=== PATIENT | male | born 1965 | race Caucasian/White ===

== ENCOUNTER 2024-12-11 10:33 | Inpatient (IN) ==
[2024-12-11 11:16] LABS: Basophils # (auto) 0.03 K/uL (0.00-0.20); Basophils % (auto) 0.2 %; Eosinophils # (auto) 0.05 K/uL (0.00-0.50); Eosinophils % (auto) 0.4 %; Hematocrit (blood only) 43.2 % (42.0-52.0); Hemoglobin 15.4 g/dl (14.0-18.0); Immature Granulocytes # (auto) 0.08 K/uL (0.01-0.20); Immature Granulocytes % (auto) 0.6 %; Lymphocytes # (auto) 0.98 K/uL (1.20-3.40); Lymphocytes % (auto) 7.3 %; Mean Corpuscular Hemoglobin 30.2 pg (25.0-34.0); Mean Corpuscular Hgb Conc 35.6 g/dL (32.0-36.0); Mean Corpuscular Volume 84.7 fL (80.0-100.0); Mean Platelet Volume 9.8 fL (9.4-12.4); Monocytes # (auto) 1.21 K/uL (0.11-0.59); Monocytes % (auto) 9.1 %; Neutrophils # (auto) 11.02 K/uL (1.40-6.50); Neutrophils % (auto) 82.4 %; Platelet Count 190 K/uL (130-400); RDW Coefficient of Variation 12.9 % (11.5-14.5); RDW Standard Deviation 39.4 fL (36.4-46.3); White Blood Count 13.37 K/ul (4.8-10.8)
[2024-12-11] MEDS: ONDANSETRON INJ 2 MG/ML 2 ML VIAL IV STA (11:26)
[2024-12-11] MEDS: FAMOTIDINE 20MG IV PUSH 20 MG/5 ML SYR IV STA (11:26)
[2024-12-11] MEDS: SODIUM CHLORIDE 0.9% 1,000 ML IV ONE (11:26)
[2024-12-11] MEDS: HYDROmorphone INJ 0.5 MG/0.5 ML SYR IV PRN (11:31)
[2024-12-11 11:34] LABS: Albumin Globulin Ratio 1.6 (0.9-2); BUN Creatinine Ratio 32.7 (10-20); Bilirubin,Total 0.6 mg/dl (0.2-1.0); Calcium 9.4 mg/dl (8.6-10.3); Creatinine Clr Calc Pharmacy 90.9 ml/min; Globulin 2.5 gm/dl (2.5-4.0); Potassium 3.8 mmol/L (3.5-5.1); Total Protein 6.5 gm/dl (6.0-8.3)
[2024-12-11] MEDS: OPTIRAY 320 100ml IV ONE (11:48)
--- NOTE | 2024-12-11 12:03 | Emergency Department Note ---
Impression & Plan Abdominal pain, acute, epigastric, S/P laparoscopic cholecystectomy ED Provider Note NAME: XENIA HUBER Jr AGE: 59 SEX: Male INFORMANT: Patient and ED PROVIDER(S): Joseluis Canales MD CHIEF COMPLAINT: Abdominal pain PLAN: Disposition: Admitted Outpatient prescription management: none Referral: None MEDICAL DECISION MAKING: Patient present because of acute abdominal pain and nausea. He had surgery 5 days ago. He received multiple doses of pain medicine prehospital and was treated with multiple doses of IV Dilaudid here. Patient did require multiple different medications to help control his nausea including Zofran, Reglan and Benadryl, and Phenergan. Despite the medications his symptoms would come back. CT scan did reveal no acute findings from a prior surgical standpoint or otherwise. He had a mild leukocytosis but no other laboratory abnormalities. Cardiac troponin and ECG were normal. I did consult with general surgery and patient was evaluated by his surgeon in the ER. No surgical findings or recommendations noted. Given the patient's symptomatology he cannot go home at this time. I believe further management in the hospital is appropriate. Consultation was made with the [facility] Hospitalist service. Patient was evaluated in the ER and admitted under Dr. Sanderson. I refer you to the EMR for further details. Care/management discussed with: pit manager, general surgery, internal medicine Level of care consideration(s): After review of the information above and other included data, I feel the patient requires escalation of care to admission Triage Nursing notes: reviewed and agree them. Vital Signs: reviewed and remarkable for no significant abnormalities Additional History obtained from: Patient's regarding his postop course. Chronic Medical/Social Conditions affecting care: none Prior/ Outside/ External records reviewed: I did obtain his operative note from 11/26/2024. No complications noted. Patient had a normal laparoscopic cholecystectomy without cholangiogram. Differential Diagnosis: Complications of cholecystectomy, Appendicitis, testicular torsion, infections, diverticulitis, UTI, obstruction, mesenteric ischemia, aortic pathology, inflammatory bowel disease, renal colic, PUD, pancreatitis, biliary pathology, hernia, volvulus, constipation, as well as other pathologies. Diagnostics, independently interpreted by me: ECG: Twelve-lead ECG reveals a normal sinus rhythm with sinus arrhythmia at 75 bpm. Incomplete right bundle branch block and nonspecific ST present. No ST elevation. Cardiac Monitoring: Cardiac monitoring ordered by me: The patient was placed on continuous cardiac monitoring and observed. It revealed a normal sinus rhythm at 80 beats per minute without ectopy or evidence of dysrhythmia. Medical decision rules: none Imaging studies: CT scan of the abdomen pelvis reveals postsurgical findings but no acute abnormalities. I refer you to the EMR for further details. HPI: 59 year old Male arrives for evaluation of acute abdominal pain. This started about 12 hours ago and is over the upper abdomen. The patient also notes the following associated symptoms, nausea. The patient has been given Zofran and fentanyl prehospital for relieving factors. Current pain is rated as 10/10. Patient notes having a cholecystectomy 5 days ago at [facility] by Dr. Dillon. States he was recovering uneventfully. Pt denies LOC, headache, fevers, chills, diaphoresis, visual changes, neck pain, chest pain, breathing difficulties, back pain, melena, hematochezia, urinary symptoms, numbness, weakness, lymphadenopathy, rash, or other complaints.. PAST MEDICAL HISTORY: See Below, arthritis PAST SURGICAL HISTORY: See Below, cholecystectomy SOCIAL HISTORY: See Below, HOME MEDICATIONS: See Below ALLERGIES: See Below VITALS: See Below PHYSICAL EXAMINATION: GENERAL: Awake, alert, uncomfortable-appearing, in no distress HENT: Normocephalic, atraumatic. Oropharynx unremarkable. EYES: Normal conjunctiva. Sclera non-icteric. NECK: Inspection normal. Non-tender. Supple. No nuchal rigidity. FROM. No masses. RESPIRATORY: Clear to auscultation. No wheezes. No rales. Mildly tachypneic. CARDIAC: Normal rate. Normal rhythm. No murmurs. No rubs. Extremities warm and well perfused. Pulses equal. No JVD. GI: Soft, non-distended. Upper tenderness to palpation. No rebound but mild guarding. No masses. Trocar sites appear clean dry and intact. RECTAL: Deferred. MUSCULOSKELETAL: Atraumatic. Chest examination reveals no tenderness. The back is symmetrical on inspection without obvious abnormality. There is no CVA tenderness to palpation. No joint edema. LOWER EXTREMITIES: Calves are equal size bilaterally and non-tender. No edema. No discoloration. NEURO: Normal sensorium. No sensory or motor deficits noted. SKIN: No rash or jaundice noted. PROCEDURES: none CRITICAL CARE: none OBSERVATION NOTE: none Past Med/Surg History Problem List (Updated 12/11/24 @ 12:09 by Joseluis Canales MD) S/P laparoscopic cholecystectomy (Acute) Abdominal pain, acute, epigastric (Acute) Greater trochanteric bursitis of right hip Tendinitis of both rotator cuffs Myofascial pain Lumbar facet joint syndrome Encounter for pre-operative examination CMC arthritis History of radicular syndrome of lower extremity (Chronic) Chronic lumbar pain (Chronic) Sacroiliitis (Chronic) Medical History History of migraine History of COVID-19 Barretts syndrome Dyslipidemia HTN (hypertension) GERD (gastroesophageal reflux disease) Surgical History H/O thumb surgery History of esophagogastroduodenoscopy (EGD) History of colonoscopy History of arthroscopic knee surgery History of elbow surgery Family History Father Family history of diabetes mellitus Other No family history of adverse response to anesthesia Social History Smoking Status: Never smoker Second Hand Exposure: No; Do You Dip or Chew Tobacco: No; Hx Alcohol Use: Yes Alcohol type: beer Hx Substance Use: No Preferred Language: Moroccan Communication Ability: Effective Resource Director Required: No Beliefs That Will Affect Care: None Current Living Situation: Spouse and Family Feels Safe at Home: Yes Assistive Devices: None Allergies Allergies Allergy/AdvReac Type Severity Reaction Status Date / Time No Known Allergies Allergy Verified 12/11/24 13:44 Home Meds Home Medications Medication Instructions Recorded Confirmed lisinopril 10 mg tablet 10 mg PO QAM 07/30/18 12/11/24 galcanezumab-gnlm 120 mg/mL 120 mg subcut MONTHLY 07/29/24 12/11/24 subcutaneous pen injector (Emgality Pen) celecoxib 200 mg capsule 200 mg PO BID 12/11/24 12/11/24 dihydroergotamine 0.5 mg/pump act. 1 spray intranasal UD PRN 12/11/24 12/11/24 (4 mg/mL) nasal spray Prolonged headache attack duloxetine 30 mg capsule,delayed 30 mg PO QAM 12/11/24 12/11/24 release iron,carbonyl 65 mg-vitamin C 125 1 tab PO Q OTHER DAY 12/11/24 12/11/24 mg tablet,delayed release (Vitron-C) promethazine 25 mg tablet 25 mg PO Q6H PRN Nausea 12/11/24 12/11/24 rabeprazole 20 mg tablet,delayed 20 mg PO DAILYBB 12/11/24 12/11/24 release rosuvastatin 5 mg tablet 5 mg PO HS 12/11/24 12/11/24 tadalafil 20 mg tablet 20 mg PO 2XWK 12/11/24 12/11/24 topiramate 100 mg tablet 100 mg PO QAM 12/11/24 12/11/24 Results & Data (ED) Vital Signs Vital Signs - 24 hr 12/11/24 10:45 12/11/24 10:56 12/11/24 11:00 Temperature 36.7 C Temperature Source Oral Pulse Rate 72 73 66 Pulse Rate [Apical] Pulse Rhythm Regular Pulse Rhythm [Apical] Pulse Strength [Apical] Respiratory Rate 16 12 20 Respiratory Effort / Characteristics Respiratory Depth Normal Respiratory Pattern Blood Pressure 151/91 H 149/93 H Blood Pressure [Right Arm] Blood Pressure Mean 111 125 Blood Pressure Mean [Right Arm] Blood Pressure Position [Right Arm] Pulse Oximetry 95 96 96 Oxygen Delivery Method Room Air Room Air Sepsis Recent Fever Within 48 Hours No Sepsis New/Unexplained Change in Mental Status N/A Sepsis Action Taken by Nursing No Action Required 12/11/24 11:30 12/11/24 12:00 12/11/24 12:18 Temperature Temperature Source Pulse Rate 71 73 67 Pulse Rate [Apical] Pulse Rhythm Pulse Rhythm [Apical] Pulse Strength [Apical] Respiratory Rate 24 22 Respiratory Effort / Characteristics Respiratory Depth Respiratory Pattern Blood Pressure 149/92 H 131/81 Blood Pressure [Right Arm] Blood Pressure Mean 117 93 Blood Pressure Mean [Right Arm] Blood Pressure Position [Right Arm] Pulse Oximetry 98 96 Oxygen Delivery Method Sepsis Recent Fever Within 48 Hours Sepsis New/Unexplained Change in Mental Status Sepsis Action Taken by Nursing 12/11/24 12:30 12/11/24 13:00 12/11/24 14:15 Temperature Temperature Source Pulse Rate 73 66 80 Pulse Rate [Apical] Pulse Rhythm Pulse Rhythm [Apical] Pulse Strength [Apical] Respiratory Rate 21 18 21 Respiratory Effort / Characteristics Respiratory Depth Respiratory Pattern Blood Pressure 141/88 H 156/94 H Blood Pressure [Right Arm] Blood Pressure Mean 101 109 Blood Pressure Mean [Right Arm] Blood Pressure Position [Right Arm] Pulse Oximetry 97 97 97 Oxygen Delivery Method Sepsis Recent Fever Within 48 Hours Sepsis New/Unexplained Change in Mental Status Sepsis Action Taken by Nursing 12/11/24 15:30 Temperature Temperature Source Pulse Rate Pulse Rate [Apical] 80 Pulse Rhythm Pulse Rhythm [Apical] Regular Pulse Strength [Apical] Normal Respiratory Rate 16 Respiratory Effort / Characteristics Non-Labored Spontaneous Respiratory Depth Normal Respiratory Pattern Regular Blood Pressure Blood Pressure [Right Arm] 152/100 H Blood Pressure Mean Blood Pressure Mean [Right Arm] 117 Blood Pressure Position [Right Arm] Lying Pulse Oximetry 97 Oxygen Delivery Method Room Air Sepsis Recent Fever Within 48 Hours Sepsis New/Unexplained Change in Mental Status Sepsis Action Taken by Nursing Laboratory Data 12/11/24 16:16 12/11/24 10:42 Lab Results 12/11/24 12/11/24 Range/Units 10:42 14:17 WBC 13.37 H (4.8-10.8) K/ul RBC 5.10 (4.70-6.10) M/uL Hgb 15.4 (14.0-18.0) g/dl Hct 43.2 (42.0-52.0) % MCV 84.7 (80.0-100.0) fL MCH 30.2 (25.0-34.0) pg MCHC 35.6 (32.0-36.0) g/dL RDW Std Deviation 39.4 (36.4-46.3) fL RDW Coeff of Mary Anne 12.9 (11.5-14.5) % Plt Count 190 (130-400) K/uL MPV 9.8 (9.4-12.4) fL Immature Gran % (Auto) 0.6 % Neut % (Auto) 82.4 % Lymph % (Auto) 7.3 % [place] % (Auto) 9.1 % Eos % (Auto) 0.4 % Baso % (Auto) 0.2 % Neut # (Auto) 11.02 H (1.40-6.50) K/uL Lymph # (Auto) 0.98 L (1.20-3.40) K/uL [place] # (Auto) 1.21 H (0.11-0.59) K/uL Eos # (Auto) 0.05 (0.00-0.50) K/uL Baso # (Auto) 0.03 (0.00-0.20) K/uL Immature Gran # (Auto) 0.08 (0.01-0.20) K/uL Sodium 139 (136-145) mmol/L Potassium 3.8 (3.5-5.1) mmol/L Chloride 108 H (98-107) mmol/L Carbon Dioxide 23 (21-32) mmol/L Anion Gap 8 (3-11) BUN 32 H (6-23) mg/dl Creatinine 0.98 (0.6-1.4) mg/dl Est Cr Clr Drug Dosing 90.9 ml/min eGFR 88.83 BUN/Creatinine Ratio 32.7 H (10-20) Glucose 138 H (70-99(Fasting)) mg/dl Calcium 9.4 (8.6-10.3) mg/dl Total Bilirubin 0.6 (0.2-1.0) mg/dl AST 23 (13-39) U/L ALT 24 (7-52) U/L Alkaline Phosphatase 56 (34-104) U/L Troponin I High Sens 7.6 (0-20) pg/ml Total Protein 6.5 (6.0-8.3) gm/dl Albumin 4.0 (3.4-5.0) gm/dl Globulin 2.5 (2.5-4.0) gm/dl Albumin/Globulin Ratio 1.6 (0.9-2) Lipase 33 (11-82) U/L Administered Medications Hydromorphone HCl (Hydromorphone Inj 0.5 Mg/0.5 Ml Syr) 0.5 mg IV Q15M PRN PRN Reason: Pain Stop: 12/25/24 11:11 Last Admin: 12/11/24 14:30 Dose: 0.5 mg Documented By: Admin: 12/11/24 12:28 Dose: 0.5 mg Documented By: Admin: 12/11/24 12:08 Dose: 0.5 mg Documented By: Admin: 12/11/24 11:31 Dose: 0.5 mg Documented By: MART Sodium Chloride (Nss) 1,000 mls @ 125 mls/hr IV .Q8H OMKAR Stop: 12/12/24 07:14 Last Admin: 12/11/24 15:25 Dose: 125 mls/hr Documented By: KENNETH Pantoprazole Sodium 40 mg/ (Dextrose) 100 mls @ 20 mls/hr IV Q5H OMKAR Stop: 01/10/25 16:44 Last Admin: 12/11/24 17:29 Dose: 8 mg/hr, 20 mls/hr Documented By: KENNETH Acetaminophen (Ofirmev) 1,000 mg in 100 mls @ 400 mls/hr IV Q8H OMKAR Stop: 12/12/24 15:59 Last Infusion: 12/11/24 17:46 Dose: Infused Documented By: Admin: 12/11/24 17:26 Dose: 400 mls/hr Documented By: KENNETH Discontinued Medications Diphenhydramine HCl (Diphenhydramine 50 Mg/Ml Vial) 12.5 mg IV NOW STA Stop: 12/11/24 12:54 Last Admin: 12/11/24 13:01 Dose: 12.5 mg Documented By: MART Sodium Chloride (Nss) 1,000 mls @ 999 mls/hr IV .Q1H1M ONE Stop: 12/11/24 12:12 Last Infusion: 12/11/24 12:37 Dose: Infused Documented By: Admin: 12/11/24 11:26 Dose: 999 mls/hr Documented By: MART Famotidine (Pepcid 20mg Iv Push) 20 mg in 5 mls @ 2.5 mls/min IV NOW STA Stop: 12/11/24 11:13 Last Admin: 12/11/24 11:26 Dose: 2.5 mls/min Documented By: MART Promethazine HCl (Phenergan) 12.5 mg in 50.5 mls @ 202 mls/hr IV NOW STA Stop: 12/11/24 15:20 Last Infusion: 12/11/24 15:38 Dose: Infused Documented By: Admin: 12/11/24 15:17 Dose: 202 mls/hr Documented By: KENNETH Pantoprazole Sodium 80 mg/ (Dextrose) 120 mls @ 480 mls/hr IV NOW ONE Stop: 12/11/24 16:44 Last Infusion: 12/11/24 17:15 Dose: Infused Documented By: Admin: 12/11/24 16:55 Dose: 480 mls/hr Documented By: KENNETH Fosaprepitant 150 mg/ Sodium (Chloride) 145 mls @ 300 mls/hr IV ONE ONE Stop: 12/11/24 16:13 Last Admin: 12/11/24 16:38 Dose: Not Given Documented By: KENNETH Metronidazole (Flagyl) 500 mg in 100 mls @ 100 mls/hr IV NOW STA Stop: 12/11/24 16:40 Last Infusion: 12/11/24 16:56 Dose: Infused Documented By: Admin: 12/11/24 15:50 Dose: 100 mls/hr Documented By: KENNETH Ciprofloxacin (Cipro / D5w) 400 mg in 200 mls @ 100 mls/hr IV NOW STA Stop: 12/11/24 17:41 Last Admin: 12/11/24 17:59 Dose: 100 mls/hr Documented By: KENNETH Fosaprepitant 150 mg/ Sodium (Chloride) 150 mls @ 300 mls/hr IV ONE ONE Stop: 12/11/24 16:29 Last Infusion: 12/11/24 17:15 Dose: Infused Documented By: Admin: 12/11/24 16:34 Dose: 300 mls/hr Documented By: KENNETH Ioversol (Optiray 320 100ml) 94 ml IV ONCE ONE Stop: 12/11/24 11:49 Last Admin: 12/11/24 11:48 Dose: 94 ml Documented By: ROBI Metoclopramide HCl (Metoclopramide Hcl Inj 5 Mg/Ml 2 Ml Vial) 5 mg IV ONE ONE Stop: 12/11/24 12:54 Last Admin: 12/11/24 13:02 Dose: 5 mg Documented By: MART Morphine Sulfate (Morphine Sulfate 10 Mg/Ml Carp/Vial) 6 mg IV NOW STA Stop: 12/11/24 15:14 Last Admin: 12/11/24 15:22 Dose: 6 mg Documented By: KENNETH Ondansetron HCl (Ondansetron Inj 2 Mg/Ml 2 Ml Vial) 4 mg IV NOW STA Stop: 12/11/24 11:13 Last Admin: 12/11/24 11:26 Dose: 4 mg Documented By: MART Imaging Data Radiologist's Impression: Abdomen/Pelvis CT 12/11/24 10:54 CT abd pelvis IV con only CLINICAL HISTORY: diffuse abd pain, gallbladder surgery 5 days ago TECHNIQUE: Helical axial images of the abdomen and pelvis were obtained and displayed. Automated dose lowering techniques and/or adjustment according to patient size were utilized for this exam. This exam was performed with intravenous contrast. CT DOSE: 1931.67 mGy.cm COMPARISON: Comparison is made to CT abdomen pelvis 11/28/2008 FINDINGS: Lower chest: Bibasilar atelectasis versus scarring is seen. Liver: Unremarkable. No focal lesions are seen. Gallbladder and biliary tree: Patient is status post cholecystectomy. No intra- or extrahepatic biliary ductal dilation. Pancreas: Unremarkable, no focal lesions. Spleen: Unremarkable. Adrenals: Unremarkable. Kidneys and ureters: Subcentimeter hypodensities are too small to characterize. Bladder: Unremarkable. Reproductive organs: Unremarkable. Bowel: The appendix is normal. A moderate hiatal hernia is seen. Lymph nodes Retroperitoneal: Unremarkable. Pelvic: Unremarkable. Mesenteric: Unremarkable. Peritoneum: Fat stranding and a small amount of free fluid is seen in the gallbladder fossa. No well-defined fluid collection is seen. Vessels: Minimal atherosclerotic disease is noted. Abdominal wall: Fat stranding seen near the umbilicus compatible with port insertion. Bones: Degenerative changes in the visualized spine. IMPRESSION: No evidence of abscess or biliary leak in this patient status post recent cholecystectomy. There is fat stranding in the right upper quadrant compatible with recent instrumentation, as well as abdominal wall fluid. ACT 112: Negative or not required by law. Electronically signed by: Jacobo Mcdonough M.D. 12/11/2024 12:06 PM Discharge Plan Visit Data Chief Complaint: GI Assessment Stated Complaint: NAUSEA, AB PAIN ED Provider: Joseluis Canales Discharge Problem: Abdominal pain, acute, epigastric, S/P laparoscopic cholecystectomy Patient Disposition: Admitted As Inpatient Discharge Instructions Interventions: ED Discharge Assessment Last Done: 12/11/24 16:36
--- NOTE | 2024-12-11 12:07 | CT Scan Report ---
CT abd pelvis IV con only CLINICAL HISTORY: diffuse abd pain, gallbladder surgery 5 days ago TECHNIQUE: Helical axial images of the abdomen and pelvis were obtained and displayed. Automated dose lowering techniques and/or adjustment according to patient size were utilized for this exam. This e xam was performed with intravenous contrast. CT DOSE: 1931.67 mGy.cm COMPARISON: Comparison is made to CT abdomen pelvis 11/28/2008 FINDINGS: Lower chest: Bibasilar atelectasis versus scarring is seen. Liver: Unremarkable. No focal lesions are seen. Gallbladder and biliary tree: Patient is status post cholecystectomy. No intra- or extrahepatic bilia ry ductal dilation. Pancreas: Unremarkable, no focal lesions. Spleen: Unremarkable. Adrenals: Unremarkable. Kidneys and ureters: Subcentimeter hypodensities are too small to characterize. Bladder: Unremarkable. Reproductive organs: Unremarkable. Bowel: The appendix is normal. A moderate hiatal hernia is seen. Lymph nodes Retroperitoneal: Unremarkable. Pelvic: Unremarkable. Mesenteric: Unremarkable. Peritoneum: Fat stranding and a small amount of free fluid is seen in the gallbladder fossa. No well- defined fluid collection is seen. Vessels: Minimal atherosclerotic disease is noted. Abdominal wall: Fat stranding seen near the umbilicus compatible with port insertion. Bones: Degenerative changes in the visualized spine. IMPRESSION: No evidence of abscess or biliary leak in this patient status post recent cholecystectomy. There is f at stranding in the right upper quadrant compatible with recent instrumentation, as well as abdominal wall fluid. ACT 112: Negative or not required by law. Electronically signed by: Jacobo Mcdonough M.D. 12/11/2024 12:06 PM
[2024-12-11] MEDS: diphenhydrAMINE 50 MG/ML VIAL IV STA (13:01)
[2024-12-11] MEDS: METOCLOPRAMIDE HCL INJ 5 MG/ML 2 ML VIAL IV ONE (13:02)
--- OUTSIDE RECORDS SUMMARY | 2024-12-11 14:46 | External Medical Summary ---
Author Name Unknown Address Unknown Organization K09:[facility] [place] [address] Laboratory Report Ordering Provider Test Date Status TERRANCE NAVARRO 11/28/2024 07:19:47 Final Observation Date Value Abnormality Reference (Units ) Status BUN 11/28/2024 07:19:47 20 6-20 (mg/dL) Final Creatinine 11/28/2024 07:19:47 1.1 0.6-1.2 (mg/dL) Final Glomerular filtration rate/1.73 sq M.predicted [Volume Rate/Area] in Serum, Plasma or Blood by Creatinine-based formula (CKD-EPI) 11/28/2024 07:19:47 76 >=60 (mL/min) Final eGFR is calculated based on the CKD-EPI 2020 equation. Sodium 11/28/2024 07:19:47 141 135-146 (m mol/L) Final Potassium 11/28/2024 07:19:47 4.3 3.5-5.1 (m mol/L) Final Cl 11/28/2024 07:19:47 107 98-107 (mm ol/L) Final CO2 11/28/2024 07:19:47 23 22-32 (mmo l/L) Final Anion gap 11/28/2024 07:19:47 11 7-15 (mmol /L) Final Glucose 11/28/2024 07:19:47 110 70-120 (mg /dL) Final Calcium 11/28/2024 07:19:47 10.1 8.4-10.2 ( mg/dL) Final Performing Location [facility] [place] [id number]
--- OUTSIDE RECORDS SUMMARY | 2024-12-11 14:46 | External Medical Summary | Summary of Care ---
Author Name Unknown Organization [facility] Address [address] [place] [address] Phone [phone] Care Team Providers Care Project Scientist Name Role Phone Buck Chawla MD Primary Care Provider + Reason for Visit * Reason Comments Outpatient Testing Encounter Details Date Type Department Care Team (Late st Contact Info) Description 11/28/2024 7:20 AM EST Laboratory Laboratory [facility] [address] [place] [id number] [facility] [address] [place] [address] Other hyperlipidemia; HTN, goal below 140/90 Allergies No known active allergiesdocumented as of this encounter (statuses as of 11/28/2024) Medications Famotidine 20 MG Oral Tablet (Pepcid) Take 1 Tablet by mouth in the morning and 1 Tablet before bedtime. Active Aspirin 81 MG Oral Tablet Delayed Release Start: 08/24/22 10:47:00 EDT 08/24/20 22 Active Magnesium Oxide 250 MG Oral Tablet Take 750 mg by mouth daily. Active Vitamin D3 125 MCG (5000 UT) Oral Capsule Take 1 Capsule by mouth in the morning. Active RABEprazole Sodium 20 MG Oral Tablet Delayed Release TAKE 1 TABLET BY MOUTH TWICE DAILY 30 MINUTES BEFORE MORNING AND EVENING MEALS 03/18/20 24 Active Tadalafil 20 MG Oral Tablet (Cialis) Take 1 Tablet by mouth once a day on Monday and Monday only. Take no more than 3 doses per week as needed for sexual activity 20 Tablet 6 05/28/20 24 Active Dihydroergotamine Mesylate 4 MG/ML Nasal Solution (Migranal) Instil 1 spray into each nostril, wait 15 min then repeat 1 spray into each nostril. Repeat these instructions once a day for 3 days for prolonged headache attack. 8 mL 5 06/27/20 24 Active Galcanezumab-gnlm 120 MG/ML Subcutaneous Solution Auto-injector (Emgality) Starting 30 days after injecting loading dose: Inject 1 ml into thigh, arm or stomach once monthly. Discard injector appropriately. 3 mL 6 06/27/20 24 Active Lisinopril 10 MG Oral Tablet (Prinivil)Indicati ons:HTN, goal below 140/90 Take 1 Tablet by mouth in the morning. 90 Tablet 3 08/08/20 24 Active DULoxetine HCl 30 MG Oral Capsule Delayed Release Particles (Cymbalta)Indicati ons:Chronic bilateral low back pain without sciatica Take 1 Capsule by mouth in the morning. 90 Capsule 1 09/10/20 24 Active Celecoxib 200 MG Oral Capsule (CeleBREX)Indicati ons:Chronic bilateral low back pain without sciatica,Generaliz ed osteoarthritis TAKE 1 CAPSULE BY MOUTH ONCE DAILY IN THE MORNING AND 1 CAPSULE ONCE DAILY BEFORE BEDTIME 180 Capsule 1 09/30/20 24 Active Ondansetron 4 MG Oral Tablet Disintegrating (Zofran) Place 2 Tablets on tongue every 8 hours as needed for Nausea. dissolve on tongue. 15 Tablet 5 10/09/20 24 Active Topiramate 100 MG Oral Tablet (topAMAX) Take 1 Tablet by mouth in the morning. 90 Tablet 2 10/09/20 24 Active Vitron-C 65-125 MG Oral Tablet (Iron-Vitamin C 65-125 mg per tab) Take 1 tablet by mouth every other day for RLS/PLMD. Repeat labs in 3-6 months. Hold iron for 48 hours prior to morning lab draw. 60 Tablet 1 10/22/20 24 Active Rosuvastatin Calcium 5 MG Oral Tablet (Crestor)Indicatio ns:Other hyperlipidemia Take 1 Tablet by mouth at bedtime. 90 Tablet 10/25/20 24 Active Calcium Carbonate 1250 (500 Ca) MG Oral Tablet Chewable Take 2 Tablets by mouth in the morning and 2 Tablets before bedtime. 07/29/20 Active oxyCODONE HCl 5 MG Oral Tablet (Oxy IR) Take 3 Tablets by mouth every 6 hours as needed. 06/18/20 Active Riboflavin 100 MG Oral Tablet ([facility] Vitamin B-2) Take 4 Tablets by mouth in the morning. Active Vitamin C 500 MG Oral Packet Take 2 Tablets by mouth in the morning. Active Promethazine HCl 25 MG Oral Tablet (Phenergan) One tab by mouth every 6 hours, max 2 tabs/day if needed for nausea. 60 Tablet 1 11/14/20 Active documented as of this encounter (statuses as of 11/28/2024) Active Problems Problem Noted Date Diagnosed Date Biliary dyskinesia 11/18/2024 Positional sleep apnea 10/11/2024 Periodic limb movement disorder (PLMD) Well adult exam 12/20/2023 Overview (11/22/2024): 05/13 sleep study no HALI 02/2024 colon WNL kiya 10y 01/13 Stress echo WNL. Prostate CA diagnosed in February 2019 (RLM and RLA 3 and 9% of cores, Gl 3+3 grade group 1) then had a benign confirmatory biopsy in March 2020 at . His psa has been fine. We got an MRI 2021 (with ativan) and he has a anterior left PIRADS 3 lesionleft apec nataly and right mid was gl 3+3 . It was biopsied 07/2022 and was visible on ultrasound. Isoechoic. He has ED H/O dysplastic nevus 03/07/2023 Overview (03/07/2023): low grade dysplastic nevus (R lower back 11/2005), dysplastic nevus (R chest) Other insomnia 03/16/2022 Benign essential tremor 03/16/2022 Gastroesophageal reflux disease without esophagi tis 03/16/2022 Helicobacter positive gastritis 03/16/2022 History of Madison's esophagus 03/16/2022 Hyperlipidemia 03/16/2022 Hx of nonmelanoma skin cancer 03/07/2022 Overview (03/13/2023): basal cell carcinoma (R central mid back 03/12, R distal calf 03/12, R distal pretibial region 03/11, R upper back 11/2005, R angle of mandible 11/2005) Other male erectile dysfunction 11/20/2019 Adenocarcinoma of prostate 03/27/2019 Hypogonadism in male 03/27/2019 HTN, goal below 140/90 documented as of this encounter (statuses as of 11/28/2024) Resolved Problems Problem Noted Date Diagnosed Date Resolved Date Ankylosing spondylitis of sacral region 12/20/2023 04/13/2024 Ankylosing spondylitis 04/22/202204/13 Dysplastic nevi 03/16/2022 03/13/2023 Inflammatory polyarthritis 03/27/2019 0 04/13/2024 documented as of this encounter (statuses as of 11/28/2024) Immunizations Name Administration Dates Next Due COVID-19 mRNA, LNP-s, No Pre serve, 2-Dose Series (Moderna) 09/10/2021,01/22/2021,12/26/2020 COVID-19 mRNA, LNP-s, No Pre serve, 2-Dose Series (Pfizer) 01/18/2022 COVID-19, mRNA, LNP-s, PF, B ooster, 100mcg/0.5mg (Moderna) 03/05/2022 Covid-19, Mrna, Lnp-s, Pf, B ivalent, 30 Mcg, IM, 12 yrs and above (Pfizer) 08/29/2022 PPD 10/02/2012 Pneumococcal Conjugate Vacc, 13 Valent (Prevnar) 03/16/2022 Pneumococcal Conjugate Vacci ne, 20-valent ([id number]) 11/22/2024 Seasonal Influenza Vac., MDV , IM, 0.5 mL (Fluzone) 07/30/2020,08/14/2019,08/20/2018,2016,09/21/2015,08/03/2014,11/18/2013,0 07/19/2012,08/27/2010 Seasonal Influenza Virus Vac cine, Unspecified Formulation 10/21/2021,11/16/2016 Seasonal Influenza, PF, 6 M & above, IM , (FluLaval or Fluzone) 10/26/2023 Seasonal Influenza, Quadriva lent, No Preserve, IM 11/16/2016 Seasonal Influenza, Trivalen t, (IIV3), PF, (Fluzone) 10/08/2024 TDAP, Age 7 and older, IM (Adacel) 10/04/2017, Zoster Vaccine Recombinant (Shingrix) 12/07/2020 ,09/18/2020 documented as of this encounter Social History Tobacco Use Types Packs/Day Years Used Date Smoking Tobacco: Never Smokeless Tobacco: Never Alcohol Use Standard Drinks/Week Comments Yes 53.3 (1 standard drink = 0.6 oz pure alcohol) rarely PHQ-2 Answer Date Recorded PHQ Adult Total Score 0 11/22/2024 Hunger Vital Sign Answer Date Recorded Within the past 12 months, y ou worried that your food would run out before you got the money to buy more. Never true 11/08/20 24 Within the past 12 months, t he food you bought just didn't last and you didn't have money to get more. Never true 11/08/2024 Childcare Answer Date Recorded Do you feel overwhelmed with taking care of a child, family member or friend? No 11/08/2024 Does your family need help f inding childcare? (Household - for ages 0-17 years) Not on file 11/08/2024 Clothing Answer Date Recorded Have you been unable to get clothing when it was really needed? No 11/08/2024 Is your family able to get c lothes or diapers when needed? (Household - for ages 0-17 years) Not on file 11/08/2024 Personal Safety Answer Date Recorded Do you feel unsafe or have concerns for your saf ety? No 11/08/2024 Do you have concerns for you r family's safety? (Household - for ages 0-17 years) Not on file 11/08/2024 Utilities Answer Date Recorded Do you have trouble paying y our heating, water, or electric bill? No 11/08/2024 Is your family able to pay t he heat, water, or electric bill? (Household - for ages 0-17 years) Not on file 11/08/2024 Does your family have access to good internet? (Household - for ages 0-17 years) Not on file 11/08/2024 Employment Status Answer Date Recorded Are you unemployed or without regular income? No 11/08/2024 Does the household have a re gular source of income? (Household - for ages 0-17 years) Not on file 11/08/2024 Social Connections Answer Date Recorded How often do you feel lonely or isolated from th ose around you? Never 11/08/2024 Financial Resource Strain Answer Date R ecorded Do you have any trouble payi ng for your medications, or do you think you might in the future? No 11/08/2024 Does your family have troubl e paying for medicine? (Household - for ages 0-17 years) Not on file 11/08/2024 Transportation Needs Answer Date Record ed Do you have trouble getting a ride to medical visits or work? (Adult - for ages 18 years and over) Not on file 11/08/2024 Does your family have a hard time getting a ride to doctors visits? (Household - for ages 0-17 years) Not on file 11/08/2024 Has lack of transportation k ept you from medical appointments, meetings, work, or from getting things needed for daily living? Check all that apply. No 11/08/2024 Do you (or your family) have trouble finding or paying for a ride (transportation)? (Household - for ages 0-17 years) Not on file 11/08/2024 Housing Stability Answer Date Recorded Do you currently live in a s helter or have no steady place to sleep at night? No 11/08/2024 Do you think you are at risk of becoming homeless? (Adult - for ages 18 years and over) Not on file 11/08/2024 Does your family worry about paying for your home or becoming homeless? (Household - for ages 0-17 years) Not on file 1 01/09/2024 Are you homeless or worried that you might be in the future? No 11/08/2024 Are you (or your family) joy eless or worried that you might be in the future? (Household - for ages 0-17 years) Not on file Food Insecurity Answer Date Recorded Do you need food for this week? No 11/08/2024 Are you able to get enough f ood for your family? (Household - for ages 0-17 years) Not on file 11/08/2024 Does your family need food t his week? (Household - for ages 0-17 years) Not on file 11/08/2024 Do you always have enough fo od for your family? 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 Not on file Not on file Not on file documented as of this encounter Plan of Treatment Upcoming Encounters Date Type Department Care Team (Latest Contact Info) Description 12/06/2024 1:15 PM EST Hospital Encounter [facility], Operating [facility] [address] [place] [phone] Tony Dillon MD [address] [place] [address] 12/06/2024 1:15 PM EST - 12/06/2024 2:39 PM EST Surgery OR [facility], Operating Room [facility] [address] [place] [phone] Tony Dillon MD [address] [place] [address] LAPAROSCOPIC CHOLECYSTECTOMY 12/18/2024 8:40 AM EST Office Visit Dermatology [address] [place] [address] Cari Marie PA-C [address] [place] [address] [place] [address] 12/23/2024 2:15 PM EST Office Visit General Surgery, [facility] [address] [place] [address] Tony Dillon MD [address] [place] [address] 02/04/2025 3:00 PM EDT Office Visit Gastroenterology, [facility] [address] [facility] [place] [address] Che Munoz CRNP [address] [place] [address] 02/12/2025 9:50 AM EDT Office Visit Rheumatology, [place] [address] [place] [address] Denise Mcdowell MD [address] [place] [address] 05/06/2025 2:30 PM EDT Office Visit Sleep Disorders Ctr [facility] [address] [place] [place] [phone] Flakita Eaton CRNP [address] [place] [address] 06/03/2025 3:30 PM EDT Telemedicine Urology [facility] [address] [place] [address] Jes Goddard MD [address] [place] [phone] Pending Results Name Type Priority Associated Diagnoses Date /Time LIPID PANEL WITH DIRECT LDL IF TG IS HIGH Lab Routine Other hyperlipidemia 11/28/2024 7:19 AM EST BASIC METABOLIC PANEL Lab Routine HTN, goal below 140/90 11/28/2024 7:19 AM EST Scheduled Procedures Name Priority Associated Diagnoses Date/Ti me LAPAROSCOPIC CHOLECYSTECTOMY Biliary dyskinesia 12/06/2024 1:15 PM EST COLONOSCOPY FLEXIBLE PROXIMA L DIAGNOSTIC Recall Screening for colon cancer Health Maintenance Due Date Last Done Comments Hepatitis B Vaccine (1 of 3 - 19+ 3-dose series) 1984 Cologuard 2010 Fecal Occult Blood Test 2010 Sigmoidoscopy 2010 COVID-19 Vaccine ( season) 2024 08/29/2022, 03/05/2022, 01/18/2022, Additional history exists GFR 06/26/2025 06/26/2024, 120 05/2023, 10/18/2023, Additional history exists Depression Screening 11/22/2025 11/22/2024 Albumin/Creatinine Ratio 10/26/2026 10/26/2023, 04/2 06/2023 Diabetes Screening 06/26/2027 06/26/2024, 1 12/18/2022, 05/25/2022, Additional history exists DTap/Tdap Vaccines (3 - Td or Tdap) 10/04/2027 10/04/2017, 01/16/2008 Lipid Panel 10/26/2028 10/26/2023, 04/2022, 03/17/2021, Additional history exists Colonoscopy 02/19/2034 02/20/2024, 0 12/2023, 11/09/2012 Colorectal Cancer Screening 02/19/2034 Zoster Vaccines Completed 12/07/2020, 09/18/2020 Influenza Vaccine (FLU shot) Completed , 10/26/2023, 10/21/2021, Additional history exists Pneumococcal Vaccine: 50+ Years Completed 11/22/2024, 03/16/2022 HPV (Gardasil) Vaccine Aged Out No lo nger eligible based on patient's age to complete this topic MENINGOCOCCAL (MENACTRA/MENVEO) Aged Out No longer eligible based on patient's age to complete this topic documented as of this encounter Medical Devices Not on filedocumented as of this encounter Visit Diagnoses Diagnosis Biliary dyskinesia- Primary Other specified disorder of gallbladder Other hyperlipidemia HTN, goal below 140/90 Unspecified essential hypertension Biliary dyskinesia Other specified disorder of gallbladder documented in this encounter Care Teams Project Scientist Relationship Specialty Start Date End Date Buck Chawla MD [address] [place] [id number] PCP - General Family Medicine 11/18/24 documented as of this encounter
--- OUTSIDE RECORDS SUMMARY | 2024-12-11 14:46 | External Medical Summary | Summary of Care ---
Author Name Unknown Organization [facility] Address [address] [place] [address] Phone [phone] Care Team Providers Care Lab Support Tech Name Role Phone Buck Chawla MD Primary Care Provider + Reason for Visit * Auth/Cert Specialty Diagnoses / Procedures Referred By Contac t Referred To Contact Diagnoses Biliary dyskinesia Biliary dyskinesia [K82.8] Procedures LAPAROSCOPY; CHOLECYSTECTOMY LAPAROSCOPIC CHOLECYSTECTOMY Tony Dillon MD [address] [place] [address] Phone: tel: fax: OR OSS, Operating Room [facility] [address] [place] [address] Phone: tel: Referral ID Status Reason Start Date Expiration Date Visits Re quested Visits Authorized [id number] Encounter Details Date Type Department Care Team (Latest Contact Info) Description 12/06/2024 6:39 AM EST - 12/06/2024 10:14 AM EST Hospital Encounter OR [facility], Operating Room [facility] [address] [place] [id number] Tony Dillon MD [address] [place] [address] Discharge Disposition: Home - Self Care Allergies No known active allergiesdocumented as of this encounter (statuses as of 12/06/2024) Medications Famotidine 20 MG Oral Tablet (Pepcid) [...] morning and 2 Tablets before bedtime. 07/29/20 24 Active oxyCODONE HCl 5 MG Oral Tablet (Oxy IR) Take 3 Tablets by mouth every 6 hours as needed. 06/18/20 24 Active Riboflavin 100 MG Oral Tablet ([facility] Vitamin B-2) Take 4 Tablets by mouth in the morning. Active Vitamin C 500 MG Oral Packet Take 2 Tablets by mouth in the morning. Active Promethazine HCl 25 MG Oral Tablet (Phenergan) One tab by mouth every 6 hours, max 2 tabs/day if needed for nausea. 60 Tablet 1 11/14/20 24 Active oxyCODONE-Acetamin ophen 5-325 MG Oral Tablet (Percocet) Take 1 Tablet by mouth every 6 hours as needed for Pain, Moderate. 10 Tablet 5 9:56 AM EST 12/06/19 25 Active documented as of this encounter (statuses as of 12/06/2024) Active Problems Problem Noted Date Diagnosed Date Biliary dyskinesia 11/18/2024 Positional sleep apnea 10/11/2024 Periodic limb movement disorder (PLMD) 4 Well adult exam 12/20/2023 Overview (11/22/2024): 05/13 sleep study no HALI 02/2024 colon WNL kiya 10y 01/13 Stress echo WNL. Prostate CA diagnosed in February 2019 (RLM and RLA 3 and 9% of cores, Gl 3+3 grade group 1) then had a benign confirmatory biopsy in March 2020 at . His psa has been fine. We got an MRI 2022 (with ativan) and he has a anterior [...] 03/16/2022 Helicobacter positive gastritis 03/16/2022 History of Ely's esophagus 03/16/2022 Hyperlipidemia 03/16/2022 Hx of nonmelanoma skin cancer 03/07/2022 Overview (03/13/2023): basal cell carcinoma (R central mid back 03/12, R distal calf 03/12, R distal pretibial region 03/11, R upper back 11/2005, R angle of mandible 11/2005) Other male erectile dysfunction 11/20/2019 Adenocarcinoma of prostate 03/27/2019 Hypogonadism in male 03/27/2019 HTN, goal below 140/90 documented as of this encounter (statuses as of 12/06/2024) Resolved Problems Problem Noted Date Diagnosed Date Resolved Date Ankylosing spondylitis of sacral region 12/20/2023 04/13/2024 Ankylosing spondylitis 04/22/202204/13 Dysplastic nevi 03/16/2022 03/13/2023 Inflammatory polyarthritis 03/27/2019 0 04/13/2024 documented as of this encounter (statuses as of 12/06/2024) Immunizations Name Administration Dates Next Due COVID-19 mRNA, LNP-s, No Pre serve, 2-Dose Series (Moderna) 09/10/2021,01/22/2021,12/26/2020 COVID-19 mRNA, LNP-s, No Pre serve, 2-Dose Series (Page Mage) 01/18/2022 COVID-19, mRNA, LNP-s, PF, B ooster, 100mcg/0.5mg (Moderna) 03/05/2022 Covid-19, Mrna, Lnp-s, Pf, B ivalent, 30 Mcg, IM, 12 yrs and above (Pfizer) 08/29/2022 PPD 10/02/2012 Pneumococcal Conjugate Vacc, 13 Valent (Prevnar) 03/16/2022 Pneumococcal Conjugate Vacci ne, 20-valent ([id number]) 11/22/2024 Seasonal Influenza Vac., MDV , IM, [...] 11/08/2024 Does the household have a re lar source of income? 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 on file Not on file Not on file documented as of this encounter Last Filed Vital Signs Vital Sign Reading Time Taken Comments Blood Pressure 142/90 12/06/2024 10:00 AM EST Pulse 78 12/06/2024 10:00 AM EST Temperature 36.3 C (97.4 F) 12/06/2024 9:30 AM ES T Respiratory Rate 18 12/06/2024 10:00 AM EST Oxygen Saturation 99% 12/06/2024 10:00 AM EST Inhaled Oxygen Concentration - - Weight 93.9 kg (207 lb) 12/06/2024 6:59 AM EST Height 190.5 cm (6' 3") 12/06/2024 6:59 AM EST Body Mass Index 25.87 12/06/2024 6:59 AM EST documented in this encounter Discharge Instructions * Discharge Instr - AVS* Tony Dillon MD - 12/06/2024 7:39 AM EST Discharge Date: 12/06/2024 The information below provides you with the instructions and the list of medications you need to betaking following discharge from the hospital. If you have any questions, please ask before leaving.Please carry this letter with you when you see your doctor in the clinic. If you have questions, you can reach us at the numbers above. Post Anesthesia Instructions: 1. Do not drive today. 2. Resume driving when surgeon permits, in 3 day(s) as long as not taking narcotics. 3. Do not make important decisions or sign legal documents today. 4. Call surgeon for: Temperature evaluation greater than 101.5 degrees Uncontrollable pain Excessive Bleeding Persistent Nausea and vomiting Medication intolerance (nausea, vomiting, or rash) 5. For nausea and vomiting use only clear liquids such as: tea, soda, bouillon until nausea subsides, then gradually increase diet as tolerated. Don't take narcotics on empty stomach, this can cause worsening of your nausea. 6. If you have any concerns or questions, call your surgeon's office, . If the physician is unavailable and it is an emergency, call [phone] or go to the nearest emergency room. Instructions for: Inguinal Hernia, Laparoscopic Hernia or Cholecystectomy, Umbilical or Ventral Hernia INCISION CARE: If present, remove any outer dressing(s) in 36 hours. The incision(s) may be sealed with sutures/khang, a skin adhesive (Dermabond), or covered with white adhesive tapes known as steri-strips. Either way there is no need to cover up the incisions again with gauze unless desired or there is drainage. TO PREVENT SWELLING: Swelling and bruising around incisions is common. If groin surgery was performed, the swelling and bruising can involve the scrotum and penis/labial area. Do not be alarmed. It will resolve on its own with time. Apply an ice pack to the incision (20 min on, 20 min off) for the first 24-48 hours to help with pain and swelling. SHOWER: You may shower 36 hours after surgery and get the incision(s) or steri-strips wet with soapy water and gently pat them dry. If the steri-strips come off in the shower, do not become concerned. If they are still in place 10 days after surgery, you may remove them. PAIN MEDICATION: You will usually be given a prescription for a narcotic pain medication (usually Vicodin or Percocet). Options for non-constipating pain medications include products that include ibuprofen or Tylenol. Avoid taking narcotic pain medication on an empty stomach as this makes more prone to nausea and vomiting, which is a side effect of these medications. BOWEL MEDICATION: To combat constipation, you may take over the counter laxatives, fiber therapy, or prune juice. Drink plenty of fluids. COMMON COMPLAINTS: Shoulder pain and gas pains from the carbon dioxide used during the procedure is common with laparoscopic preocedures. Your body absorbs this gas naturally over a 48-72 hour period. Tylenol (Acetaminophen) or Ibuprofen (Motrin) is usually sufficient to relieve this discomfort. If you have had a laparoscopic ventral hernia repair there will be a roll of gauze which should remain over your hernia site anchored with the abdominal binder. Try to keep this in place as much as possible before your first post-op clinic visit; you may take it off temporarily for baths or showers. URINATION: If you cannot urinate, sit in a warm bath then try again. Activity : Rest today. Do not do any heavy lifting (more than 20lbs pounds) or any vigorous exercise for 4 week(s). Return to School or Work: May return to work/school as tolerated on light duty; 4 week(s) to returnwithout restrictions. Diet: Resume previous diet Follow-up Visit with: When: in 2 weeks Discharged To: Home documented in this encounter Progress Notes * Tony Dillon MD - 12/06/2024 9:29 AM EST [facility] [address] [id number] OUTPATIENT SURGERY DISCHARGE SUMMARY NOTE Name: Jesenia Olmedo Location: OR [facility]/OR Date: 12/06/2024 Time: 9:29 AM Surgery Date: 12/06/2024 Procedure: LAPAROSCOPIC CHOLECYSTECTOMY N/A Surgeon: Tony Dillon MD Discharge Diagnosis: biliary dyskinesia After examination of this patient, I have determined he is ready for discharge to home when the patient meets criteria. Discharge instructions were given to the patient. documented in this encounter H&P Notes * Tony Dillon MD - 12/06/2024 7:35 AM EST No changes B CTA RRR Abd: benign Source Note - Tony Dillon MD - 11/18/2024 8:18 AM EST [address] [address] [facility] Chief Complaint Patient presents with NEW PATIENT Nausea and gallbladder issues History of Present Illness: Jesenia Olmedo Jr. is a 59 year old male who has been having right upperquadrant pain. The pain has been present for months. The pain does not radiate to the patient's back. The patient does have nausea associated with it. The patient does not have any jaundice associated with it. The pain is made worse by fatty or fried foods. Characteristics of the pain are as follows: Location: RUQ without radiation Quality: pressure Chronicity: Onset month(s) ago, stable since Aggravating factors: eating and fatty foods Alleviating factors: none Associated symptoms: anorexia and nausea Past Medical History Past Medical History: Diagnosis Date Gastroesophageal reflux disease without esophagitis HTN, goal to be determined Other hyperlipidemia Prostate cancer (HCC) 2020 some atypical cells, just monitoring Past Surgical History Past Surgical History: Procedure Laterality Date COLONOSCOPY, DIAGNOSTIC (RECTUM) 02/20/2024 hemorrhoids/recall 10 years/COLONOSCOPY FLEXIBLE PROXIMAL DIAGNOSTIC performed by Rashawn Nuno DO at ENDOSCOPY [facility] EGD, FLEXIBLE, DIAGNOSTIC 02/02/2016 acid reflux, HH/ESOPHAGOGASTRODUODENOSCOPY (EGD), FLEXIBLE, TRANSORAL, DIAGNOSTIC performed by Wendy Mathew DO at ENDOSCOPY [facility] EGD, FLEXIBLE, DIAGNOSTIC 04/27/2021 hiatal hernia, normal bx / ESOPHAGOGASTRODUODENOSCOPY (EGD), FLEXIBLE, TRANSORAL, DIAGNOSTIC performed by Eliot Patterson MD at ENDOSCOPY [facility] EGD, FLEXIBLE, W/BIOPSY 09/2010 nl tissue bx, no ely's HAND/FINGER SURGERY NEC Left trapeziectomy INFORMATION 2001 right knee repair OTHER VASECTOMY PROSTATE BIOPSY 03/11/2019 done in office, Dr Goddard Medications: Current Outpatient Medications Medication Sig Dispense Refill Famotidine 20 MG Oral Tablet (Pepcid) Take 1 Tablet by mouth in the morning and 1 Tablet before bedtime. Aspirin 81 MG Oral Tablet Delayed Release Start: 08/24/22 10:47:00 EDT Magnesium Oxide 250 MG Oral Tablet Take 750 mg by mouth daily. Vitamin D3 125 MCG (5000 UT) Oral Capsule Take 1 Capsule by mouth in the morning. RABEprazole Sodium 20 MG Oral Tablet Delayed Release TAKE 1 TABLET BY MOUTH TWICE DAILY 30 MINUTES BEFORE MORNING AND EVENING MEALS Tadalafil 20 MG Oral Tablet (Cialis) Take 1 Tablet by mouth once a day on Monday and Monday only. Take no more than 3 doses per week as needed for sexual activity 20 Tablet 6 Dihydroergotamine Mesylate 4 MG/ML Nasal Solution (Migranal) Instil 1 spray into each nostril, wait15 min then repeat 1 spray into each nostril. Repeat these instructions once a day for 3 days for prolonged headache attack. 8 mL 5 Galcanezumab-gnlm 120 MG/ML Subcutaneous Solution Auto-injector (Emgality) Starting 30 days after injecting loading dose: Inject 1 ml into thigh, arm or stomach once monthly. Discard injector appropriately. 3 mL 6 Lisinopril 10 MG Oral Tablet (Prinivil) Take 1 Tablet by mouth in the morning. 90 Tablet 3 DULoxetine HCl 30 MG Oral Capsule Delayed Release Particles (Cymbalta) Take 1 Capsule by mouth in the morning. 90 Capsule 1 Celecoxib 200 MG Oral Capsule (CeleBREX) TAKE 1 CAPSULE BY MOUTH ONCE DAILY IN THE MORNING AND 1 CAPSULE ONCE DAILY BEFORE BEDTIME 180 Capsule 1 Ondansetron 4 MG Oral Tablet Disintegrating (Zofran) Place 2 Tablets on tongue every 8 hours as needed for Nausea. dissolve on tongue. 15 Tablet 5 Topiramate 100 MG Oral Tablet (topAMAX) Take 1 Tablet by mouth in the morning. 90 Tablet 2 Vitron-C 65-125 MG Oral Tablet (Iron-Vitamin C 65-125 mg per tab) Take 1 tablet by mouth every other day for RLS/PLMD. Repeat labs in 3-6 months. Hold iron for 48 hours prior to morning lab draw. 60 Tablet 1 Rosuvastatin Calcium 5 MG Oral Tablet (Crestor) Take 1 Tablet by mouth at bedtime. 90 Tablet 0 Calcium Carbonate 1250 (500 Ca) MG Oral Tablet Chewable Take 2 Tablets by mouth in the morning and 2 Tablets before bedtime. oxyCODONE HCl 5 MG Oral Tablet (Oxy IR) Take 3 Tablets by mouth every 6 hours as needed. Riboflavin 100 MG Oral Tablet ([facility]S Vitamin B-2) Take 4 Tablets by mouth in the morning. Vitamin C 500 MG Oral Packet Take 2 Tablets by mouth in the morning. Promethazine HCl 25 MG Oral Tablet (Phenergan) One tab by mouth every 6 hours, max 2 tabs/day if needed for nausea. 60 Tablet 1 No current facility-administered medications for this visit. Allergies: Allergies as of 11/18/2024 (No Known Allergies) Family History Family History Problem Relation Name Age of Onset Heart Disorder Mother Arthritis Mother Heart failure Mother Other (congestive Heart failure) Mother Cancer Father prostate Hypertension Father Heart failure Father Arthritis Sister Arthritis Sister No Known Problems Brother No Known Problems Brother Social History Social History Socioeconomic History Marital status: Spouse name: Not on file Number of children: Not on file Years of education: Not on file Highest education level: Not on file Occupational History Not on file Tobacco Use Smoking status: Never Smokeless tobacco: Never Vaping Use Vaping status: Never Used Substance and Sexual Activity Alcohol use: Yes Alcohol/week: 53.3 standard drinks of alcohol Comment: rarely Drug use: Never Sexual activity: Yes Partners: Female Other Topics Concern Not on file Social History Narrative Not on file Social Needs Financial Resource Strain: Low Risk (11/08/2024) Financial Resource Strain Do you have any trouble paying for your medications, or do you think you might in the future? (Adult - for ages 18 years and over): No Does your family have trouble paying for medicine? (Household - for ages 0-17 years): Not on file Food Insecurity: No Food Insecurity (11/08/2024) Food Insecurity Do you need food for this week? (Adult - for ages 18 years and over): No Are you able to get enough food for your family? (Household - for ages 0-17 years): Not on file Does your family need food this week? (Household - for ages 0-17 years): Not on file Do you always have enough food for your family? (Household - for ages 0-17 years): Not on file Transportation Needs: No Transportation Needs (11/08/2024) Transportation Needs Do you have trouble getting a ride to medical visits or work? (Adult - for ages 18 years and over):Not on file Does your family have a hard time getting a ride to doctors visits? (Household - for ages 0-17 years): Not on file Has lack of transportation kept you from medical appointments, meetings, work, or from getting things needed for daily living? Check all that apply. (Adult - for ages 18 years and over): No Do you (or your family) have trouble finding or paying for a ride (transportation)? (Household - for ages 0-17 years): Not on file Social Connections: Socially Integrated (11/08/2024) Social Connections How often do you feel lonely or isolated from those around you? (Adult - for ages 18 years and over): Never Housing Stability: Low Risk (11/08/2024) Housing Stability Do you currently live in a mcfp or have no steady place to sleep at night? (Adult - for ages 18 years and over): No Do you think you are at risk of becoming homeless? (Adult - for ages 18 years and over): Not on file Does your family worry about paying for your home or becoming homeless? (Household - for ages 0-17 years): Not on file Are you homeless or worried that you might be in the future? (Adult - for ages 18 years and over): No Are you (or your family) homeless or worried that you might be in the future? (Household - for ages0-17 years): Not on file ROS: GEN: no weight loss, fever, fatigue HEENT: no changes in vision or hearing, no sinus problems, no sore throat, no hoarseness RESPIRATORY: no cough, wheezing, SOB or change in breathing CARDIOVASCULAR: no exertional chest pain, dyspnea, palpitations GI: see HPI , otherwise negative : no dysuria, hematuria, frequency MUSCULOSKELETAL: no change in joint pains, no new arthritis PSYCHIATRIC: no significant anxiety or depression, unchanged sleep pattern HEME: no bleeding tendency, no clotting tendency NEURO: no significant headache, no seizures , no tremors SKIN: no new rashes, no itching Physical Exam: Blood pressure 143/83, pulse 66, temperature 36.1 C (96.9 F), weight 93.9 kg (207 lb). Constitutional: alert,healthy,well nourished Head: normocephalic,atraumatic Eyes: conjunctiva non-injected,sclera white,EOMI Ears: pinna normal shape and color Neck: supple,no JVD,trachea midline Lungs: clear to auscultation,breath sounds are equal and symmetric,no crepitus Heart: regular rate & rhythm,no murmur, gallops or rubs Abdomen: soft, normal bowel sounds, no hernias, positive mild right upper quadrant tenderness Back: normal curvature,normal ROM,no CVA tenderness Extremities: no joint deformities, effusion, or inflammation,no edema,no skin discoloration Neuro: alert,gait normal,motor normal Skin: no obvious rashes or significant lesions,warm and dry with good turgor Imaging: EXAM NM HEPATOBILIARY SYSTEM WITH PHARMACOLOGIC INTERVENTION - 11/12/2024 12:58 pm HISTORY episodes of severe nausea; US w borderline gallbladder wall thickening COMPARISON Abdominal ultrasound dated 11/06/2024 TECHNIQUE Following the intravenous administration of 5.8 mCi of Tc-99m mebrofenin (Choletec), dynamic anterior imaging of the right upper quadrant was performed for 60 minutes. Subsequently, 1.9 mcg of intravenous CCK was administered and imaging was continued. FINDINGS Prompt uptake of radiotracer seen throughout the hepatic parenchyma. The central biliary ducts and the common bile duct are visualized. The gallbladder begins to fill at 7 minutes, and small bowel activity is seen at 9 minutes. The patient reported right upper quadrant discomfort with CCK administration. Excretion of tracer from the gallbladder into the small bowel is noted. Quantitative analysis reveals a gallbladder ejection fraction of 93%. IMPRESSION IMPRESSION 1. Patent cystic and common bile ducts. 2. Gallbladder ejection fraction is elevated at 93%. In combination with right upper quadrant discomfort with CCK administration, this may suggest a hyperkinetic gallbladder. EXAM: US ABDOMEN LIMITED HISTORY: intermittent episodes of severe nausea; r/o gallbladder and bile duct abnormalities TECHNIQUE: Real-time scanning performed right upper quadrant COMPARISON: None available FINDINGS: Gallbladder: Gallbladder it is nondistended. It is actually relatively contracted. Patient states appropriately NPO. There is no cholelithiasis or demonstrable intraluminal sludge. Gallbladder wall thickness is prominent at 3.5 mm. There is no other evidence of acute cholecystitis such as pericholecystic fluid and technologist reports a negative ultrasound Story sign. There is no intrahepatic biliary dilatation. There is no extrahepatic biliary dilatation with the common duct measuring approximally 3 mm there is no gross choledocholithiasis. Liver: Size length: Right lobe approximate 16.2 cm; mildly prominent Visualized parenchyma appears homogeneous and within normal limits as to echotexture. In the right lobe of the liver there is a small ovoid well-defined sonolucent (allowing for technical artifact) structure which is ultrasonographically compatible with a cyst. This measures approximally 0.8 cm x 0.6 cm x 0.9 cm. There is no addition focal lesion. Visualized surface contour appears smooth withoutnodularity. Ascites: None demonstrated right upper quadrant Pancreas: Unfortunately, pancreatic bed obscured by overlying bowel. Limited visualized portions ofparenchyma demonstrate no discrete focal lesion or pancreatic ductal dilatation. Right Kidney: Size length: 11.2 cm In the mid/lower aspect of the kidney there is a small ovoid well-defined sonolucent (allowing for technical artifact) structure ultrasonographically compatible with a cyst measuring 0.8 cm x 0.6 cm x 0.8 cm no other focal lesion is identified. Cortex maintained as to thickness. It may be mildly diffusely increased in echotexture which is a nonspecific finding but perhaps reflects an element of chronic medical renal disease in correct clinical setting. No hydronephrosis. No demonstrable intrarenal calculus or perinephric abnormality. Right pleural effusion: None demonstrated IMPRESSION IMPRESSION: Relatively contracted gallbladder as discussed. Hepatic and renal cyst. Question of possible mild element chronic medical renal disease. I have reviewed the radiologic study and my intrepretation is no stones or sludge. Impression: Jesenia Olmedo is a 59 year old male with biliary dyskinesia. I feel that the patient is a good candidate for laparascopic cholecystectomy. Treatment Plan: Laparascopic cholecystectomy. Risks discussed with the patient, including but not limited to: bleeding, infection, conversion to open, injury to the common bile duct, bile leak, retained common bile duct stone requiring ERCP, postoperative diarrhea and intolerance to foods postoperatively. Expected same day nature of surgery and recovery period reviewed. All of the patient's questions have been answered. Will check CBC, CMP, EKG preoperatively. [facility] schedule at [facility] on . Attending: Tony Dillon MD 11/18/2024 8:05 AM documented in this encounter Nursing Notes * Milena Weathers RN - 12/06/2024 10:11 AM EST Patient is alert, pain #1/10 abdominal pressure , incisions clean and dry and tolerating po fluids prior to discharge. Patient has received and demonstrates understanding of discharge instructions. Patient is transported ambulatory to private auto accompanied by and staff. * Milena Weathers RN - 12/06/2024 9:30 AM EST Pt received PACU II awake, denies pain, abdominal incisions x 4 clean and dry, ice in place. Takingpo fluids and retaining. * Aliya Levin RN - 12/06/2024 9:25 AM EST Pt awake and alert, reports "tolerable" pain to abd, denies nausea. Pt with dermabond in place to abd incision sites x 4. * Aliya Levin RN - 12/06/2024 9:12 AM EST Pt rests with eyes closed and arouses easily, no c/o pain or nausea, pt returns to sleep. * Aliya Levin RN - 12/06/2024 9:01 AM EST Pt received from OR, report received from [employer]PERVISOR and VS reviewed. Pt arousable to name, no c/o pain or nausea. Pt with dermabond to lap sites x 4 to abd. * Tonya Guevara RN - 12/06/2024 6:46 AM EST Surgical consent verified with patient. Patient agrees with listed procedure and verified signature. documented in this encounter OR Notes * OR Surgeon - Tony Dillon MD - 12/06/2024 7:37 AM EST Operative note Date of procedure: 12/06/2024 Pre-op diagnosis: biliary dyskinesia Post-op diagnosis: same Procedure: Laparoscopic cholecystectomy without cholangiogram Surgeon: Tony Dillon MD Manager Primary: none Anesthesia: GETA w/marcaine EBL: 5 cc Drains: none Complications: none Specimens: gallbladder to pathology Indication for procedure: This patient presents with gallbladder disease. We have discussed optionsand I have recommended operative intervention. They understand the risks of open procedure, bile duct injury, retained CBD stone, bleeding, and bile leak. Findings: few gallbladder adhesions The patient received 2 gm of ancef preoperatively. After induction of excellent general endotracheal anesthesia, their abdomen was prepped an draped in normal sterile fashion. A transverse supraumbilical incision was made and dissection was taken down to identify the anterior fascia. Two vicryl sutures were placed on either side of the midline and an incision was made in the midline. The peritoneal cavity was entered bluntly and a Melvin port was placed into the peritoneal cavity, good pneumoperitoneum was achieved to 15 mmHg pressure. A 11mm subxiphoid and two 5mm lateral blunt trocars were placed under direct visualization. A good diagnostic laparoscopic view was performed and the above was noted. The patient was placed into a head up and rolled to the left position. The fundus of the gallbladder was retracted superiorly and the neck was pushed laterally exposing the cystic duct and cystic artery. The structures were then skeletonized creating a medial and lateral window between the structures and the liver bed. Once this critical view was noted, three clips were placed on the cystic duct distally and one proximally. The cystic duct was then transected. The cystic artery was then clipped twice proximally and once distally and then transected. The gallbladder was then removed from the liver bed using a hook cautery. It was then placed into an endobag and removed via the supraumbilical incision. There was around 5 cc of blood loss in removing the gallbladder. The gallbladderwas sent for pathologic evaluation and the pneumoperitoneum re-established. Hemostasis was noted and the clips were well placed on the cystic artery and duct stumps. The abdomen was then irrigated and suctioned to clear. The ports were then removed and the pneumoperitoneum was decompressed. Vicryl sutures were then used to close the fascia, SQ, and skin. Dermabond was placed to reinforce the closures. Sterile dressings were applied. The patient was awakened from anesthesia and taken to recoveryin stable condition. Tony Dillon MD 12/06/2024 8:55 AM documented in this encounter Plan of Treatment Upcoming Encounters Date Type Department Care Team (Late st Contact Info) Description 12/18/2024 8:40 AM EST Office Visit Dermatology [address] [place] [address] Cari Marie PA-C [address] [place] [address] [place] [address] 12/23/2024 2:15 PM EST Office Visit General Surgery, [facility] [address] [facility] [place] [address] Tony Dillon MD 132 [facility] [place] [address] 02/04/2025 3:00 PM EDT Office Visit Gastroenterology, [facility] [address] [place] [address] Che Munoz CRNP 132 [place] [address] 02/12/2025 9:50 AM EDT Office Visit Rheumatology, [place] [address] [place] [address] Denise Mcdowell MD [address] [place] [address] 05/06/2025 2:30 PM EDT Office Visit Sleep Disorders Ctr [facility] 132 [place] [phone] Flakita Eaton CRNP [address] [place] [address] 06/03/2025 3:30 PM EDT Telemedicine Urology [address] [address] Jes Goddard MD [address] [place] [phone] Pending Results Name Type Priority Associated Diagnoses Date /Time SURGICAL PATHOLOGY Pathology Routine Biliary dyskinesia 12/06/2024 8:20 AM EST Scheduled Orders Name Type Priority Associated Diagnoses Orde r Schedule SURGICAL PATHOLOGY Pathology Routine Biliary dyskinesia Release Upon Ordering for 1 Occurrences starting 12/06/2024, 1 completed Scheduled Procedures Name Priority Associated Diagnoses Date/Ti me LAPAROSCOPIC CHOLECYSTECTOMY Biliary dyskinesia 12/06/2024 7:26 AM EST COLONOSCOPY FLEXIBLE PROXIMA L DIAGNOSTIC Recall Screening for colon cancer Health Maintenance Due Date Last Done Comments Hepatitis B Vaccine (1 of 3 - 19+ 3-dose series) 1984 Cologuard 2010 Fecal Occult Blood Test 2010 Sigmoidoscopy 2010 COVID-19 Vaccine ( season) 2024 08/29/2022, 03/05/2022, 01/18/2022, Additional history exists Depression Screening 11/22/2025 11/22/2024 GFR 11/28/2025 11/28/2024, 080 05/2024, 10/26/2023, Additional history exists Albumin/Creatinine Ratio 10/26/2026 10/26/2023, 02/19 DTap/Tdap Vaccines (3 - Td or Tdap) 10/04/2027 10/04/2017, 01/16/2008 Diabetes Screening 11/28/2027 11/28/2024, 0 06/26/2024, 10/18/2023, Additional history exists Lipid Panel 11/28/2029 11/28/2024, 1205/2023, 05/25/2022, Additional history exists Colonoscopy 02/19/2034 02/20/2024, 12/2023, 11/09/2012 Colorectal Cancer Screening 02/19/2034 Zoster [...] dyskinesia- Primary Other specified disorder of gallbladder documented in this encounter Administered Medications Inactive Administered Medications - up to 3 most recent administrations Medication Order MAR Action Action Date Dose Rate Site Acetaminophen (Tylenol) tab 650 mg 650 mg, Oral, PRN Pain, Mild, Starting on Mon12/06/24 at 0939, Until Mon12/06/24 at 1414, For 1 dose, Maximum of 4 grams (4000 mg) per day., Post-op Acetaminophen (Tylenol) tab 975 mg 975 mg, Oral, ONCE, On Mon12/06/24 at 0745, For 1 dose, Maximum of 4 grams (4000 mg) per day. Given 12/06/2024 7:23 AM EST 975 mg ceFAZolin in dextrose (Ancef) ivpb 2 g 2 g, IV Piggyback, PREOP, 1 dose, First dose on Mon12/06/24 at 0815, Administer 60 minutes prior to skin incision, Pre-Op Given 12/06/2024 8:14 AM EST 2 g New Bag 12/06/2024 7:46 AM EST 2 g 100 mL/hr chlorhexidine gluconate cloth 2 % pad 1 Pad 1 Pad, External, PREOP, First dose on Mon12/06/24 at 0815, Last dose on Mon12/06/24 at 0815, For 1 dose, Cleanse surgical site area immediately before transferring intra-op, Pre-Op Given 12/06/2024 7:41 AM EST 1 Pad dexAMETHasone Sodium Phosphate (Decadron) 4 MG/ML inj 4 mg 4 mg, IV Push, PRN Nausea, Starting on Mon12/06/24 at 0903, Until Mon12/06/24 at 1414, For 1 dose, PROTECT FROM LIGHT, PACU fentaNYL (PF) inj 25 mcg 25 mcg, IV Push, PRN Pain, Severe, Starting on Mon12/06/24 at 0903, Until Mon12/06/24 at 1414, For 6 doses, When given IV Push its recommended that the dose be given over 3 to 5 minutes., PACU Isolyte-S pH 7.4 infusion Intravenous, at 25 mL/hr, Plasma-LYTE 148, isolyte-S, and isolyte-S pH 7.4 are considered equivalent - including for MAR barcode scanning., CONTINUOUS, Starting on Mon12/06/24 at 0745, Until Mon12/06/24 at 1414, Pre-Op Continue from Pre-Op 12/06/2024 7:48 AM EST 25 mL/hr New Bag 12/06/2024 7:23 AM EST 25 mL/hr ondansetron (Zofran) inj 4 mg 4 mg, IV Push, PRN Nausea, Starting on Mon12/06/24 at 0903, Until Mon12/06/24 at 1414, For 1 dose, PACU oxygen GAS Inhalation, OXYGEN, First dose on Mon12/06/24 at 0945, Until Discontinued, Device/Managed by: Low Flow Device, Goal SPO2 (%): 91-95, Starting Device: Simple Mask, Initial Flow Rate (LPM): 6, Lowest Support: Nasal Cannula: Flow 0-6 LPM. Titrate up/down by 1 LPM., Titration Interval: Q2 minutes and as needed., Notify Provider: For sudden DECREASE in resting SPO2 to less than 85% and when escalating delivery device., PACU I - Oxygen for saturation below 95% as indicated per anesthesia. PACU I - Discontinue oxygen when patient is responsive and oxygen saturation is maintained above 94% on room air or same as preanesthetic level. Povidone-Iodine nasal swab 4 Swab 4 Swab, Nasal, PREOP, First dose on Mon12/06/24 at 0815, Last dose on Mon12/06/24 at 0815, For 1 dose, Tilt the bottle slightly, dip one swab into solution and stir vigorously for 10 seconds. Withdraw the swab slowly to avoid wiping solution off during removal. Insert swab comfortably into one nostril and rotate for 15 seconds, covering all surfaces. Then focus on the inside tip of nostril and rotate for an additional 15 seconds. Using a new swab, Repeat above steps in the other nostril (Swab 2). Repeat the application in both nostrils using a fresh swab each times (Swab 3 and 4)., Pre-Op Given 12/06/2024 7:30 AM EST 4 Swabs documented in this encounter Active and Recently Administered Medications Times are shown in EST. Scheduled Medication Order 12/04/2024 12/05/2024 12/06/2024 Acetaminophen (Tylenol) tab 975 mg (COMPLETED) 975 mg, Oral, ONCE, On Mon12/06/24 at 0745, For 1 dose, Maximum of 4 grams (4000 mg) per day. 0723 (Given - Provid er: Tonya Guevara RN) Acetaminophen (Tylenol) tab 975 mg 975 mg, Oral, PREOP, First dose on Mon12/06/24 at 0815, Last dose on Mon12/06/24 at 0815, For 1 dose, Maximum 4 g acetaminophen/day. Avoid in patients with severe hepatic impairment or severe active liver disease. Administer 60 minutes prior to OR., Pre-Op 0815 (Due) ceFAZolin in dextrose (Ancef) ivpb 2 g (COMPLETED) 2 g, IV Piggyback, PREOP, 1 dose, First dose on Mon12/06/24 at 0815, Administer 60 minutes prior to skin incision, Pre-Op 0746 (New Bag - Prov ider: Tonya Guevara RN)0814 (Given - Provider: SHAGUFTA Calderon) chlorhexidine gluconate cloth 2 % pad 1 Pad (COMPLETED) 1 Pad, External, PREOP, First dose on Mon12/06/24 at 0815, Last dose on Mon12/06/24 at 0815, For 1 dose, Cleanse surgical site area immediately before transferring intra-op, Pre-Op 0741 (Given - Provid er: Tonya Guevara RN) oxygen GAS Inhalation, OXYGEN, First dose on Mon12/06/24 at 0945, Until Discontinued, Device/Managed by: Low Flow Device, Goal SPO2 (%): 91-95, Starting Device: Simple Mask, Initial Flow Rate (LPM): 6, Lowest Support: Nasal Cannula: Flow 0-6 LPM. Titrate up/down by 1 LPM., Titration Interval: Q2 minutes and as needed., Notify Provider: For sudden DECREASE in resting SPO2 to less than 85% and when escalating delivery device., PACU I - Oxygen for saturation below 95% as indicated per anesthesia. PACU I - Discontinue oxygen when patient is responsive and oxygen saturation is maintained above 94% on room air or same as preanesthetic level. 0945 (Due) Povidone-Iodine nasal swab 4 Swab (COMPLETED) 4 Swab, Nasal, PREOP, First dose on Mon12/06/24 at 0815, Last dose on Mon12/06/24 at 0815, For 1 dose, Tilt the bottle slightly, dip one swab into solution and stir vigorously for 10 seconds. Withdraw the swab slowly to avoid wiping solution off during removal. Insert swab comfortably into one nostril and rotate for 15 seconds, covering all surfaces. Then focus on the inside tip of nostril and rotate for an additional 15 seconds. Using a new swab, Repeat above steps in the other nostril (Swab 2). Repeat the application in both nostrils using a fresh swab each times (Swab 3 and 4)., Pre-Op 0730 (Given - Provid er: Tonya Guevara RN) Continuous Medication Order 12/04/2024 12/05/2024 12/06/2024 Isolyte-S pH 7.4 infusion Intravenous, at 25 mL/hr, Plasma-LYTE 148, isolyte-S, and isolyte-S pH 7.4 are considered equivalent - including for MAR barcode scanning., CONTINUOUS, Starting on Mon12/06/24 at 0745, Until Mon12/06/24 at 1414, Pre-Op 0723 (New Bag - Prov ider: Tonya Guevara RN)0748 (Continue from Pre-Op - Provider: SHAGUFTA Calderon) PRN Medication Order 12/04/2024 12/05/2024 12/06/2024 Acetaminophen (Tylenol) tab 650 mg 650 mg, Oral, PRN Pain, Mild, Starting on Mon12/06/24 at 0939, Until Mon12/06/24 at 1414, For 1 dose, Maximum of 4 grams (4000 mg) per day., Post-op BUPivacaine-EPINEPHrine (Sensorcaine W/ Epi) 0.5%-1:858259 inj (CANCELED) ONCE PRN INTRA PROCEDURE, Starting on Mon12/06/24 at 0821, Until Mon12/06/24 at 0849, Intra-Op 0821 (Given - Provid er: Tony Dillon MD - Comment: x4 abdominal port sites) dexAMETHasone Sodium Phosphate (Decadron) 4 MG/ML inj 4 mg 4 mg, IV Push, PRN Nausea, Starting on Mon12/06/24 at 0903, Until Mon12/06/24 at 1414, For 1 dose, PROTECT FROM LIGHT, PACU fentaNYL (PF) inj 25 mcg 25 mcg, IV Push, PRN Pain, Severe, Starting on Mon12/06/24 at 0903, Until Mon12/06/24 at 1414, For 6 doses, When given IV Push its recommended that the dose be given over 3 to 5 minutes., PACU ondansetron (Zofran) inj 4 mg 4 mg, IV Push, PRN Nausea, Starting on Mon12/06/24 at 0903, Until Mon12/06/24 at 1414, For 1 dose, PACU sodium chloride IR 0.9 % irrigation (CANCELED) ONCE PRN INTRA PROCEDURE, Starting on Mon12/06/24 at 0838, Until Mon12/06/24 at 0849, Intra-Op 0838 (Given - Provid er: Tony Dillon MD) documented in this encounter Advance Directives * Full Code (Latest Code Status on File) Date Activated Date Inactivated Comments 12/06/2024 9:29 AM 12/06/2024 2:14 PM This order r eflects the patients wishes and were consensually agreed upon. Question Answer Comments Discussion of Advance Directives occurred with: Patient * Full Code Date Activated Date Inactivated Comments 12/06/2024 7:36 AM 12/06/2024 9:29 AM This order r eflects the patients wishes and were consensually agreed upon. Question Answer Comments Discussion of Advance Directives occurred with: Patient Care Teams Lab Support Tech Relationship Specialty Start Date End Date Buck Chawla MD [address] [place] [address] PCP - General Family Medicine 11/18/24 documented as of this encounter
--- OUTSIDE RECORDS SUMMARY | 2024-12-11 14:46 | External Medical Summary | Summary of Care ---
Author Name Unknown Organization [facility] Address [address] [place] [address] Phone [phone] Care Team Providers Care Engagement Specialist Name Role Phone Buck Chawla MD Primary Care Provider + Encounter Details Date Type Department Care Team ([facility] st Contact Info) Description 08/30/2024 Telephone Neurology, [facility] [address] [place] [address] Loly Wright MD [address] [place] [address] Allergies No known active allergiesdocumented as of this encounter (statuses as of 11/29/2024) Medications Famotidine 20 MG Oral Tablet (Pepcid) Take 1 Tablet by mouth in the morning and 1 Tablet before bedtime. Active Aspirin 81 MG Oral Tablet Delayed Release Start: 08/24/22 10:47:00 EDT 022 Active Magnesium Oxide 250 MG Oral Tablet Take 750 mg by mouth daily. Active Vitamin D3 125 MCG (5000 UT) Oral Capsule Take 1 Capsule by mouth in the morning. Active RABEprazole Sodium 20 MG Oral Tablet Delayed Release TAKE 1 TABLET BY MOUTH TWICE DAILY 30 MINUTES BEFORE MORNING AND EVENING MEALS 024 Active Tadalafil 20 MG Oral Tablet (Cialis) Take 1 Tablet by mouth once a day on Monday and Monday only. Take no more than 3 doses per week as needed for sexual activity 20 Tablet 6 024 Active Dihydroergotamine Mesylate 4 MG/ML Nasal Solution (Migranal) Instil 1 spray into each nostril, wait 15 min then repeat 1 spray into each nostril. Repeat these instructions once a day for 3 days for prolonged headache attack. 8 mL 5 024 Active Galcanezumab-gnlm 120 MG/ML Subcutaneous Solution Auto-injector (Emgality) Starting 30 days after injecting loading dose: Inject 1 ml into thigh, arm or stomach once monthly. Discard injector appropriately. 3 mL 6 024 Active Lisinopril 10 MG Oral Tablet (Prinivil)Indicat ions:HTN, goal below 140/90 Take 1 Tablet by mouth in the morning. 90 Tablet 3 024 Active Betamethasone Dipropionate 0.05 % External OintmentIndicatio ns:Prurigo Apply 2x daily (or more if itchy instead of scratching) to scalp lesion until resolved 15 g 021 2023 Discontinued(M edication List Clean Up) Vitamin C 500 MG Oral Tablet (Ascorbic Acid) Take 1 Tablet by mouth in the morning. 2023 Discontinued DULoxetine HCl 30 MG Oral Capsule Delayed Release Particles (Cymbalta)Indicat ions:Chronic bilateral low back pain without sciatica Take 1 Capsule by mouth in the morning. 90 Capsule 3 023 2023 Discontinued(R efill) Rosuvastatin Calcium 5 MG Oral Tablet (Crestor)Indicati ons:Other hyperlipidemia Take 1 Tablet by mouth at bedtime. 90 Tablet 3 023 2023 Discontinued(R efill) Amitriptyline HCl 25 MG Oral Tablet (Elavil)Indicatio ns:Chronic intractable headache, unspecified headache type Take 1 Tablet by mouth at bedtime. 90 Tablet 3 024 2023 Discontinued(M edication List Clean Up) Ondansetron 4 MG Oral Tablet Disintegrating (Zofran) Place 2 Tablets on tongue every 8 hours as needed for Nausea. dissolve on tongue. 15 Tablet 5 024 2023 Discontinued(R efill) Trudhesa 0.725 MG/ACT Nasal Aerosol Solution (Dihydroergotamin e Mesylate HFA) [place] once into each nostril. Can repeat once in 1 hour if needed. Max 2 doses a day, max 3 days a week. 8 mL 6 024 2023 Discontinued Celecoxib 200 MG Oral Capsule (CeleBREX)Indicat ions:Chronic bilateral low back pain without sciatica,Generali zed osteoarthritis TAKE 1 CAPSULE BY MOUTH ONCE DAILY IN THE MORNING AND 1 CAPSULE ONCE DAILY BEFORE BEDTIME 180 Capsule 1 024 2023 Discontinued(R efill) B-2-400 400 MG Oral Capsule (Riboflavin) Take 1 Capsule by mouth in the morning. 2023 Discontinued Mupirocin 2 % External Ointment (Bactroban) APPLY A SMALL AMOUNT TO THE AFFECTED AREA OF GREAT TOENAIL BY TOPICAL ROUTE 3 TIMES PER DAY FOR 2 WEEKS 024 2023 Discontinued Rizatriptan Benzoate 10 MG Oral Tablet Disintegrating DISSOLVE 1 TABLET IN MOUTH NEEDED FOR MIGRAINE AT ONSET OF HEADACHE, MAY REPEAT EVERY 2 HOURS, NO MORE THEN 2 TABLETS IN 24 HOURS. MAX 2 DAYS A WEEK 2023 Discontinued Topiramate 100 MG Oral Tablet (topAMAX) Take 1 Tablet by mouth in the morning. 90 Tablet 2 024 2023 Discontinued(R efill) documented as of this encounter (statuses as of 11/29/2024) Active Problems Problem Noted Date Diagnosed Date [...] as of this encounter (statuses as of 11/29/2024) Resolved Problems Problem Noted Date Diagnosed Date Resolved Date Ankylosing spondylitis of sacral region 12/20/2023 04/13/2024 Ankylosing spondylitis 04/22/202204/13 Dysplastic nevi 03/16/2022 03/13/2023 Inflammatory polyarthritis 03/27/2019 0 04/13/2024 documented as of this encounter (statuses as of 11/29/2024) Immunizations Name Administration Dates Next Due COVID-19 mRNA, LNP-s, No Pre serve, 2-Dose Series (Moderna) 09/10/2021,01/22/2021,12/26/2020 COVID-19 mRNA, LNP-s, No Pre serve, 2-Dose Series ([facility]) 01/18/2022 COVID-19, mRNA, LNP-s, PF, B ooster, 100mcg/0.5mg (Moderna) 03/05/2022 Covid-19, Mrna, Lnp-s, Pf, B ivalent, 30 Mcg, IM, 12 yrs and above ([facility]) 08/29/2022 PPD 10/02/2012 Pneumococcal Conjugate Vacc, 13 Valent (Prevnar) 03/16/2022 Seasonal Influenza Vac., MDV , IM, 0.5 mL (Fluzone) 07/30/2020,08/14/2019,08/20/2018,2016,09/21/2015,08/03/2014,11/18/2013,0 07/19/2012,08/27/2010 Seasonal Influenza Virus Vac cine, Unspecified Formulation 10/21/2021,11/16/2016 Seasonal Influenza, PF, 6 M & above, IM , (FluLaval or Fluzone) 10/26/2023 Seasonal Influenza, Quadriva lent, No Preserve, IM 11/16/2016 TDAP, Age 7 and older, IM (Adacel) [...] Orientation Straight 03/16/2022 8: 15 AM EDT documented as of this encounter Miscellaneous Notes * Telephone Encounter - Mireya Brady OSA - 09/03/2024 6:48 AM EDT Pt currently scheduled as video visit * Telephone Encounter - Imani Calderón OSA - 08/30/2024 2:15 PM EDT Neuroscience Phone Call Form- Requested Information from caller: Who is calling patient Provider patient is established with: Dr Wright What is the concern or issue they are having: wants to know if can flip appt for 10/09/24 to a video visit. Please advise How long has the issue been going on: . Any additional details to add: no Phone number for nurse to call back: [phone] Are forms needed? no Medication Refill? no Verify Pharmacy information is correct. Form to be used for established patients only (not new patients) Clinic has 24-48 hours to respond to caller. If caller is calling back before timeframe with any changes in condition/issues reported, update TEand re-route to appropriate pool If caller is calling back before timeframe- update TE- no need to re-route [facility] Neurology Pool- [facility] [place]- [phone] (All messages get sent to the [facility]) Neurology Pool Numbers- [facility] and [place] patients - follow normal process Ops req [facility] ([place])- [id number] Ops req [place] Neurology ([place]- [place] and [facility] clinics Only)- [id number] Neurosurgery Pool Numbers- [facility] patients- follow normal process Ops req Neurosurgery [facility] ([place])- [id number] Ops req Neurosurgery [facility] ([place] Only) [id number] documented in this encounter Plan of Treatment Upcoming Encounters Date Type Department Care Team (Latest Contact Info) Description 12/06/2024 1:15 PM EST Hospital Encounter OR [facility], Operating Room [facility] [address] [place] [phone] Tony Dillon MD [address] [place] [address] 12/06/2024 1:15 PM EST - 12/06/2024 2:39 PM EST Surgery OR [facility], Operating Room [facility] [address] [place] [phone] Tony Dillon MD [address] [place] [address] LAPAROSCOPIC CHOLECYSTECTOMY 12/18/2024 8:40 AM EST Office Visit Dermatology [address] [place] [address] Cari Marie PA-C [address] [place] [address] [place] [address] 12/23/2024 2:15 PM EST Office Visit General Surgery, [facility] [address] [facility] [place] [address] Tony Dillon MD 132 [place] [address] 02/04/2025 3:00 PM EDT Office Visit Gastroenterology, [facility] [address] [facility] [place] [address] Che Munoz CRNP [address] [place] [address] 02/12/2025 9:50 AM EDT Office Visit Rheumatology, [place] [address] [place] [address] Denise Mcdowell MD [address] [place] [address] 05/06/2025 2:30 PM EDT Office Visit Sleep Disorders [facility] [address] [place] [phone] Flakita Eaton CRNP [address] [place] [address] 06/03/2025 3:30 PM EDT Telemedicine Urology [address] [address] Jes Goddard MD [address] [place] [address] Scheduled Procedures Name Priority Associated Diagnoses Date/Ti [...] Depression Screening 11/22/2025 11/22/2024 GFR 11/28/2025 11/28/2024, 08/0 05/2024, 10/26/2023, Additional history exists Albumin/Creatinine Ratio 10/26/2026 10/26/2023, 04/2 06/2023 DTap/Tdap Vaccines (3 - Td or Tdap) 10/04/2027 10/04/2017, 01/16/2008 Diabetes Screening 11/28/2027 11/28/2024, 0 06/26/2024, 10/18/2023, Additional history exists Lipid Panel 11/28/2029 11/28/2024, 120 05/2023, 05/25/2022, Additional history exists Colonoscopy 02/19/2034 02/20/2024, 040 12/2023, 11/09/2012 Colorectal Cancer Screening 02/19/2034 Zoster [...] Not on filedocumented as of this encounter Care Teams Engagement Specialist Relationship Specialty Start Date End Date Buck Chawla MD 132 [facility] [place] [address] PCP - General Family Medicine 11/18/24 documented as of this encounter
--- OUTSIDE RECORDS SUMMARY | 2024-12-11 14:47 | External Medical Summary ---
Author Name Unknown Address Unknown Organization [id number]:[facility] - [address] [facility] [address] Laboratory Report Ordering Provider Test Date Status IBAN RODRIGUEZ 11/28/2024 07:19:47 Final Observation Date Value Abnormality Reference (Units ) Status Triglyceride 11/28/2024 07:19:47 79 <=174 ( mg/dL) Final Triglyceride Reference Range s (mg/dL):
<150 Acceptable
150-174 Borderline high
175-499 High
>=500 Very high Cholesterol 11/28/2024 07:19:47 229 Above high normal <200 (mg/dL) Final Total Cholesterol Reference Ranges (mg/dL):
<200 Desirable
200-239 Borderline high
>=240 High HDL 11/28/2024 07:19:47 65 >39 (mg/dL ) Final HDL Cholesterol Reference Ra nges (mg/dL):
>=60 High (Desirable)
<50 Low (Undesirable) For Females
<40 Low (Undesirable) For Males NON-HDL CHOLESTEROL 11/28/2024 07:19:47 164 Above high normal <=159 (mg/dL) Final Non-HDL Cholesterol Referenc e Range (mg/dL):
<100 Target level for high risk ASCVD patient
<130 Optimal for general population
130-159 Near optimal for general population
160-189 Borderline High
190-219 High
>=220 Very High LDL, (calculated) 11/28/2024 07:19:47 148 Above high n ormal <=129 (mg/dL) Final LDL Cholesterol Reference Ra nges (mg/dL):
<70 Target level for high risk ASCVD patient
<100 Optimal for general population
100-129 Near optimal for general population
130-159 Borderline high
160-189 High
>=190 Very high Performing Location [facility] - [address] [facility] [address]
--- NOTE | 2024-12-11 15:03 | Communication Note ---
Date of Service: December 11, 2024 I was called by the ER regarding Jesenia Olmedo on 12/11/24. He is s/p laparoscopic cholecystectomy as an outpatient [address] Dillon. He presents to the ER today with ~12hours upper abdominal pain and nausea. CT scan shows no evidence of bile leak with associated post op changes. No acute complications noted. WBC 13. LFTs within normal limits. I spoke with Dr. Dillon who was in the hospital operating today. He went to see and evaluate & examine the patient as well as his CT scan results and agreed no acute post op issues are noted. The patient is feeling better and tolerating clears without issues since his arrival. Dr. Dillon has okay'd the patient for discharge to home if okay from medical perspective. Please call if any further questions/concerns.
[2024-12-11] MEDS: PROMETHAZINE 12.5 MG/50.5 ML BAG IV STA (15:17)
--- NOTE | 2024-12-11 15:20 | History & Physical Report ---
Date of Service December 11, 2024 Assessment & Plan (1) Abdominal pain, acute, epigastric: (2) S/P laparoscopic cholecystectomy: Plan Mr. Jesenia Olmedo is a 59 yr old male with history of polyarthralgia, HTN, hyperlipidemia, migraines GERD, and chronic nausea who will be admitted to med/tele iso refractory nausea and abdominal as well as assessment of hematemesis. Hematemesis noted and given current presentation, chronic nsaid use, and not clearly related to post op, will keep NPO, start protonix and consult GI Last endoscopy reports as follows: Last endoscopy reviewed 2020: The esophagus was normal. A small hiatal hernia was present. The entire examined stomach was otherwise normal. Biopsies were taken with a cold forceps for Helicobacter pylori testing. Verification of patient identification for the specimen was done by the physician and nurse using the patient's name and medical record number. Estimated blood loss was minimal. The examined duodenum was normal. The cardia and gastric fundus were normal on retroflexion. 2016: Impression: - Z-line irregular, 38 cm from the incisors. Biopsied. - Small hiatus hernia. - Normal examined duodenum. Recommendation: - Await pathology results. - Follow an antireflux regimen. - Use Protonix (pantoprazole) 40 mg PO BID. - Return to primary care physician as previously scheduled. - Discharge patient to home. #Acute on chronic nausea #Hematemesis #s/p lap lay 12/[address] Dillon surgery evaluated in ED, low suspicion for any post-op complications per Comm note by Surgery episode of coffee ground emesis reported per patient this am after vomiting start PPI drip hold NSAIDS NPO Consult GI IVF Repeat HH this afternoon zofran prn trial of emend #Leukocytosis likely reactive, however given recent procedure and current condition will cover with cipro/flagyl and follow clinical course #Polyarthralgia #chronic low back pain: follows rheumatology Low suspicion for an inflammatory arthritis per rheumatology Hold celebrex and NSAIDs for now #Migraines Resume Topamax currently 100 mg daily when able Resume Cymbalta 60 mg, riboflavin 400 mg, magnesium oxide 100 mg On Emgality monthly monoclonal injection q month #HTN hold lisnopril for now given limited po intake DVT SCDs Full code admit med tele Admission and Anticipated Discharge Date Admission Date: Time spent evaluating patient, direct bedside care, chart review, placing orders, interpretation of diagnostic studies, discussion with consultants, patient, and family members, as well as other required patient management activities is 75minutes. History of Present Illness Chief Complaint: Nausea Primary Care Provider: Buck Chawla MD Mr. Jesenia Olmedo is a 59 yr old male with history of polyarthralgia, HTN, hyperlipidemia, migraines GERD, and chronic nausea presented to [facility] ED due to acute refractory nausea and abdominal pain. Patient with history of nausea for last 2 months under evaluation of GI and Surgery. It was suspected that patient was experiencing biliary dyskinesia and i s now s/p lap lay on 12/06. History mostly gathered by 2/2 pain and discomfort. Patient was reportedly doing well until late last evening when he noted a "bubble" like sensation then tight pain in his epigastrium. He started to vomit bile, but then noted this am he vomited "dark black fluid and blood." Patient states pain is ongoing and with waves of cramps/tightening and persistent nausea. Nothing given in ED has aided symptoms to date. Patient states he has been passing gas and stool appropriately. Gen surg evaluated and base upon imaging dose not suspect symptoms related to recent operation. In the ED, vitals were notable for BP of 150s, HR of 80-90s, and O2 sat of high 90s Imaging revealed changes c/w post operative instrumentation labs with WBC 13.37, stable hgb for now at 15.4, bun 32 EKG qtc 437, IRBBB ED interventions: analgseia, antiemetics (zofran x 1, compazine x 1, reglan x 1, famotidine/bendryl) Consultants: Gen Surg, GI Patient to be admitted to med/tele for further evaluation and management of refractory nausea Allergies Allergy/AdvReac Type Severity Reaction Status Date / Time No Known Allergies Allergy Verified 12/11/24 13:44 Home Medications Medication Instructions Recorded Confirmed Type lisinopril 10 mg tablet 10 mg PO QAM 07/30/18 12/11/24 History galcanezumab-gnlm 120 mg/mL 120 mg subcut MONTHLY 07/29/24 12/11/24 History subcutaneous pen injector (Emgality Pen) celecoxib 200 mg capsule 200 mg PO BID 12/11/24 12/11/24 History dihydroergotamine 0.5 mg/pump act. 1 spray intranasal UD PRN 12/11/24 12/11/24 History (4 mg/mL) nasal spray Prolonged headache attack duloxetine 30 mg capsule,delayed 30 mg PO QAM 12/11/24 12/11/24 History release iron,carbonyl 65 mg-vitamin C 125 1 tab PO Q OTHER DAY 12/11/24 12/11/24 History mg tablet,delayed release (Vitron-C) promethazine 25 mg tablet 25 mg PO Q6H PRN Nausea 12/11/24 12/11/24 History rabeprazole 20 mg tablet,delayed 20 mg PO DAILYBB 12/11/24 12/11/24 History release rosuvastatin 5 mg tablet 5 mg PO HS 12/11/24 12/11/24 History tadalafil 20 mg tablet 20 mg PO 2XWK 12/11/24 12/11/24 History topiramate 100 mg tablet 100 mg PO QAM 12/11/24 12/11/24 History Past Med/Surg History Problem List (Updated 12/11/24 @ 12:09 by Joseluis Canales MD) S/P laparoscopic cholecystectomy (Acute) Abdominal pain, acute, epigastric (Acute) Greater trochanteric bursitis of right hip Tendinitis of both rotator cuffs Myofascial pain Lumbar facet joint syndrome Encounter for pre-operative examination CMC arthritis History of radicular syndrome of lower extremity (Chronic) Chronic lumbar pain (Chronic) Sacroiliitis (Chronic) Medical History History of migraine History of COVID-19 Barretts syndrome Dyslipidemia HTN (hypertension) GERD (gastroesophageal reflux disease) Surgical History H/O thumb surgery History of esophagogastroduodenoscopy (EGD) History of colonoscopy History of arthroscopic knee surgery History of elbow surgery Family History Father Family history of diabetes mellitus Other No family history of adverse response to anesthesia Social History Smoking Status: Never smoker Second Hand Exposure: No; Do You Dip or Chew Tobacco: No; Hx Alcohol Use: Yes Alcohol type: beer Hx Substance Use: No Preferred Language: Citizen Of [place] Communication Ability: Effective 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 Head: (-) headache, (-) dizziness. Eye: (-) blurring of vision, (-) double vision, (-) redness. Ear: (-) hearing loss, (-) discharge, (-) vertigo Nose: (-) discharge, (-) bleeding, (-) congestion, (-) post nasal drip. Throat: (-) sore throat, (-) hoarseness of voice, (-) odynophagia. Cardiovascular: (-) chest pain, (-) palpitations, (-) syncope, (-) orthopnea, (- ) PND, (-) leg swelling. Respiratory: (-) shortness of breath, (-) cough, (-) wheezing, (-) hemoptysis. Neuro: (-) weakness in extremities, (-) numbness, (-) tingling, (-) tremor. Gastrointestinal: (++) belly pain, (-) belly distension, (++) nausea, (++) vomiting, (-) diarrhea, (-) constipation,(++) hematemesis, (-) hematochezia, (-) bowel incontinence Genitourinary: (-) hematuria, (-) dysuria, (-) polyuria, (-) hesitancy, (-) frequency, (-) urinary incontinence. Musculoskeletal: (-) myalgia, (-) arthralgia. Skin: (-) rashes. Endocrine: (-) heat/cold intolerance. Psychiatry: (-) depression, (-) hallucination. Physical Exam Physical Exam: GENERAL APPEARANCE: AxOx4,extremely uncomfortable gentleman, pain improved with legs bent HEENT: NC, AT. MMM. EOMI, clear conjunctiva, oropharynx clear. NECK: Supple without lymphadenopathy. No stiffness or restricted ROM. HEART: Normal rate and regular rhythm, normal S1/S1, no m/r/g LUNGS: CTAB, moving air well. No crackles or wheezes are heard. ABDOMEN: laparoscopic surgical incisions well approximately with out signs of superimposed infection, tenerness along epigastrium, bruising c/w recent procedure, BS++, no guarding on exam BACK: No CVAT, no obvious deformity. EXTREMITIES: Without cyanosis, clubbing or edema. NEUROLOGICAL: Grossly nonfocal. Alert and oriented, moving all 4 extremities. CN not formally tested but appear grossly intact. Results & Data Results & Data Vital Signs (Past 12 Hours) Vital Signs Temp Pulse Resp BP Pulse Ox O2 Del Method 12/11/24 14:15 80 21 97 12/11/24 13:00 66 18 156/94 H 97 12/11/24 12:30 73 21 141/88 H 97 12/11/24 12:18 67 12/11/24 12:00 73 22 131/81 96 12/11/24 11:30 71 24 149/92 H 98 12/11/24 11:00 66 20 149/93 H 96 12/11/24 10:56 73 12 96 Room Air 12/11/24 10:45 36.7 C 72 16 151/91 H 95 Room Air Laboratory Results Short CBC 12/11/24 Range/Units 10:42 WBC 13.37 H (4.8-10.8) K/ul Hgb 15.4 (14.0-18.0) g/dl Hct 43.2 (42.0-52.0) % Plt Count 190 (130-400) K/uL BMP 12/11/24 10:42 Sodium 139 Potassium 3.8 Chloride 108 H Carbon Dioxide 23 BUN 32 H Creatinine 0.98 Glucose 138 H Calcium 9.4 Liver Function 12/11/24 Range/Units 10:42 Total Bilirubin 0.6 (0.2-1.0) mg/dl AST 23 (13-39) U/L ALT 24 (7-52) U/L Alkaline Phosphatase 56 (34-104) U/L Albumin 4.0 (3.4-5.0) gm/dl Diagnostic Findings Abdomen/Pelvis CT 12/11/24 10:54 CT abd pelvis IV con only CLINICAL HISTORY: diffuse abd pain, gallbladder surgery 5 days ago TECHNIQUE: Helical axial images of the abdomen and pelvis were obtained and displayed. Automated dose lowering techniques and/or adjustment according to patient size were utilized for this exam. This exam was performed with intravenous contrast. CT DOSE: 1931.67 mGy.cm COMPARISON: Comparison is made to CT abdomen pelvis 11/28/2008 FINDINGS: Lower chest: Bibasilar atelectasis versus scarring is seen. Liver: Unremarkable. No focal lesions are seen. Gallbladder and biliary tree: Patient is status post cholecystectomy. No intra- or extrahepatic biliary ductal dilation. Pancreas: Unremarkable, no focal lesions. Spleen: Unremarkable. Adrenals: Unremarkable. Kidneys and ureters: Subcentimeter hypodensities are too small to characterize. Bladder: Unremarkable. Reproductive organs: Unremarkable. Bowel: The appendix is normal. A moderate hiatal hernia is seen. Lymph nodes Retroperitoneal: Unremarkable. Pelvic: Unremarkable. Mesenteric: Unremarkable. Peritoneum: Fat stranding and a small amount of free fluid is seen in the gallbladder fossa. No well-defined fluid collection is seen. Vessels: Minimal atherosclerotic disease is noted. Abdominal wall: Fat stranding seen near the umbilicus compatible with port insertion. Bones: Degenerative changes in the visualized spine. IMPRESSION: No evidence of abscess or biliary leak in this patient status post recent cholecystectomy. There is fat stranding in the right upper quadrant compatible with recent instrumentation, as well as abdominal wall fluid. ACT 112: Negative or not required by law. Electronically signed by: Jacobo Mcdonough M.D. 12/11/2024 12:06 PM Medications Administered Home Medications Medication Instructions Recorded Confirmed Last Taken lisinopril 10 mg tablet 10 mg PO QAM 07/30/18 12/11/24 12/10/24 galcanezumab-gnlm 120 mg/mL 120 mg subcut MONTHLY 07/29/24 12/11/24 12/07/24 subcutaneous pen injector (Emgality Pen) celecoxib 200 mg capsule 200 mg PO BID 12/11/24 12/11/24 12/10/24 dihydroergotamine 0.5 mg/pump act. 1 spray intranasal UD PRN 12/11/24 12/11/24 Unknown (4 mg/mL) nasal spray Prolonged headache attack duloxetine 30 mg capsule,delayed 30 mg PO QAM 12/11/24 12/11/24 12/10/24 release iron,carbonyl 65 mg-vitamin C 125 1 tab PO Q OTHER DAY 12/11/24 12/11/24 12/10/24 mg tablet,delayed release (Vitron-C) promethazine 25 mg tablet 25 mg PO Q6H PRN Nausea 12/11/24 12/11/24 Unknown rabeprazole 20 mg tablet,delayed 20 mg PO DAILYBB 12/11/24 12/11/24 12/10/24 release rosuvastatin 5 mg tablet 5 mg PO HS 12/11/24 12/11/24 12/10/24 tadalafil 20 mg tablet 20 mg PO 2XWK 12/11/24 12/11/24 12/10/24 topiramate 100 mg tablet 100 mg PO QAM 12/11/24 12/11/24 12/10/24 Active Medications Generic Name Dose Route Start Last Admin Trade Name Freq PRN Reason Stop Dose Admin Hydromorphone HCl 0.5 mg 12/11/24 11:12 12/11/24 14:30 Hydromorphone Inj 0.5 Mg/0.5 Ml Syr IV 12/25/24 11:11 0.5 mg Q15M PRN Administration Pain Sodium Chloride 1,000 mls @ 125 mls/hr 12/11/24 15:15 12/11/24 15:25 Nss IV 12/12/24 07:14 125 mls/hr .Q8H OMKAR Administration Metronidazole 500 mg in 100 mls @ 100 mls/hr 12/11/24 15:41 12/11/24 15:50 Flagyl IV 12/11/24 16:40 100 mls/hr NOW STA Administration
[2024-12-11] MEDS: MoRPHine SULFATE 10 MG/ML CARP/VIAL IV STA (15:22)
[2024-12-11] MEDS: SODIUM CHLORIDE 0.9% 1,000 ML IV SCH (15:25)
[2024-12-11] MEDS ORDERED: PANTOPRAZOLE BOLUS/DRIP IV STA (15:30)
[2024-12-11] MEDS ORDERED: SODIUM CHLORIDE 0.9% 1,000 ML IV SCH (15:45)
[2024-12-11] MEDS: metroNIDAZOLE 500 MG/100 ML BAG IV STA (15:50)
[2024-12-11 16:26] LABS: Hematocrit (blood only) 43.2 % (42.0-52.0); Hemoglobin 14.8 g/dl (14.0-18.0)
[2024-12-11] MEDS: FOSAPREPITANT DIMEGLUMINE 150 MG in SODIUM CHLORIDE 0.9% 145 ML IV ONE ×2 (16:34→16:38)
[2024-12-11] MEDS: PANTOprazole 80 MG in DEXTROSE 5% 100 ML IV ONE (16:55)
[2024-12-11] MEDS: ACETAMINOPHEN 1,000 MG/100 ML VIAL IV SCH (17:26)
[2024-12-11] MEDS: PANTOprazole 40 MG in DEXTROSE 5% 100 ML IV SCH (17:29)
--- NOTE | 2024-12-11 17:36 | Gastrointestinal Consultation ---
Date of Consultation December 11, 2024 Assessment & Plan (1) S/P laparoscopic cholecystectomy: 59 year old male w/ history of polyarthralgia, HTN, hyperlipidemia, migraines, GERD, and chronic nausea, s/p lap CCY 12/06 admitted to the ED w/ nausea and abdominal pain w/ report of coffee ground appearing emesis x 1 episode follow bouts of bilious emesis. Conservative meausure as he is hemodynamically stable w/ PERSONNEL SECURITY SPECIALIST 152/100 w/ HGB 14.8 Trend H&H Monitor GI output Transfuse PRN per primary service IV PPI bolus and drip Reviewed CT, LFTs normal no current suspicion for bile leak If no improvement, consider HIDA scan I spent a total of 60 minutes on the date of service in review of patient's record, and previously obtained information in person and appropriate medical visit, discussion and education of plan, with patient and/or caregiver, placing orders for tests/referral/procedures as medically necessary and documentation of pertinent clinical information in patient's medical records for their visit today. (2) Abdominal pain, acute, epigastric: Supervising Physician Co-Signing Physician Notes Above notes and case discussed with nurse practitioner. Patient was seen in the emergency room. He had been sedated though was awake answering questions. was at the bedside. Apparently cholecystectomy for 5 days ago. States he thought he was doing reasonably well until started to develop significant abdominal pressure which she describes as a gas pocket extending into the chest area did not radiate into the back symptoms persisted for an hour or so and then resolved with subsequent reoccurrence. He had multiple bilious emesis followed by coffee-ground emesis. Patient's cholecystectomy was for an abnormal HIDA scan. Indication for testing was persistent and chronic nausea. He denies significant and abdominal pain like his current presentation predating the cholecystectomy. He has a leukocytosis which may be stress. His hemoglobin is okay. BUN is elevated to creatinine which could be prerenal from vomiting or potentially blood in the GI tract. He has not had keegan melena at this time. He is on a PPI drip. Patient has multiple scars over the abdomen. Bowel sounds are present but decreased. There is fullness in the right upper quadrant compared to the remainder of the abdomen no focal tenderness no guarding no rebound. CT report reviewed. IV contrast only no oral contra. small bit of fluid in the gallbladder fossa which would be expected postcholecystectomy no bile peritonitis. No biliary dilatation. Liver function test are normal no free air. Labs show no acidosis. Mesentery reported as normal on CT scan Just get a check some plain x-rays of the abdomen in regards to the asymmetry in the abdomen and what appears to be a abnormal gas pocket on CT in this area. Not entirely clear what the patient's issue is. Certainly the nausea predated cholecystectomy just be a reoccurrence of this though the pain is new. I believe the hematemesis is secondary to his frequent emesis and Archana-Ochoa in nature. Patient does take Celebrex so potential for peptic ulcer disease needs to be considered. I would keep NPO. Pending on clinical situation and the abdominal series may repeat CT scan of the abdomen tomorrow with oral contrast or earlier if the clinical situation dictates History of Present Illness Reason for Consultation: hematemesis Requesting Physician: Whitney Sanderson MD Attending Physician: Whitney Sanderson MD History of Present Illness 59 year old male with history of polyarthralgia, HTN, hyperlipidemia, migraines, GERD, and chronic nausea, s/p lap CCY 12/06 admitted to the ED w/ nausea and abdominal pain - GI asked to evaluate for hematemesis. Pt was seen and evaluated, chart reviewed. at bedside. Endorses chronic abd pain/nausea. Marion well for 2 days s/p CCY but pain and nausea returned last evening. Suggests he had about 2-3 bouts of nonbloody emesis then a single isolated event with coffee ground appearing emesis. No hematemesis. Stools are brown. Denies black or bloody stools. Denies diarrhea/constipation. H&H 14.8/43.2 BUN 32 CTAP 2024: Moderate HH. No evidence of abscess or biliary leak in this patient status post recent cholecystectomy. There is fat stranding in the right upper quadrant compatible with recent instrumentation, as well as abdominal wall fluid. HIDA 2023: Patent cystic and common bile ducts. 2. Gallbladder ejection fraction is elevated at 93%. In combination with right upper quadrant discomfort with CCK administration, this may suggest a hyperkinetic gallbladder. EGD 2020: Normal esophagus. - Small hiatal hernia. - Normal stomach. Biopsied. - Normal examined duodenum. Allergies Allergy/AdvReac Type Severity Reaction Status Date / Time No Known Allergies Allergy Verified 12/11/24 13:44 Home Medications Medication Instructions Recorded Confirmed Type lisinopril 10 mg tablet 10 mg PO QAM 07/30/18 12/11/24 History galcanezumab-gnlm 120 mg/mL 120 mg subcut MONTHLY 07/29/24 12/11/24 History subcutaneous pen injector (Emgality Pen) celecoxib 200 mg capsule 200 mg PO BID 12/11/24 12/11/24 History dihydroergotamine 0.5 mg/pump act. 1 spray intranasal UD PRN 12/11/24 12/11/24 History (4 mg/mL) nasal spray Prolonged headache attack duloxetine 30 mg capsule,delayed 30 mg PO QAM 12/11/24 12/11/24 History release iron,carbonyl 65 mg-vitamin C 125 1 tab PO Q OTHER DAY 12/11/24 12/11/24 History mg tablet,delayed release (Vitron-C) promethazine 25 mg tablet 25 mg PO Q6H PRN Nausea 12/11/24 12/11/24 History rabeprazole 20 mg tablet,delayed 20 mg PO DAILYBB 12/11/24 12/11/24 History release rosuvastatin 5 mg tablet 5 mg PO HS 12/11/24 12/11/24 History tadalafil 20 mg tablet 20 mg PO 2XWK 12/11/24 12/11/24 History topiramate 100 mg tablet 100 mg PO QAM 12/11/24 12/11/24 History Patient History Medical History History of migraine History of COVID-19 Barretts syndrome Dyslipidemia HTN (hypertension) GERD (gastroesophageal reflux disease) Surgical History H/O thumb surgery History of esophagogastroduodenoscopy (EGD) History of colonoscopy History of arthroscopic knee surgery History of elbow surgery Family History Father Family history of diabetes mellitus Other No family history of adverse response to anesthesia Social History Smoking Status: Never smoker Second Hand Exposure: No; Do You Dip or Chew Tobacco: No; Hx Alcohol Use: Yes Alcohol type: beer Hx Substance Use: No Preferred Language: [place] Communication Ability: Effective Plate Mill Mill Hand Required: No Beliefs That Will Affect Care: None Current Living Situation: Spouse and Family Feels Safe at Home: Yes Assistive Devices: None Review of Systems Review of Systems: All other findings negative except as noted in HPI. Physical Exam Constitutional: WD/WN, vitals as above Respiratory: normal respiratory effort, lungs clear to auscultation Cardiovascular: Rate/Rhythm: regular rate and regular rhythm Gastrointestinal (Abdomen): normal bowel sounds, soft, nontender, no hepatosplenomegaly Skin: no rashes, warm and dry Results & Data Vital Signs (Past 12 Hours) Vital Signs Temp Pulse Pulse Resp BP BP Pulse Ox 12/11/24 16:03 82 12/11/24 15:30 80 16 152/100 H 97 12/11/24 14:15 80 21 97 12/11/24 13:00 66 18 156/94 H 97 12/11/24 12:30 73 21 141/88 H 97 12/11/24 12:18 67 12/11/24 12:00 73 22 131/81 96 12/11/24 11:30 71 24 149/92 H 98 12/11/24 11:00 66 20 149/93 H 96 12/11/24 10:56 73 12 96 12/11/24 10:45 98.1 F 72 16 151/91 H 95 O2 Del Method 12/11/24 16:03 12/11/24 15:30 Room Air 12/11/24 14:15 12/11/24 13:00 12/11/24 12:30 12/11/24 12:18 12/11/24 12:00 12/11/24 11:30 12/11/24 11:00 12/11/24 10:56 Room Air 12/11/24 10:45 Room Air PG Care Time/CCT Total # of Minutes Spent Total Time Spent with Patient: Total time spent is greater than 50% in coordination of care (as documented) at patient's floor/unit and/or counseling patient: Coding Level of Care Code 82687 IN/OBS CONSULT LVL 4,60M Diagnoses S/P laparoscopic cholecystectomy Z90.49 Abdominal pain, acute, epigastric R10.13
[2024-12-11] MEDS: CIPROFLOXACIN / D5W 400 MG/200 ML BAG IV STA (17:59)
[2024-12-11] MEDS ORDERED: ONDANSETRON INJ 2 MG/ML 2 ML VIAL IV PRN (19:07)
--- NOTE | 2024-12-11 20:39 | Surgery Consultation ---
<Statement entered by Regina Santamaria DO - 12/12/24 10:26> I have discussed this patient with the surgical PA and I agree with this plan. Date of Consultation December 11, 2024 Assessment & Plan (1) S/P laparoscopic cholecystectomy: Patient has been admitted on the hospitalist service. As the patient did have some coffee-ground emesis the GI consultation is obtained: The patient has been placed on Protonix bolus and drip. Serial hemoglobin hematocrits are being followed Serial LFTs will be followed For the present time clinical monitors to be employed with further recommendations to follow but at the present time they are not planning on performing any endoscopy. Has been recommended that patient fails to show clinical improvement consideration be given to performing a HIDA scan to assess for biliary leak although this does not appear to be present at this time From surgical perspective we recommend the following: Provide analgesics and antiemetics Would recommend hydrating IV fluids due to his nausea and lack of oral intake At the present time the patient does not appear to have a surgical abdomen or any findings on laboratories or imaging thus far that would necessitate surgical intervention Will continue with the plan as outlined above by GI further recommendations to follow At the present time the patient is nontoxic-appearing. His abdomen is soft and nonrigid and he is normotensive without tachycardia or fever. History of Present Illness Reason for Consultation: Abdominal pain status postcholecystectomy Attending Physician: Whitney Sanderson MD History of Present Illness This is a 59-year-old male who recently underwent a laparoscopic cholecystectomy by Dr. Dillon of [facility] surgery. The surgery was performed approximately 5 days ago and he notes that he was discharged the day of his surgery. The patient reports he was doing well initially following his surgery but over the past 24 hours he developed some generalized abdominal pain with some nausea and vomiting. The patient did note some blood-tinged/black emesis followed by bilious emesis. He notes that the pain is nonradiating without any other modifying factors. He says he was running low-grade fever of 99. He says he was initially eating well following his surgery but was unable to really eat anything today. He notes that his bowels have moved since his surgery with his most recent bowel movement yesterday but has not a bowel movement today. He notes he is passing a small amount of flatus. Of note, the patient notes that he was having some generalized abdominal pain prior to his cholecystectomy. He also notes that he was having nausea issues prior to his cholecystectomy as well. He does report a history of a hiatal hernia but he says that this is medicated with antireflux medications and is well-controlled with best of his knowledge. Patient did present to the emergency department where he had a CT scan of the abdomen pelvis. This showed the patient had no evidence of an abscess or biliary leak status postcholecystectomy. There is no intra or extrahepatic biliary ductal dilatation. Labs included CBC with a white blood cell count was elevated 13.3. Hemoglobin and hematocrit as well as the platelet count were normal. Chemistry profile showed sodium and potassium are normal. His BUN was elevated at 32 with a normal creatinine. There is no elevation of patient's LFTs or lipase. At the time of my visit with the patient he was resting comfortably bed and did not appear to be in any distress. Allergies Allergy/AdvReac Type Severity Reaction Status Date / Time No Known Allergies Allergy Verified 12/11/24 13:44 Home Medications Medication Instructions Recorded Confirmed Type lisinopril 10 mg tablet 10 mg PO QAM 07/30/18 12/11/24 History galcanezumab-gnlm 120 mg/mL 120 mg subcut MONTHLY 07/29/24 12/11/24 History subcutaneous pen injector (Emgality Pen) celecoxib 200 mg capsule 200 mg PO BID 12/11/24 12/11/24 History dihydroergotamine 0.5 mg/pump act. 1 spray intranasal UD PRN 12/11/24 12/11/24 History (4 mg/mL) nasal spray Prolonged headache attack duloxetine 30 mg capsule,delayed 30 mg PO QAM 12/11/24 12/11/24 History release iron,carbonyl 65 mg-vitamin C 125 1 tab PO Q OTHER DAY 12/11/24 12/11/24 History mg tablet,delayed release (Vitron-C) promethazine 25 mg tablet 25 mg PO Q6H PRN Nausea 12/11/24 12/11/24 History rabeprazole 20 mg tablet,delayed 20 mg PO DAILYBB 12/11/24 12/11/24 History release rosuvastatin 5 mg tablet 5 mg PO HS 12/11/24 12/11/24 History tadalafil 20 mg tablet 20 mg PO 2XWK 12/11/24 12/11/24 History topiramate 100 mg tablet 100 mg PO QAM 12/11/24 12/11/24 History Patient History Medical History History of migraine History of COVID-19 01/2022, not hospitalized, sore throat, fatigue, home test>resolved. Barretts syndrome pt denies, never tested positive Dyslipidemia HTN (hypertension) GERD (gastroesophageal reflux disease) Surgical History H/O thumb surgery bilateral thumb surgery History of esophagogastroduodenoscopy (EGD) History of colonoscopy History of arthroscopic knee surgery right History of elbow surgery RT. Family History Father Family history of diabetes mellitus Other No family history of adverse response to anesthesia Social History Smoking Status: Never smoker Second Hand Exposure: No; Do You Dip or Chew Tobacco: No; Hx Alcohol Use: Yes Alcohol type: beer Hx Substance Use: No Preferred Language: Amharic Communication Ability: Effective Wood Inspector Required: No Beliefs That Will Affect Care: None Current Living Situation: Spouse and Family Feels Safe at Home: Yes Assistive Devices: None Review of Systems Review of Systems: All systems reviewed & are unremarkable except as noted in HPI & below Physical Exam Constitutional: WD/WN, vitals as above Eyes: No scleral jaundice noted ENMT: Ears: no hearing impairment and no external ear abnormality Sublingual jaundice is absent Neck: trachea midline Respiratory: normal respiratory effort; no respiratory distress and no labored breathing Cardiovascular: Rate/Rhythm: regular rate and regular rhythm Vessels: dorsalis pedis pulses present and radial pulses present Gastrointestinal (Abdomen): Abdomen is soft without distention or rigidity. There is no rebound tenderness or guarding. Patient had 4 laparoscopic incisions that all appeared well- healed, clean, dry, intact without signs of infection Musculoskeletal: No calf tenderness Skin: no jaundice Neurologic: moves all extremities Psychiatric: A+Ox3, euthymic affect Results & Data Vital Signs (Past 12 Hours) Vital Signs Temp Pulse Pulse Resp BP BP Pulse Ox 12/11/24 19:12 76 18 97 12/11/24 19:12 12/11/24 17:51 80 16 136/91 95 12/11/24 16:03 82 12/11/24 15:58 82 12/11/24 15:30 80 16 152/100 H 97 12/11/24 14:15 80 21 97 12/11/24 13:00 66 18 156/94 H 97 12/11/24 12:30 73 21 141/88 H 97 12/11/24 12:18 67 12/11/24 12:00 73 22 131/81 96 12/11/24 11:30 71 24 149/92 H 98 12/11/24 11:00 66 20 149/93 H 96 12/11/24 10:56 73 12 96 12/11/24 10:45 36.7 C 72 16 151/91 H 95 Pulse Ox O2 Del Method O2 Del Method 12/11/24 19:12 Room Air 12/11/24 19:12 97 Room Air 12/11/24 17:51 Room Air 12/11/24 16:03 12/11/24 15:58 12/11/24 15:30 Room Air 12/11/24 14:15 12/11/24 13:00 12/11/24 12:30 12/11/24 12:18 12/11/24 12:00 12/11/24 11:30 12/11/24 11:00 12/11/24 10:56 Room Air 12/11/24 10:45 Room Air PG Care Time/CCT Total # of Minutes Spent Total Time Spent with Patient: Total time spent is greater than 50% in coordination of care (as documented) at patient's floor/unit and/or counseling patient: Coding Level of Care Code None Diagnoses S/P laparoscopic cholecystectomy Z90.49
[2024-12-11] MEDS: PROCHLORPERAZINE 10 MG in SYRINGE 8 ML IV PRN (20:40)
[2024-12-11] MEDS: HYDROmorphone INJ 2 MG/ML SYR/VIAL IV PRN (20:46)
--- NOTE | 2024-12-11 20:50 | XRay Report ---
Exam(s): XR ABDOMEN, 2 views EXAM: XR Abdomen, 1 View and XR Chest, 1 View CLINICAL HISTORY: Reason for exam: Possible bowel obstruction, please call result. TECHNIQUE: Frontal view of the chest and abdomen/pelvis. COMPARISON: No relevant prior studies available. FINDINGS: Lungs: Unremarkable. No consolidation. Pleural space: Unremarkable. No pneumothorax. Heart: Unremarkable. No cardiomegaly. Mediastinum: Unremarkable. Normal mediastinal contour. Intraperitoneal space: No free air. Gastrointestinal tract: Unremarkable. No dilation. Surgical clips overlie the right upper quadrant. Organs: Contrast within the urinary bladder from prior administration. Bones/joints: Unremarkable. No acute fracture. IMPRESSION: No acute findings in the chest or abdomen/pelvis. Electronically signed by: James Jorgensen MD 12/11/24 20:50 PM
[2024-12-11] MEDS ORDERED: ACETAMINOPHEN 325 MG TAB PO PRN (21:59)
[2024-12-11] MEDS: KETOROLAC TROMETHAMINE 15 MG/ML VIAL IV ONE (22:48)
[2024-12-12] MEDS: metroNIDAZOLE 500 MG/100 ML BAG IV SCH (00:43)
[2024-12-12] MEDS: oxyCODONE HCL IR 5 MG TAB (IMMEDIATE RELEASE) PO PRN (04:50)
[2024-12-12] MEDS: CIPROFLOXACIN / D5W 400 MG/200 ML BAG IV SCH (05:53)
[2024-12-12 07:45] LABS: Appearance Urine Clear (Clear); Bacteria Urine Automated None Seen (None Seen); Bilirubin Urine 1+ (Negative); Blood Urine Negative (Negative); Cast Urine Automated 0-2 /lpf (0-2); Color Urine Dark Yellow; Epithelial Cell Urine Auto 0-2 /hpf (0-2); Glucose Urine UA Negative (Negative); Ketones Urine 1+ (Negative); Leukocyte Esterase Urine Trace (Negative); Mucus Urine Present (None Prsent); Nitrite Urine Positive (Negative); Protein Urine 1+ (Negative); RBC Urine Automated 0-2 /hpf (0-2); Specific Gravity Urine 1.043 (1.000-1.030); Urobilinogen Urine Positive (Negative); WBC Urine Automated 0-5 /hpf (0-5); pH Urine 5.5 (4.5-7.5)
[2024-12-12 07:51] LABS: Hematocrit (blood only) 39.3 % (42.0-52.0); Hemoglobin 13.6 g/dl (14.0-18.0); Mean Corpuscular Hgb Conc 34.6 g/dL (32.0-36.0); Mean Corpuscular Volume 86.8 fL (80.0-100.0); Platelet Count 134 K/uL (130-400); RDW Coefficient of Variation 13.2 % (11.5-14.5); RDW Standard Deviation 41.6 fL (36.4-46.3); Red Blood Count 4.53 M/uL (4.70-6.10); White Blood Count 7.29 K/ul (4.8-10.8)
--- NOTE | 2024-12-12 08:01 | Hospitalist Progress Note ---
Date of Service December 12, 2024 Assessment & Plan (1) Abdominal pain, acute, epigastric: (2) S/P laparoscopic cholecystectomy: Plan per admitting service notes with addendum: Mr. Jesenia Olmedo is a 59 yr old male with history of polyarthralgia, HTN, hyperlipidemia, migraines GERD, and chronic nausea who will be admitted to med/tele iso refractory nausea and abdominal as well as assessment of hematemesis. Hematemesis noted and given current presentation, chronic nsaid use, and not clearly related to post op, will keep NPO, start protonix and consult GI Last endoscopy reports as follows: Last endoscopy reviewed 2020: The esophagus was normal. A small hiatal hernia was present. The entire examined stomach was otherwise normal. Biopsies were taken with a cold forceps for Helicobacter pylori testing. Verification of patient identification for the specimen was done by the physician and nurse using the patient's name and medical record number. Estimated blood loss was minimal. The examined duodenum was normal. The cardia and gastric fundus were normal on retroflexion. 2016: Impression: - Z-line irregular, 38 cm from the incisors. Biopsied. - Small hiatus hernia. - Normal examined duodenum. Recommendation: - Await pathology results. - Follow an antireflux regimen. - Use Protonix (pantoprazole) 40 mg PO BID. - Return to primary care physician as previously scheduled. - Discharge patient to home. #Acute on chronic nausea #Hematemesis #s/p lap lay 12/[address] Dillon surgery evaluated in ED, low suspicion for any post-op complications per Comm note by Surgery episode of coffee ground emesis reported per patient this am after vomiting start PPI drip hold NSAIDS NPO Consult GI IVF Repeat HH this afternoon zofran prn trial of emend 12/12 still having abd pain, nausea repeat CT abd/pelvis: 1. Trace pleural effusions with prominent right basilar consolidation which is new/progressed from yesterday's exam suspicious for aspiration pneumonitis. 2. Large hiatal hernia. 3. Evidence of recent laparoscopic cholecystectomy. There is no postoperative fluid collection, however small amount of nonspecific free pelvic fluid has increased from yesterday's study. 4. No bowel obstruction or bowel wall thickening. 5. Indeterminate enhancing linear focus within the prostate apex. Correlate with PSA level. GI notified, possible EGD tomorrow monitor closely #Leukocytosis likely reactive, however given recent procedure and current condition will cover with cipro/flagyl and follow clinical course 12/12 possible aspiration pneumonia Cipro + Flagyl changed to Zosyn IV #abnormal UA will need repeat UA as outpatient #Polyarthralgia #chronic low back pain: follows rheumatology Low suspicion for an inflammatory arthritis per rheumatology Hold celebrex and NSAIDs for now #Migraines Resume Topamax currently 100 mg daily when able Resume Cymbalta 60 mg, riboflavin 400 mg, magnesium oxide 100 mg On Emgality monthly monoclonal injection q month #HTN hold lisnopril for now given limited po intake DVT SCDs Full code Admission and Anticipated Discharge Date Admission Date: December 11, 2024 Subjective ff up for nausea, abdominal pain s/p cholecystitis, etc seen resting in bed, not in distress states he still has lower abdominal pain, nausea today no BM, minimal flatus (+) chills no chest pain, dyspnea, palpitations, dizziness no other symptoms Review of Systems Review of Systems: all noted and negative except for above Physical Exam Physical Exam: General- oriented x 3, not in distress, speaks in sentences with no effort or accessory muscle use Eyes- anicteric Neck- no JVD Lungs- clear breath sounds bilaterally, no rales/wheezes Heart- normal rate, regular rhythm; no murmurs Abdomen- normal bowel sounds, nondistended, soft, mild lower abdominal tenderness Extremities- no pretibial edema, no calf tenderness Neuro- alert, oriented x 3; no gross focal neurologic deficits Skin- warm & dry Results & Data Results & Data Vital Signs (Past 12 Hours) Vital Signs Temp Pulse Pulse Pulse Resp BP BP 12/12/24 07:23 37.7 C H 90 18 105/68 12/12/24 07:00 88 12/12/24 02:56 36.8 C 72 16 110/72 12/11/24 21:55 79 12/11/24 21:31 88 12/11/24 21:30 12/11/24 21:30 36.7 C 78 18 161/90 H 12/11/24 20:59 85 14 154/97 H Pulse Ox O2 Del Method 12/12/24 07:23 94 Room Air 12/12/24 07:00 12/12/24 02:56 93 Room Air 12/11/24 21:55 12/11/24 21:31 12/11/24 21:30 Room Air 12/11/24 21:30 97 Room Air 12/11/24 20:59 95 Room Air all noted and reviewed including below
[2024-12-12 08:05] LABS: Albumin Globulin Ratio 1.3 (0.9-2); Albumin Level 2.9 gm/dl (3.4-5.0); BUN Creatinine Ratio 36.8 (10-20); Bilirubin,Total 0.9 mg/dl (0.2-1.0); Calcium 8.3 mg/dl (8.6-10.3); Creatinine Clr Calc Pharmacy 101.2 ml/min; Globulin 2.2 gm/dl (2.5-4.0); Magnesium 1.7 mg/dl (1.7-2.4); Phosphorus 2.8 mg/dl (2.5-4.9); Potassium 3.5 mmol/L (3.5-5.1); Total Protein 5.1 gm/dl (6.0-8.3)
--- NOTE | 2024-12-12 09:41 | Gastroenterology Progress Note ---
Date of Service December 12, 2024 Assessment & Plan (1) S/P laparoscopic cholecystectomy: Plan: 59 year old male w/ history of polyarthralgia, HTN, hyperlipidemia, migraines, GERD, and chronic nausea, s/p lap CCY 12/06 admitted to the ED w/ nausea and abdominal pain w/ report of coffee ground appearing emesis x 1 episode follow bouts of bilious emesis. No further emesis, H&H stable, w/o report of black or bloody BMs. He has ongoing abd pain and is febrile this AM w/ temp of 99.9. Repeat CTAP w/ IV and oral contrast Trend H&H Monitor GI output Transfuse PRN per primary service IV PPI BID x 48 hours then PO PPI twice daily OP EGD can be arranged w/ his established GI team I spent a total of 45 minutes on the date of service in review of patient's record, and previously obtained information in person and appropriate medical visit, discussion and education of plan, with patient and/or caregiver, placing orders for tests/referral/procedures as medically necessary and documentation of pertinent clinical information in patient's medical records for their visit today. (2) Abdominal pain, acute, epigastric: Admission and Anticipated Discharge Date Admission Date: December 11, 2024 Supervising Physician Co-Signing Physician Notes Patient symptoms were nausea vomiting pressure bubble sensation in the upper chest area. Follow-up CT suggest a large hiatal hernia. Went to radiology and directly reviewed this. About a third of the stomach in the chest. There is no large paraesophageal component. There is no obvious volvulus. Patient's white count is normalized. He does not appear to have pneumonia which could be aspiration in nature. He was sleeping when visited. Arouses to voice. It is possible all the symptoms are related to this hernia. Will need direct visualization. There is no acidosis evidence of volvulus at this time. Plan EGD tomorrow Subjective Pt was seen and evaluated, chart reviewed. Notes fever/chills overnight and persistent to thie AM. Abd pain is better controlled but still present. Ongoing nausea. No vomiting. Denies black or bloody stools. No fever, chills, CP, SOB. Review of Systems Review of Systems: All other findings negative except as noted in HPI. Physical Exam Constitutional: WD/WN, vitals as above Respiratory: normal respiratory effort, lungs clear to auscultation Cardiovascular: Rate/Rhythm: regular rate and regular rhythm Gastrointestinal (Abdomen): Inspection/Auscultation: abdomen normal to inspection and normal bowel sounds Percussion/Palpation: + abdomen tender (generalized) and abdomen soft Skin: no rashes, warm and dry Results & Data Results & Data Vital Signs (Past 12 Hours) Vital Signs Temp Pulse Pulse Resp BP BP Pulse Ox 12/12/24 07:23 99.9 F H 90 18 105/68 94 12/12/24 07:00 88 12/12/24 02:56 98.2 F 72 16 110/72 93 12/11/24 21:55 79 O2 Del Method 12/12/24 07:23 Room Air 12/12/24 07:00 12/12/24 02:56 Room Air 12/11/24 21:55 PG Care Time/CCT Total # of Minutes Spent Total Time Spent with Patient: Total time spent is greater than 50% in coordination of care (as documented) at patient's floor/unit and/or counseling patient: Coding Level of Care Code 29727 SUB INP/OBS CARE 2/35MIN Diagnoses S/P laparoscopic cholecystectomy Z90.49 Abdominal pain, acute, epigastric R10.13
[2024-12-12] MEDS: SODIUM CHLORIDE 0.9% 500 ML IV ONE (10:08)
[2024-12-12] MEDS: SODIUM CHLORIDE 0.9% 1,000 ML IV SCH (11:17)
--- NOTE | 2024-12-12 11:50 | Surgery Progress Note ---
Date of Service December 12, 2024 Assessment & Plan (1) S/P laparoscopic cholecystectomy: (2) Abdominal pain, acute, epigastric: Plan Pt with recent h/o cholecystectomy with Dr. Dillon less than 1 week ago developed upper abdominal/chest pain followed by vomiting which evolved into coffee ground emesis. GI is on board GI recommends follow up imaging Dr. Dillon reportedly saw the patient in the ED and discussed no surgical intervention or issue Surgery will sign off at this time, f/u GI recommendations and call or secure chat if other questions Admission and Anticipated Discharge Date Admission Date: December 11, 2024 Subjective pt seen this am. c/o chest pain Physical Exam Constitutional: not ill appearing, not in distress and not diaphoretic Respiratory: normal respiratory effort; no respiratory distress and does not use accessory muscles Results & Data Vital Signs (Past 12 Hours) Vital Signs Temp Pulse Pulse Resp BP BP Pulse Ox 12/12/24 11:36 37.1 C 76 18 104/66 94 12/12/24 07:23 37.7 C H 90 18 105/68 94 12/12/24 07:00 88 12/12/24 02:56 36.8 C 72 16 110/72 93 O2 Del Method 12/12/24 11:36 Room Air 12/12/24 07:23 Room Air 12/12/24 07:00 12/12/24 02:56 Room Air PG Care Time/CCT Total # of Minutes Spent Total Time Spent with Patient: Total time spent is greater than 50% in coordination of care (as documented) at patient's floor/unit and/or counseling patient: Coding Level of Care Code 49810 Post Operative Follow-Up Diagnoses S/P laparoscopic cholecystectomy Z90.49 Abdominal pain, acute, epigastric R10.13
[2024-12-12] MEDS: OPTIRAY 320 100ml IV ONE (12:56)
--- NOTE | 2024-12-12 13:46 | CT Scan Report ---
ABDOMEN AND PELVIS CT WITH IV AND ORAL CONTRAST CT DOSE: 1348.48 mGy.cm HISTORY: Acute nausea with lower abdominal pain nausea, lower abd pain TECHNIQUE: Multiaxial CT images of the abdomen and pelvis were performed following the IV administrat ion of 94 cc of Optiray and oral contrast. A dose lowering technique was utilized adhering to the pr inciples of PAOLO. COMPARISON STUDY: CT abdomen and pelvis 12/11/2024 FINDINGS: There is progressive pronounced consolidative and groundglass densities within the right hilton ng base, noted within the basal segments of the right lower lobe with air bronchograms and right lowe r lobe mucus plugging which have progressed from yesterday's exam. Trace pleural effusions. Mild line ar left basilar consolidation. Cardiomegaly with coronary artery calcifications. There is no pneumatosis or pneumoperitoneum. Unremarkable spleen, pancreas and adrenal glands. Liver is within normal limits. Subcentimeter hypodensity in the inferior right hepatic lobe on image 43 ser ies 2 is too small to characterize, likely benign. Cholecystomy clips. There is stranding/trace fluid within the ulysses hepatis and also along the inferior right hepatic lobe. No drainable postoperative collection or choledocholithiasis identified. Unremarkable kidneys. No hydronephrosis. Subcentimeter hypodense focus of the inferior pole right kid cassy is too small to characterize, likely a cyst. Decompressed bladder. Prostatomegaly with 1.6 cm foc us of increased attenuation/enhancement within the left prostate apex. Atherosclerosis of the aorta. Increased amount of free fluid within the pelvis, still a small amount. Mid to distal esophageal wall thickening with large hiatal hernia. Moderate colonic fecal retention. Normal appendix. No acute fracture. Postoperative changes of the anterior abdominal wall. IMPRESSION: 1. Trace pleural effusions with prominent right basilar consolidation which is new/progressed from ye sterday's exam suspicious for aspiration pneumonitis. 2. Large hiatal hernia. 3. Evidence of recent laparoscopic cholecystectomy. There is no postoperative fluid collection, howev er small amount of nonspecific free pelvic fluid has increased from yesterday's study. 4. No bowel obstruction or bowel wall thickening. 5. Indeterminate enhancing linear focus within the prostate apex. Correlate with PSA level. ACT 112: Negative or not required by law. The above report was generated using voice recognition software. It may contain grammatical, syntax o r spelling errors. Electronically signed by: Gabriel Chavez M.D. 12/12/2024 1:45 PM
[2024-12-12] MEDS: PROMETHAZINE 12.5 MG/50.5 ML BAG IV PRN (14:25)
[2024-12-12] MEDS: PANTOprazole 40 MG in DEXTROSE 5% MINI-B 100 ML IV SCH (14:30)
[2024-12-12] MEDS: 4.5GM X1 IV STA (18:37)
[2024-12-13] MEDS: PIPERACILLIN/TAZOBACTAM 4.5 GM/100 ML BAG IV SCH (04:27)
[2024-12-13] MEDS: SODIUM CHLORIDE 0.9% 500 ML IV SCH (08:27)
--- NOTE | 2024-12-13 08:28 | Anesthesiology Consultation ---
Date of Service December 13, 2024 Assessment & Plan (1) Encounter for pre-operative examination: Chart Review Chart Review: Acceptable Risk for Surgery and Patient NOT seen in Pre Admission Testing Consults Requested none History Surgery Operation Date: 12/13/24 17:00 Proposed Procedures p Esophagogastroduodenoscopy Dr. Dwayne Rice MD Height/Weight Height: 5 ft 9 in Weight: 90.1 kg Allergies Allergy/AdvReac Type Severity Reaction Status Date / Time No Known Allergies Allergy Verified 12/11/24 13:44 Medications Home Medications Medication Instructions Recorded Confirmed Last Taken lisinopril 10 mg tablet 10 mg PO QAM 07/30/18 12/11/24 12/10/24 galcanezumab-gnlm 120 mg/mL 120 mg subcut MONTHLY 07/29/24 12/11/24 12/07/24 subcutaneous pen injector (Emgality Pen) celecoxib 200 mg capsule 200 mg PO BID 12/11/24 12/11/24 12/10/24 dihydroergotamine 0.5 mg/pump act. 1 spray intranasal UD PRN 12/11/24 12/11/24 Unknown (4 mg/mL) nasal spray Prolonged headache attack duloxetine 30 mg capsule,delayed 30 mg PO QAM 12/11/24 12/11/24 12/10/24 release iron,carbonyl 65 mg-vitamin C 125 1 tab PO Q OTHER DAY 12/11/24 12/11/24 12/10/24 mg tablet,delayed release (Vitron-C) promethazine 25 mg tablet 25 mg PO Q6H PRN Nausea 12/11/24 12/11/24 Unknown rabeprazole 20 mg tablet,delayed 20 mg PO DAILYBB 12/11/24 12/11/24 12/10/24 release rosuvastatin 5 mg tablet 5 mg PO HS 12/11/24 12/11/24 12/10/24 tadalafil 20 mg tablet 20 mg PO 2XWK 12/11/24 12/11/24 12/10/24 topiramate 100 mg tablet 100 mg PO QAM 12/11/24 12/11/24 12/10/24 Active Medications Generic Name Dose Route Start Last Admin Trade Name Freq PRN Reason Stop Dose Admin Hydromorphone HCl 1 mg 12/11/24 15:50 12/12/24 14:16 Hydromorphone Inj 2 Mg/Ml Syr/Vial IV 12/25/24 15:49 1 mg Q6H PRN Administration Severe Pain (Scale 7, 8, 9,10) Prochlorperazine 10 mg/ 10 mls @ 5 mls/min 12/11/24 19:29 12/12/24 11:16 Syringe IV 01/10/25 19:28 5 mls/min Q6H PRN Administration Nausea And Vomiting Sodium Chloride 1,000 mls @ 80 mls/hr 12/12/24 10:00 12/13/24 05:56 Nss IV 12/13/24 09:59 80 mls/hr .[id number] OMKAR Administration Pantoprazole Sodium 40 mg/ 100 mls @ 20 mls/hr 12/12/24 14:30 12/13/24 05:54 Dextrose IV 01/01/25 16:44 8 mg/hr Q5H OMKAR 20 mls/hr Administration 8 MG/HR Promethazine HCl 12.5 mg in 50.5 mls @ 202 mls/hr 12/12/24 13:59 12/13/24 07:28 Phenergan IV 01/11/25 13:58 202 mls/hr Q6H PRN Administration Nausea And Vomiting Piperacillin Sod/Tazobactam Sod 4.5 gm in 100 mls @ 25 mls/hr 12/13/24 02:30 12/13/24 06:25 Zosyn IV 12/18/24 02:29 25 mls/hr Q8H OMKAR Infusion Protocol Sodium Chloride 500 mls @ 15 mls/hr 12/13/24 07:30 12/13/24 08:27 Nss IV 12/14/24 07:29 15 mls/hr .Q24H OMKAR Administration Oxycodone HCl 5 mg 12/11/24 21:59 12/12/24 04:50 Oxycodone Hcl Ir 5 Mg Tab (Immediate Release) PO 12/25/24 21:58 5 mg Q4H PRN Administration Pain NPO Date Last Intake of Fluids: 12/13/24 Time Last Intake of Fluids: 06:00 Date Last Intake of Solids: 12/10/24 Past Medical History Medical History History of migraine History of COVID-19 01/2022, not hospitalized, sore throat, fatigue, home test>resolved. Barretts syndrome pt denies, never tested positive Dyslipidemia HTN (hypertension) GERD (gastroesophageal reflux disease) Past Family History Family History Father Family history of diabetes mellitus Other No family history of adverse response to anesthesia Past Surgical History Surgical History H/O thumb surgery bilateral thumb surgery History of esophagogastroduodenoscopy (EGD) History of colonoscopy History of arthroscopic knee surgery right History of elbow surgery RT. Social History Smoking Status: Never smoker Do You Dip or Chew Tobacco: No Hx Alcohol Use: No Alcohol type: beer alcohol intake frequency: a few times a week Hx Substance Use: No substance use type: does not use Physical Exam Vital Signs Last Vital Signs Temp 98.6 F 12/13/24 08:21 Pulse 68 12/13/24 08:21 Resp 16 12/13/24 08:21 BP 145/92 H 12/13/24 08:21 Pulse Ox 96 12/13/24 08:21 O2 Del Method Room Air 12/13/24 08:21 Testing Laboratory Results 12/12/24 06:55 12/12/24 06:55 Urine Color Dark Yellow 12/12/24 06:04 Urine Appearance Clear (Clear) 12/12/24 06:04 Urine pH 5.5 (4.5-7.5) 12/12/24 06:04 Ur Specific Bowman 1.043 (1.000-1.030) H 12/12/24 06:04 Urine Protein 1+ (Negative) H 12/12/24 06:04 Urine Glucose (UA) Negative (Negative) 12/12/24 06:04 Urine Ketones 1+ (Negative) H 12/12/24 06:04 Urine Nitrite Positive (Negative) A 12/12/24 06:04 Ur Leukocyte Esterase Trace (Negative) H 12/12/24 06:04 Urine WBC (Auto) 0-5 /hpf (0-5) 12/12/24 06:04 Urine RBC (Auto) 0-2 /hpf (0-2) 12/12/24 06:04 U Hyaline Cast (Auto) 0-2 /lpf (0-2) 12/12/24 06:04 U Epithel Cells (Auto) 0-2 /hpf (0-2) 12/12/24 06:04 Urine Bacteria (Auto) None Seen (None Seen) 12/12/24 06:04
--- NOTE | 2024-12-13 08:50 | Communication Note ---
Date of Service: December 13, 2024 Abdominal pain nausea vomiting aspiration pneumonia Patient was seen in preop holding. He states he is about 50% improved. Had a really good night though this morning he notes some recurrent nausea. He now finds that his abdominal pain is becoming localized at or below the bellybutton previously was epigastric and substernal. CT showed a large hiatal hernia. We will evaluate that today there is a slight increase of free fluid in the pelvis which again just could be postcholecystectomy. However I think it be reasonable to do a HIDA scan and this will be ordered. Rule out a slow bile leak.
--- NOTE | 2024-12-13 09:04 | Communication Note ---
Date of Service: December 13, 2024 EGD Moderate to large hiatal hernia 8 to 9 cm. There is a paraesophageal component 2 to 3 cm. There is retained secretions in the saliva suggesting some esophageal dysmotility or delayed emptying. The hernia sac showed erythema and multiple Jarrod erosions. The more distal stomach appeared normal. Seems confined to the hernia sac itself. He was some bile in the stomach. Pylorus duodenum normal without evidence of outlet obstruction At this point with the CT findings patient's presentation with pressure gas bubble in the upper GI tract substernal area aspiration pneumonia and today's findings. I believe he has a symptomatic hiatal hernia paraesophageal component. Could be considered for repair. As surgery to reassess Perform HIDA scan for completeness
--- NOTE | 2024-12-13 09:13 | GI REPORT ---
[facility] Patient: XENIA HUBER : 1965 Sex at : Male Age: 59 Years Procedure: Upper GI endoscopy Date: 12/13/2024 Attending Physician: Aurelio Rice MD Referring MD: Buck Chawla Indications: - Upper abdominal pain, chronic nausea, aspiration pneumonia Medications: - Monitored Anesthesia Care Complications: - No immediate complications. Estimated Blood Loss: - Estimated blood loss was minimal. Procedure: - The egd scope was introduced through the mouth and advanced to the second part of the duodenum. - The upper GI endoscopy was accomplished without difficulty. - The patient tolerated the procedure well. Findings: - A 9 cm hiatal hernia was present. There is a 2 to 3 cm paraesophageal component. This was full of retained bile and gastric secretions which were suctioned - Multiple Jarrod ulcers was found. The hiatal narrowing was 43 cm from the incisors. - The examined duodenum was normal. Impression: - 9 cm hiatal hernia. Paraesophageal component - Multiple Jarrod ulcers. - Normal examined duodenum. - No specimens collected. Recommendation: - I believe the patient's presentation CT findings aspiration pneumonia fit with symptomatic hiatal hernia. Paraesophageal component of course makes this more likely. As surgery to assess for potential repair Procedure Code(s): - 59070, Esophagogastroduodenoscopy, flexible, transoral; diagnostic, including collection of specimen(s) by brushing or washing, when performed (separate procedure) Diagnosis Code(s): - K44.9, Diaphragmatic hernia without obstruction or gangrene - K25.9, Gastric ulcer, unspecified as acute or chronic, without hemorrhage or perforation CPT(R) - 2023 copyright [employer]. All Rights Reserved. The CPT codes, CCI edits and ICD codes generated are intended as suggestions and were generated based on input data. These codes are preliminary and upon mold maker [employer] molds review may be revised to meet current compliance and payer requirements. The provider is responsible for the final determination of appropriate codes, and modifiers. Aurelio Rice MD This document has been electronically signed. Note Initiated:12/13/2024 Note Completed:12/13/2024 9:12 AM [id number]
--- NOTE | 2024-12-13 10:09 | Anesthesiology Progress Note ---
Date of Service December 13, 2024 Anesthesia Post Procedure Vital Signs Vital Signs: Temp Pulse Pulse Resp BP BP Pulse Ox 12/13/24 09:35 69 16 136/92 97 12/13/24 09:19 83 16 130/79 97 12/13/24 09:04 78 16 107/86 95 12/13/24 08:21 98.6 F 68 16 145/92 H 96 12/13/24 08:00 109 H 12/13/24 03:38 98.1 F 75 18 144/88 H 97 12/12/24 22:15 99.1 F 75 18 136/76 95 12/12/24 21:52 71 12/12/24 20:28 98.2 F 82 18 130/81 94 12/12/24 16:10 99.1 F 85 22 154/83 H 96 12/12/24 16:00 84 12/12/24 11:36 98.8 F 76 18 104/66 94 O2 Del Method O2 Flow Rate 12/13/24 09:35 Room Air 12/13/24 09:19 Room Air 12/13/24 09:04 Oxymask 7 12/13/24 08:21 Room Air 12/13/24 08:00 12/13/24 03:38 Room Air 12/12/24 22:15 Room Air 12/12/24 21:52 12/12/24 20:28 Room Air 12/12/24 16:10 Room Air 12/12/24 16:00 12/12/24 11:36 Room Air Pain Intensity Abdomen: Pain Intensity: 6 Transfer of Care Handoff Completed per policy Notes Mental Status: alert / awake / arousable and participated in evaluation Patient Amnestic to Procedure: Yes Nausea / Vomiting: adequately controlled Pain: adequately controlled Airway Patency, RR, SpO2: stable & adequate BP & HR: stable & adequate Hydration State: stable & adequate Anesthetic Complications: no major complications apparent and Pt Satisfied with anesthetic care
--- NOTE | 2024-12-13 11:25 | Nuclear Medicine Report ---
NM hepatobiliary CLINICAL HISTORY: 59 years-old Male with PostGB, pain and free fluid in pelvis,?? bile leak. Acute r ight upper quadrant abdominal pain TECHNIQUE: Sequential anterior abdominal images were obtained through 60 minutes following the intra venous administration of 6.1 mCi of technetium-99m Choletec. COMPARISON: CT 12/12/2024 FINDINGS: There is prompt, uniform accumulation of the tracer by the liver. There is normal filling of the int rahepatic ducts, common bile duct and normal excretion of the tracer into the duodenum. The gallblad sherita is surgically absent. No extravasation to suggest a bile leak. Enterogastric reflux noted. IMPRESSION: Normal hepatobiliary study status post cholecystectomy. No scintigraphic evidence of a p ostsurgical bile leak. ACT 112: Negative or not required by law. The above report was generated using voice recognition software. It may contain grammatical, syntax o r spelling errors. Electronically signed by: Gabriel Chavez M.D. 12/13/2024 11:24 AM
[2024-12-13] MEDS: LIDOCAINE 2% 2 ML VIAL/AMP(20MG/ML) INFIL ONE (11:30)
[2024-12-13] MEDS: PROPOFOL IV EMULSION 10 MG/ML 20 ML VIAL IV ONE (11:30)
[2024-12-13] MEDS: D5NSS + 20MEQ KCL 20 MEQ/1,000 ML BAG IV SCH (12:55)
[2024-12-13 13:25] LABS: Basophils # (auto) 0.01 K/uL (0.00-0.20); Basophils % (auto) 0.1 %; Eosinophils # (auto) 0.02 K/uL (0.00-0.50); Eosinophils % (auto) 0.2 %; Hematocrit (blood only) 40.4 % (42.0-52.0); Hemoglobin 13.9 g/dl (14.0-18.0); Immature Granulocytes # (auto) 0.08 K/uL (0.01-0.20); Immature Granulocytes % (auto) 0.9 %; Lymphocytes # (auto) 0.42 K/uL (1.20-3.40); Lymphocytes % (auto) 4.6 %; Mean Corpuscular Hemoglobin 30.2 pg (25.0-34.0); Mean Corpuscular Hgb Conc 34.4 g/dL (32.0-36.0); Mean Corpuscular Volume 87.6 fL (80.0-100.0); Mean Platelet Volume 10.1 fL (9.4-12.4); Monocytes # (auto) 0.53 K/uL (0.11-0.59); Monocytes % (auto) 5.8 %; Neutrophils % (auto) 88.4 %; Platelet Count 149 K/uL (130-400); RDW Coefficient of Variation 13.2 % (11.5-14.5); RDW Standard Deviation 42.2 fL (36.4-46.3); Red Blood Count 4.61 M/uL (4.70-6.10); White Blood Count 9.06 K/ul (4.8-10.8)
[2024-12-13 13:50] LABS: Albumin Level 3.4 gm/dl (3.4-5.0); BUN Creatinine Ratio 23.5 (10-20); Bilirubin Direct 0.3 mg/dl (0-0.2); Bilirubin,Total 0.8 mg/dl (0.2-1.0); Calcium 9.2 mg/dl (8.6-10.3); Potassium 3.5 mmol/L (3.5-5.1); Total Protein 6.4 gm/dl (6.0-8.3)
--- NOTE | 2024-12-13 17:12 | Hospitalist Progress Note ---
Date of Service December 13, 2024 Assessment & Plan (1) Abdominal pain, acute, epigastric: (2) S/P laparoscopic cholecystectomy: Plan per admitting service notes with addendum: Mr. Jesenia Olmedo is a 59 yr old male with history of polyarthralgia, HTN, hyperlipidemia, migraines GERD, and chronic nausea who will be admitted to med/tele iso refractory nausea and abdominal as well as assessment of hematemesis. Hematemesis noted and given current presentation, chronic nsaid use, and not clearly related to post op, will keep NPO, start protonix and consult GI Last endoscopy reports as follows: Last endoscopy reviewed 2020: The esophagus was normal. A small hiatal hernia was present. The entire examined stomach was otherwise normal. Biopsies were taken with a cold forceps for Helicobacter pylori testing. Verification of patient identification for the specimen was done by the physician and nurse using the patient's name and medical record number. Estimated blood loss was minimal. The examined duodenum was normal. The cardia and gastric fundus were normal on retroflexion. 2016: Impression: - Z-line irregular, 38 cm from the incisors. Biopsied. - Small hiatus hernia. - Normal examined duodenum. Recommendation: - Await pathology results. - Follow an antireflux regimen. - Use Protonix (pantoprazole) 40 mg PO BID. - Return to primary care physician as previously scheduled. - Discharge patient to home. #Acute on chronic nausea #Hematemesis #s/p lap lay 12/[address] Dillon surgery evaluated in ED, low suspicion for any post-op complications per Comm note by Surgery episode of coffee ground emesis reported per patient this am after vomiting start PPI drip hold NSAIDS NPO Consult GI IVF Repeat HH this afternoon zofran prn trial of emend 12/12 still having abd pain, nausea repeat CT abd/pelvis: 1. Trace pleural effusions with prominent right basilar consolidation which is new/progressed from yesterday's exam suspicious for aspiration pneumonitis. 2. Large hiatal hernia. 3. Evidence of recent laparoscopic cholecystectomy. There is no postoperative fluid collection, however small amount of nonspecific free pelvic fluid has increased from yesterday's study. 4. No bowel obstruction or bowel wall thickening. 5. Indeterminate enhancing linear focus within the prostate apex. Correlate with PSA level. GI notified, possible EGD tomorrow monitor closely 12/13 Status post EGD: Positive large hiatal hernia, positive ellis Ulcers GI service notes reviewed Discussed with general surgery Dr. Gill, recommend outpatient referral to Dr. Maldonado for repair of hiatal hernia Discussed with patient and his , tried to call [facility] and [facility] in [place] to transfer patient for evaluation of hiatal hernia repair,Despite explanation of patient's longstanding nausea, abdominal pain, inability to eat, weight loss, unfortunately both centers have declined to accept the patient at this time citing his case does not require emergent procedure at this time in the absence of volvulus/obstruction and that this would have to be an elective procedure as outpatient At this point, will add sucralfate 4 times daily Continue Protonix drip Continue n.p.o. except medications and sips of water for bowel rest Will reevaluate tomorrow hopefully will be able to start with clear liquids #Leukocytosis likely reactive, however given recent procedure and current condition will cover with cipro/flagyl and follow clinical course 12/12 CT abdomen and pelvis showing right lower lobe consolidation with air bronchograms possible aspiration pneumonia Cipro + Flagyl changed to Zosyn IV Respiratory status stable Continue to monitor closely #abnormal UA will need repeat UA as outpatient #Polyarthralgia #chronic low back pain: follows rheumatology Low suspicion for an inflammatory arthritis per rheumatology Hold celebrex and NSAIDs for now #Migraines Resume Topamax currently 100 mg daily when able Resume Cymbalta 60 mg, riboflavin 400 mg, magnesium oxide 100 mg On Emgality monthly monoclonal injection q month #HTN hold lisnopril for now given limited po intake DVT SCDs Full code Disposition Pending Anticipate return to home medically stable Admission and Anticipated Discharge Date Admission Date: December 11, 2024 Subjective Follow-up for abdominal pain, nausea, etc. Status post EGD earlier this morning Seen resting in bed, not in distress, comfortable overall Still having nausea Abdominal pain seems to be improving No hematemesis, hematochezia No other new symptoms Review of Systems Review of Systems: all noted and negative except for above Physical Exam Physical Exam: General- oriented x 3, not in distress, speaks in sentences with no effort or accessory muscle use Eyes- anicteric Neck- no JVD Lungs- clear breath sounds bilaterally, no rales/wheezes Heart- normal rate, regular rhythm; no murmurs Abdomen- normal bowel sounds, nondistended, soft, nontender Extremities- no pretibial edema, no calf tenderness Neuro- alert, oriented x 3; no gross focal neurologic deficits Skin- warm & dry Results & Data Results & Data Vital Signs (Past 12 Hours) Vital Signs Temp Pulse Pulse Resp BP BP Pulse Ox 12/13/24 15:23 85 12/13/24 12:24 36.8 C 77 16 157/85 H 98 12/13/24 09:35 69 16 136/92 97 12/13/24 09:19 83 16 130/79 97 12/13/24 09:04 78 16 107/86 95 12/13/24 08:21 37.0 C 68 16 145/92 H 96 12/13/24 08:00 109 H O2 Del Method O2 Flow Rate 12/13/24 15:23 12/13/24 12:24 Room Air 12/13/24 09:35 Room Air 12/13/24 09:19 Room Air 12/13/24 09:04 Oxymask 7 12/13/24 08:21 Room Air 12/13/24 08:00 all noted and reviewed including below
[2024-12-13] MEDS: SUCRALFATE 1 GM/10 ML UDC PO SCH (20:41)
[2024-12-13] MEDS: ACETAMINOPHEN 1,000 MG/100 ML VIAL IV STA (21:42)
[2024-12-14 06:34] LABS: Basophils # (auto) 0.02 K/uL (0.00-0.20); Basophils % (auto) 0.3 %; Eosinophils # (auto) 0.17 K/uL (0.00-0.50); Eosinophils % (auto) 2.3 %; Hematocrit (blood only) 36.8 % (42.0-52.0); Hemoglobin 12.8 g/dl (14.0-18.0); Immature Granulocytes # (auto) 0.07 K/uL (0.01-0.20); Immature Granulocytes % (auto) 0.9 %; Lymphocytes # (auto) 0.65 K/uL (1.20-3.40); Lymphocytes % (auto) 8.6 %; Mean Corpuscular Hemoglobin 30.3 pg (25.0-34.0); Mean Corpuscular Hgb Conc 34.8 g/dL (32.0-36.0); Mean Platelet Volume 10.3 fL (9.4-12.4); Monocytes # (auto) 0.56 K/uL (0.11-0.59); Monocytes % (auto) 7.4 %; Neutrophils # (auto) 6.08 K/uL (1.40-6.50); Neutrophils % (auto) 80.5 %; Platelet Count 150 K/uL (130-400); RDW Coefficient of Variation 13.2 % (11.5-14.5); RDW Standard Deviation 41.7 fL (36.4-46.3); Red Blood Count 4.23 M/uL (4.70-6.10); White Blood Count 7.55 K/ul (4.8-10.8)
[2024-12-14 06:54] LABS: BUN Creatinine Ratio 19.6 (10-20); Bilirubin Direct 0.2 mg/dl (0-0.2); Bilirubin,Total 0.8 mg/dl (0.2-1.0); Calcium 8.9 mg/dl (8.6-10.3); Creatinine Clr Calc Pharmacy 90.6 ml/min; Potassium 3.5 mmol/L (3.5-5.1); Total Protein 5.8 gm/dl (6.0-8.3)
[2024-12-14] MEDS: HYDROmorphone INJ 0.5 MG/0.5 ML SYR IV STA (12:10)
--- NOTE | 2024-12-14 12:41 | Gastroenterology Progress Note ---
Date of Service December 14, 2024 Assessment & Plan (1) Abdominal pain, acute, epigastric: Plan: EGD revealed large hiatal hernia with paraesophageal component to it. His chest pain may be related to that if the paraesophageal component enlarged and then got stuck. The confusing part is the periumbilical component. He has nothing endoscopically that would cause this amount of pain. I would suggest having surgery see patient again and perhaps repeating CT scan. Admission and Anticipated Discharge Date Admission Date: December 11, 2024 Subjective Asked to come back to see patient as he had "10/10" pain one hour after eating. Most of the pain was in his chest going into his back and left shoulder along with periumbilical pain. No vomiting. Received pain meds now 5/10 and nearer to his umbilicus. Physical Exam Physical Exam: He looks well Constitutional: WD/WN, vitals as above Gastrointestinal (Abdomen): normal bowel sounds, soft, nontender, no hepa tosplenomegaly Results & Data Vital Signs (Past 12 Hours) Vital Signs Temp Pulse Pulse Resp BP BP Pulse Ox 12/14/24 08:13 36.5 C 64 18 158/92 H 96 12/14/24 07:00 65 12/14/24 03:56 36.8 C 90 20 158/82 H 94 O2 Del Method 12/14/24 08:13 Room Air 12/14/24 07:00 12/14/24 03:56 Room Air
[2024-12-14] MEDS: FAMOTIDINE 20MG IV PUSH 20 MG/5 ML SYR IV ONE (13:29)
--- NOTE | 2024-12-14 14:03 | CT Scan Report ---
ABDOMEN AND PELVIS CT WITHOUT CONTRAST CT DOSE: 1286.7 mGy.cm HISTORY: severe upper abdominal pain TECHNIQUE: Multiaxial CT images of the abdomen and pelvis were performed without contrast. A dose lo wering technique was utilized adhering to the principles of ALARA. COMPARISON STUDY: 12/12/2024 FINDINGS: There is persistent patchy consolidation at the visualized right lower lung, improved. Ther e is a stable trace right pleural effusion. Stable large hiatal hernia. ABDOMEN: Gallbladder is surgically absent. Liver, spleen, pancreas, and adrenal glands have an unrema rkable non-IV contrasted appearance. Kidneys show no hydronephrosis or calculi. There are mild athero sclerotic calcifications. No abdominal aortic aneurysm. Pelvis: Urinary bladder is decompressed. Prostate is enlarged. There is no significant retained stool . There is mild diffuse wall thickening and inflammation at the colon consistent with diffuse colitis . Normal appendix. No other bowel inflammation or obstruction. Stable small amount of low pelvic asci mar. No free air or abscess. No enlarged adenopathy. Osseous structures: No acute osseous findings. IMPRESSION: 1. Persistent pneumonia at the right lung, improved. 2. Interval mild diffuse colitis. 3. Otherwise as described. ACT 112: Negative or not required by law. The above report was generated using voice recognition software. It may contain grammatical, syntax o r spelling errors. Electronically signed by: Hermilo Wall M.D. 12/14/2024 2:00 PM
--- NOTE | 2024-12-14 14:37 | Hospitalist Progress Note ---
Date of Service December 14, 2024 Assessment & Plan (1) Abdominal pain, acute, epigastric: (2) S/P laparoscopic cholecystectomy: Plan per admitting service notes with addendum: Mr. Jesenia Olmedo is a 59 yr old male with history of polyarthralgia, HTN, hyperlipidemia, migraines GERD, and chronic nausea who will be admitted to med/tele iso refractory nausea and abdominal as well as assessment of hematemesis. Hematemesis noted and given current presentation, chronic nsaid use, and not clearly related to post op, will keep NPO, start protonix and consult GI Last endoscopy reports as follows: Last endoscopy reviewed 2020: The esophagus was normal. A small hiatal hernia was present. The entire examined stomach was otherwise normal. Biopsies were taken with a cold forceps for Helicobacter pylori testing. Verification of patient identification for the specimen was done by the physician and nurse using the patient's name and medical record number. Estimated blood loss was minimal. The examined duodenum was normal. The cardia and gastric fundus were normal on retroflexion. 2016: Impression: - Z-line irregular, 38 cm from the incisors. Biopsied. - Small hiatus hernia. - Normal examined duodenum. Recommendation: - Await pathology results. - Follow an antireflux regimen. - Use Protonix (pantoprazole) 40 mg PO BID. - Return to primary care physician as previously scheduled. - Discharge patient to home. #Acute on chronic nausea #Hematemesis #s/p lap lay 12/[address] Dillon surgery evaluated in ED, low suspicion for any post-op complications per Comm note by Surgery episode of coffee ground emesis reported per patient this am after vomiting start PPI drip hold NSAIDS NPO Consult GI IVF Repeat HH this afternoon zofran prn trial of emend 12/12 still having abd pain, nausea repeat CT abd/pelvis: 1. Trace pleural effusions with prominent right basilar consolidation which is new/progressed from yesterday's exam suspicious for aspiration pneumonitis. 2. Large hiatal hernia. 3. Evidence of recent laparoscopic cholecystectomy. There is no postoperative fluid collection, however small amount of nonspecific free pelvic fluid has increased from yesterday's study. 4. No bowel obstruction or bowel wall thickening. 5. Indeterminate enhancing linear focus within the prostate apex. Correlate with PSA level. GI notified, possible EGD tomorrow monitor closely 12/13 Status post EGD: Positive large hiatal hernia, positive ellis Ulcers GI service notes reviewed Discussed with general surgery Dr. Gill, recommend outpatient referral to Dr. Maldonado for repair of hiatal hernia Discussed with patient and his , tried to call [facility] and [facility] in [place] to transfer patient for evaluation of hiatal hernia repair,Despite explanation of patient's longstanding nausea, abdominal pain, inability to eat, weight loss, unfortunately both centers have declined to accept the patient at this time citing his case does not require emergent procedure at this time in the absence of volvulus/obstruction and that this would have to be an elective procedure as outpatient At this point, will add sucralfate 4 times daily Continue Protonix drip Continue n.p.o. except medications and sips of water for bowel rest Will reevaluate tomorrow hopefully will be able to start with clear liquids 12/14 had severe abdominal pain, uppper, after starting clear liquid for the [address] abd/pelvis: ABDOMEN AND PELVIS CT WITHOUT CONTRAST CT DOSE: 1286.7 mGy.cm HISTORY: severe upper abdominal pain TECHNIQUE: Multiaxial CT images of the abdomen and pelvis were performed without contrast. A dose lowering technique was utilized adhering to the principles of ALARA. COMPARISON STUDY: 12/12/2024 FINDINGS: There is persistent patchy consolidation at the visualized right lower lung, improved. There is a stable trace right pleural effusion. Stable large hiatal hernia. ABDOMEN: Gallbladder is surgically absent. Liver, spleen, pancreas, and adrenal glands have an unremarkable non-IV contrasted appearance. Kidneys show no hydronephrosis or calculi. There are mild atherosclerotic calcifications. No abdominal aortic aneurysm. Pelvis: Urinary bladder is decompressed. Prostate is enlarged. There is no significant retained stool. There is mild diffuse wall thickening and inflammation at the colon consistent with diffuse colitis. Normal appendix. No other bowel inflammation or obstruction. Stable small amount of low pelvic ascit es. No free air or abscess. No enlarged adenopathy. Osseous structures: No acute osseous findings. IMPRESSION: 1. Persistent pneumonia at the right lung, improved. 2. Interval mild diffuse colitis. 3. Otherwise as described. discussed with GI and Gen Surg per Dr. Montana, no surgical intervention recommended at this time continue to monitor hold off on diet for today, reassess tomorrow continue IV fluids #Leukocytosis likely reactive, however given recent procedure and current condition will cover with cipro/flagyl and follow clinical course 12/12 CT abdomen and pelvis showing right lower lobe consolidation with air bronchograms possible aspiration pneumonia Cipro + Flagyl changed to Zosyn IV Respiratory status stable Continue to monitor closely #abnormal UA will need repeat UA as outpatient #Polyarthralgia #chronic low back pain: follows rheumatology Low suspicion for an inflammatory arthritis per rheumatology Hold celebrex and NSAIDs for now #Migraines Resume Topamax currently 100 mg daily when able Resume Cymbalta 60 mg, riboflavin 400 mg, magnesium oxide 100 mg On Emgality monthly monoclonal injection q month #HTN hold lisnopril for now given limited po intake DVT SCDs Full code Disposition Pending Anticipate return to home medically stable Admission and Anticipated Discharge Date Admission Date: December 11, 2024 Subjective ff up for nausea, hematemesis, abdominal pain, etc seen resting in bed, sitting up, comfortable had severe abdominal pain after receiving carate last night, resolved had carafate again this morning, tolerated well on exam, feels ok overall, no nausea, abdominal pain around 12 noon, patient developed severe upper abdominal pain after having clear liquids not relieved by Dilaudid IV 1 g patient re-evaluated still having 8/10 upper abdominal pain given another dose of Dilaudid IV 0.5mg CT abd/pelvis ordered afterwards, patient calmer, resting as per sterile processing technician of Systems Review of Systems: all noted and negative except for above Physical Exam Physical Exam: General- oriented x 3, not in distress, speaks in sentences with no effort or accessory muscle use Eyes- anicteric Neck- no JVD Lungs- clear breath sounds bilaterally, no rales/wheezes Heart- normal rate, regular rhythm; no murmurs Abdomen- normal bowel sounds, nondistended, soft, nontender Extremities- no pretibial edema, no calf tenderness Neuro- alert, oriented x 3; no gross focal neurologic deficits Skin- warm & dry Results & Data Results & Data Vital Signs (Past 12 Hours) Vital Signs Temp Pulse Pulse Resp BP BP Pulse Ox 12/14/24 08:13 36.5 C 64 18 158/92 H 96 12/14/24 07:00 65 12/14/24 03:56 36.8 C 90 20 158/82 H 94 O2 Del Method 12/14/24 08:13 Room Air 12/14/24 07:00 12/14/24 03:56 Room Air all noted and reviewed including below
[2024-12-14] MEDS: D5NSS + 20MEQ KCL 20 MEQ/1,000 ML BAG IV SCH (14:42)
--- NOTE | 2024-12-14 16:34 | Communication Note ---
Date of Service: December 14, 2024 I was asked by Dr. Silva see the patient and reconsult. He has a known hiatal hernia with paraesophageal component and Jarrod's ulcers based off of an EGD that was done earlier this week. He attempted to have a clear liquid diet today. Within the hour of drinking he had experienced severe epigastric pain radiating to his left chest and shoulder as well as his abdomen. He underwent a CT scan which demonstrated the hiatal hernia but no evidence of other intra- abdominal pathology. No fluid collection within the gallbladder fossa. No intervention abdominal abscess. Currently he is resting comfortably, is afebrile, no nausea or abdominal pain at this time. Discussion with him concerning the hernia. This may be the cause of his pain. He is currently on Protonix, famotidine, and sucralfate. He may require repair of the hiatal hernia and a more urgent fashion. We will keep him n.p.o. for now, possibly do an upper GI series on Monday. We will revisit the possibility of repair either here with Dr. Rendon or transfer to [place] or [place] at that time.
[2024-12-14] MEDS: FAMOTIDINE 20MG IV PUSH 20 MG/5 ML SYR IV SCH (20:58)
[2024-12-14] MEDS: ZOLPIDEM TARTRATE 5 MG TAB PO PRN (22:51)
[2024-12-15 04:55] LABS: Adenovirus F 40/41 PCR Not Detected (NotDetected); Astrovirus PCR Not Detected (NotDetected); Campylobacter PCR Not Detected (NotDetected); Cryptosporidium PCR Not Detected (NotDetected); Cyclospora cayetanensis PCR Not Detected (NotDetected); Entamoeba histolytica PCR Not Detected (NotDetected); Enteroaggregative E.coli(EAEC) Not Detected (NotDetected); Enteropathogenic E.coli (EPEC) Not Detected (NotDetected); Enterotoxigenic E.coli (ETEC) Not Detected (NotDetected); Giardia lamblia PCR Not Detected (NotDetected); Norovirus GI/GII PCR Not Detected (NotDetected); Plesiomonas shigelloides PCR Not Detected (NotDetected); Rotavirus A PCR Not Detected (NotDetected); Salmonella PCR Not Detected (NotDetected); Sapovirus PCR Not Detected (NotDetected); Shiga-like Toxin E.coli (STEC) Not Detected (NotDetected); Shigella/Enteroinvasive E.coli Not Detected (NotDetected); Vibrio cholerae PCR Not Detected (NotDetected); Vibrio species PCR Not Detected (NotDetected); Yersinia enterocolitica PCR Not Detected (NotDetected)
[2024-12-15 06:10] LABS: Eosinophils # (auto) 0.18 K/uL (0.00-0.50); Eosinophils % (auto) 3.3 %; Hematocrit (blood only) 36.9 % (42.0-52.0); Hemoglobin 12.9 g/dl (14.0-18.0); Immature Granulocytes # (auto) 0.03 K/uL (0.01-0.20); Immature Granulocytes % (auto) 0.6 %; Lymphocytes # (auto) 0.44 K/uL (1.20-3.40); Lymphocytes % (auto) 8.1 %; Mean Corpuscular Hemoglobin 30.7 pg (25.0-34.0); Mean Corpuscular Volume 87.9 fL (80.0-100.0); Mean Platelet Volume 10.2 fL (9.4-12.4); Monocytes # (auto) 0.41 K/uL (0.11-0.59); Monocytes % (auto) 7.5 %; Neutrophils # (auto) 4.38 K/uL (1.40-6.50); Neutrophils % (auto) 80.5 %; Platelet Count 158 K/uL (130-400); RDW Coefficient of Variation 13.2 % (11.5-14.5); RDW Standard Deviation 42.5 fL (36.4-46.3); White Blood Count 5.44 K/ul (4.8-10.8)
[2024-12-15 06:11] LABS: BUN Creatinine Ratio 12.5 (10-20); Bilirubin Direct 0.3 mg/dl (0-0.2); Bilirubin,Total 0.7 mg/dl (0.2-1.0); Calcium 8.2 mg/dl (8.6-10.3); Creatinine Clr Calc Pharmacy 85.4 ml/min; Potassium 3.4 mmol/L (3.5-5.1); Total Protein 5.5 gm/dl (6.0-8.3)
[2024-12-15] MEDS: ACETAMINOPHEN 1,000 MG/100 ML VIAL IV PRN (08:00)
[2024-12-15] MEDS: POTASSIUM CHLORIDE / WTR 10 MEQ/100 ML PLCT IV SCH (08:58)
--- NOTE | 2024-12-15 09:57 | Gastroenterology Progress Note ---
Date of Service December 15, 2024 Assessment & Plan (1) Abdominal pain, acute, epigastric: Plan: Agree with plans. Nothing further to add Admission and Anticipated Discharge Date Admission Date: December 11, 2024 Subjective Feeling well. No more pains. Surgical note noted and appreciated. Patient tells me he is going to [place] today for "emergent surgery" Physical Exam Physical Exam: He looks well Constitutional: WD/WN, vitals as above Results & Data Vital Signs (Past 12 Hours) Vital Signs Temp Pulse Pulse Resp BP Pulse Ox O2 Del Method 12/15/24 07:25 37.2 C 97 H 18 156/90 H 95 Room Air 12/15/24 03:19 36.8 C 81 18 145/84 H 94 Room Air 12/14/24 22:52 37.1 C 81 18 134/80 96 Room Air 12/14/24 22:04 79
--- NOTE | 2024-12-15 10:08 | Hospitalist Progress Note ---
Date of Service December 15, 2024 Assessment & Plan (1) Abdominal pain, acute, epigastric: (2) S/P laparoscopic cholecystectomy: Plan per admitting service notes with addendum: Mr. Jesenia Olmedo is a 59 yr old male with history of polyarthralgia, HTN, hyperlipidemia, migraines GERD, and chronic nausea who will be admitted to med/tele iso refractory nausea and abdominal as well as assessment of hematemesis. Hematemesis noted and given current presentation, chronic nsaid use, and not clearly related to post op, will keep NPO, start protonix and consult GI Last endoscopy reports as follows: Last endoscopy reviewed 2020: The esophagus was normal. A small hiatal hernia was present. The entire examined stomach was otherwise normal. Biopsies were taken with a cold forceps for Helicobacter pylori testing. Verification of patient identification for the specimen was done by the physician and nurse using the patient's name and medical record number. Estimated blood loss was minimal. The examined duodenum was normal. The cardia and gastric fundus were normal on retroflexion. 2016: Impression: - Z-line irregular, 38 cm from the incisors. Biopsied. - Small hiatus hernia. - Normal examined duodenum. Recommendation: - Await pathology results. - Follow an antireflux regimen. - Use Protonix (pantoprazole) 40 mg PO BID. - Return to primary care physician as previously scheduled. - Discharge patient to home. NAUSEA, HEMATEMESIS, ABDOMINAL PAIN LIKELY SECONDARY TO HIATAL HERNIA, WITH JARROD ULCERS s/p lap annie 12/[address] Dillon patient underwent above due to GI symptoms felt to be secondary to biliary dyskinesia patient continued to have persistent nausea and abdominal pain after procedure 12/12 still having abd pain, nausea repeat CT abd/pelvis: 1. Trace pleural effusions with prominent right basilar consolidation which is new/progressed from yesterday's exam suspicious for aspiration pneumonitis. 2. Large hiatal hernia. 3. Evidence of recent laparoscopic cholecystectomy. There is no postoperative fluid collection, however small amount of nonspecific free pelvic fluid has increased from yesterday's study. 4. No bowel obstruction or bowel wall thickening. 5. Indeterminate enhancing linear focus within the prostate apex. Correlate with PSA level. GI notified, EGD planned Gen Surg- symptoms unlikely related to Lap Annie done last week, LFTs normal 12/13 Status post EGD: Positive large hiatal hernia, 9cm, with paraesophageal component, positive Jarrod Ulcers HIDA scan: negative GI service notes reviewed- recommend General Surgery eval for hiatal hernia repair General surgery unfortunately does not perform hiatal hernia repair Discussed with patient and his , called [facility] and [facility] in [place] to transfer patient for evaluation of hiatal hernia repair at this time, recommendation is to continue with conservative management and monitor closely At this point, will add sucralfate 4 times daily Continue Protonix drip Continue n.p.o. except medications and sips of water for bowel rest Will reevaluate tomorrow hopefully will be able to start with clear liquids 12/14 had severe chest and abdominal pain, after starting clear liquid for the st time CT abd/pelvis: ABDOMEN AND PELVIS CT WITHOUT CONTRAST COMPARISON STUDY: 12/12/2024 FINDINGS: There is persistent patchy consolidation at the visualized right lower lung, improved. There is a stable trace right pleural effusion. Stable large hiatal hernia. ABDOMEN: Gallbladder is surgically absent. Liver, spleen, pancreas, and adrenal glands have an unremarkable non-IV contrasted appearance. Kidneys show no hydronephrosis or calculi. There are mild atherosclerotic calcifications. No abdominal aortic aneurysm. Pelvis: Urinary bladder is decompressed. Prostate is enlarged. There is no significant retained stool. There is mild diffuse wall thickening and inflammation at the colon consistent with diffuse colitis. Normal appendix. No other bowel inflammation or obstruction. Stable small amount of low pelvic ascites. No free air or abscess. No enlarged adenopathy. Osseous structures: No acute osseous findings. IMPRESSION: 1. Persistent pneumonia at the right lung, improved. 2. Interval mild diffuse colitis. 3. Otherwise as described. discussed with GI and Gen Surg- recommend re-evaluation for hiatal hernia repair 12/15 discussed with [facility] Surgeon Dr. Shmuel Mayen- patient not improving at all, cannot tolerate even clear liquid diet due to severe chest and abdominal pain requiring IV Dilaudid patient accepted for transfer today NG tube placement also recommended Aspiration Pneumonia 12/12 CT abdomen and pelvis showing right lower lobe consolidation with air bronchograms possible aspiration pneumonia Cipro + Flagyl changed to Zosyn IV 12/15 Respiratory status stable continue IV Zosyn day#4 Continue to monitor closely Abnormal Urinalysis (+) protein, ketones, nitrites, bilirubin, urobilinogen, leukocyte esterase no urinary symptoms will need repeat UA as outpatient #Polyarthralgia #chronic low back pain: follows rheumatology Low suspicion for an inflammatory arthritis per rheumatology Hold celebrex and NSAIDs for now #Migraines Resume Topamax currently 100 mg daily when able Resume Cymbalta 60 mg, riboflavin 400 mg, magnesium oxide 100 mg On Emgality monthly monoclonal injection q month #HTN hold lisnopril for now given limited po intake DVT SCDs Full code Disposition transfer to [facility] Admission and Anticipated Discharge Date Admission Date: December 11, 2024 Subjective ff up for abdominal pain, etc seen resting in bed, not in distress still having intermittent abdominal pain and nausea also has intermittent cough, but not shortness of breath no other new symptoms Review of Systems Review of Systems: all noted and negative except for above Physical Exam Physical Exam: General- oriented x 3, not in distress, speaks in sentences with no effort or accessory muscle use Eyes- anicteric Neck- no JVD Lungs- mild rhonchi R base, clear on the left Heart- normal rate, regular rhythm; no murmurs Abdomen- normal bowel sounds, nondistended, soft, no tenderness Extremities- no pretibial edema, no calf tenderness Neuro- alert, oriented x 3; no gross focal neurologic deficits Skin- warm & dry Results & Data Results & Data Vital Signs (Past 12 Hours) Vital Signs Temp Pulse Resp BP Pulse Ox O2 Del Method 12/15/24 07:25 37.2 C 97 H 18 156/90 H 95 Room Air 12/15/24 03:19 36.8 C 81 18 145/84 H 94 Room Air 12/14/24 22:52 37.1 C 81 18 134/80 96 Room Air all noted and reviewed including below
--- NOTE | 2024-12-15 10:31 | Discharge Summary ---
Discharge Summary Date of Service December 15, 2024 Principal Dx & Hospital Course #1 = Principal Diagnosis (1) Abdominal pain, acute, epigastric: (2) S/P laparoscopic cholecystectomy: Plan per admitting service notes with addendum: Mr. Jesenia Olmedo is a 59 yr old male with history of polyarthralgia, HTN, hyperlipidemia, migraines GERD, and chronic nausea who will be admitted to med/tele iso refractory nausea and abdominal as well as assessment of hematemesis. Hematemesis noted and given current presentation, chronic nsaid use, and not clearly related to post op, will keep NPO, start protonix and consult GI Last endoscopy reports as follows: 2020: The esophagus was normal. A small hiatal hernia was present. The entire examined stomach was otherwise normal. Biopsies were taken with a cold forceps for Helicobacter pylori testing. Verification of patient identification for the specimen was done by the physician and nurse using the patient's name and medical record number. Estimated blood loss was minimal. The examined duodenum was normal. The cardia and gastric fundus were normal on retroflexion. 2016: Impression: - Z-line irregular, 38 cm from the incisors. Biopsied. - Small hiatus hernia. - Normal examined duodenum. Recommendation: - Await pathology results. - Follow an antireflux regimen. - Use Protonix (pantoprazole) 40 mg PO BID. - Return to primary care physician as previously scheduled. - Discharge patient to home. NAUSEA, HEMATEMESIS, ABDOMINAL PAIN LIKELY SECONDARY TO HIATAL HERNIA, WITH JARROD ULCERS s/p lap annie 12/[address] Dillon patient underwent above due to GI symptoms felt to be secondary to biliary dyskinesia patient continued to have persistent nausea and abdominal pain after procedure 12/12 still having abd pain, nausea repeat CT abd/pelvis: 1. Trace pleural effusions with prominent right basilar consolidation which is new/progressed from yesterday's exam suspicious for aspiration pneumonitis. 2. Large hiatal hernia. 3. Evidence of recent laparoscopic cholecystectomy. There is no postoperative fluid collection, however small amount of nonspecific free pelvic fluid has increased from yesterday's study. 4. No bowel obstruction or bowel wall thickening. 5. Indeterminate enhancing linear focus within the prostate apex. Correlate with PSA level. GI notified, EGD planned Gen Surg- symptoms unlikely related to Lap Annie done last week, LFTs normal 1/24 Status post EGD: Positive large hiatal hernia, 9cm, with paraesophageal component, positive Jarrod Ulcers HIDA scan: negative GI service notes reviewed- recommend General Surgery eval for hiatal hernia repair General surgery unfortunately does not perform hiatal hernia repair Discussed with patient and his , called [facility] and [facility] in [place] to transfer patient for evaluation of hiatal hernia repair at this time, recommendation is to continue with conservative management and monitor closely At this point, will add sucralfate 4 times daily Continue Protonix drip Continue n.p.o. except medications and sips of water for bowel rest Will reevaluate tomorrow hopefully will be able to start with clear liquids 12/14 had severe chest and abdominal pain, after starting clear liquid for the [address] abd/pelvis: ABDOMEN AND PELVIS CT WITHOUT CONTRAST COMPARISON STUDY: 12/12/2024 FINDINGS: There is persistent patchy consolidation at the visualized right lower lung, improved. There is a stable trace right pleural effusion. Stable large hiatal hernia. ABDOMEN: Gallbladder is surgically absent. Liver, spleen, pancreas, and adrenal glands have an unremarkable non-IV contrasted appearance. Kidneys show no hydronephrosis or calculi. There are mild atherosclerotic calcifications. No abdominal aortic aneurysm. Pelvis: Urinary bladder is decompressed. Prostate is enlarged. There is no significant retained stool. There is mild diffuse wall thickening and inflammation at the colon consistent with diffuse colitis. Normal appendix. No other bowel inflammation or obstruction. Stable small amount of low pelvic ascites. No free air or abscess. No enlarged adenopathy. Osseous structures: No acute osseous findings. IMPRESSION: 1. Persistent pneumonia at the right lung, improved. 2. Interval mild diffuse colitis. 3. Otherwise as described. discussed with GI and Gen Surg- recommend re-evaluation for hiatal hernia repair 12/15 discussed with [facility] Surgeon Dr. Shmuel Mayen- patient not improving at all, cannot tolerate even clear liquid diet due to severe chest and abdominal pain requiring IV Dilaudid patient accepted for transfer today NG tube placement also recommended KUB: FINDINGS: There is a stable hiatal hernia with approximately a third of the stomach above the diaphragm. The nasogastric tube tip is in the lower aspect of the hiatal hernia just above the diaphragm. There is mild gaseous gastric distention. IMPRESSION: Nasogastric tube tip is in the portion of the stomach above the diaphragm. discussed with Gen Surg Dr. [place] ok to maintain NG tube in current location, with low intermittent suction Aspiration Pneumonia 12/12 CT abdomen and pelvis showing right lower lobe consolidation with air bronchograms possible aspiration pneumonia Cipro + Flagyl changed to Zosyn IV 12/15 Respiratory status stable continue IV Zosyn day#4 Continue to monitor closely Abnormal CT abdomen/pelvis findings Cardiomegaly with coronary artery calcifications. Prostatomegaly with 1.6 cm focus of increased attenuation/enhancement within the left prostate apex. Indeterminate enhancing linear focus within the prostate apex. Correlate with PSA level. Atherosclerosis of the aorta. Liver is within normal limits. Subcentimeter hypodensity in the inferior right hepatic lobe on image 43 series 2 is too small to characterize, likely benign. Subcentimeter hypodense focus of the inferior pole right kidney is too small to characterize, likely a cyst. Please refer to full report in the Ordered Studies section Further work up, management, and ff up as outpatient Abnormal Urinalysis (+) protein, ketones, nitrites, bilirubin, urobilinogen, leukocyte esterase no urinary symptoms will need repeat UA as outpatient #Polyarthralgia #chronic low back pain: follows rheumatology Low suspicion for an inflammatory arthritis per rheumatology Hold celebrex and NSAIDs for now #Migraines Resume Topamax currently 100 mg daily when able Resume Cymbalta 60 mg, riboflavin 400 mg, magnesium oxide 100 mg On Emgality monthly monoclonal injection q month #HTN hold lisnopril for now given limited po intake DVT SCDs Full code Disposition transfer to [facility] plan of care discussed with patient in detail and at length all questions answered he is understanding, agreeable, comfortable with the plan of care Notes For Next Care Provider Abnormal CT abdomen/pelvis findings Cardiomegaly with coronary artery calcifications. Prostatomegaly with 1.6 cm focus of increased attenuation/enhancement within the left prostate apex. Indeterminate enhancing linear focus within the prostate apex. Correlate with PSA level. Atherosclerosis of the aorta. Liver is within normal limits. Subcentimeter hypodensity in the inferior right hepatic lobe on image 43 series 2 is too small to characterize, likely benign. Subcentimeter hypodense focus of the inferior pole right kidney is too small to characterize, likely a cyst. Please refer to full report in the Ordered Studies section Further work up, management, and ff up as outpatient Medication Changes From Visit IV Zosyn every 8 hours Protonix drip Famotidine 20 mg IV every 12 Sucralfate 1 g 4 times daily D5 NSS with K Admission HPI Per Admitting Provider Mr. Jesenia Olmedo is a 59 yr old male with history of polyarthralgia, HTN, hyperlipidemia, migraines GERD, and chronic nausea presented to [facility] ED due to acute refractory nausea and abdominal pain. Patient with history of nausea for last 2 months under evaluation of GI and Surgery. It was suspected that patient was experiencing biliary dyskinesia and is now s/p lap annie on 12/06. History mostly gathered by 2/2 pain and discomfort. Patient was reportedly doing well until late last evening when he noted a "bubble" like sensation then tight pain in his epigastrium. He started to vomit bile, but then noted this am he vomited "dark black fluid and blood." Patient states pain is ongoing and with waves of cramps/tightening and persistent nausea. Nothing given in ED has aided symptoms to date. Patient states he has been passing gas and stool appropriately. Gen surg evaluated and base upon imaging dose not suspect symptoms related to recent operation. In the ED, vitals were notable for BP of 150s, HR of 80-90s, and O2 sat of high 90s Imaging revealed changes c/w post operative instrumentation labs with WBC 13.37, stable hgb for now at 15.4, bun 32 EKG qtc 437, IRBBB ED interventions: analgseia, antiemetics (zofran x 1, compazine x 1, reglan x 1, famotidine/bendryl) Consultants: Gen Surg, GI Patient to be admitted to med/tele for further evaluation and management of refractory nausea Admission Exam Per Admitting Provider GENERAL APPEARANCE: AxOx4,extremely uncomfortable gentleman, pain improved with legs bent HEENT: NC, AT. MMM. EOMI, clear conjunctiva, oropharynx clear. NECK: Supple without lymphadenopathy. No stiffness or restricted ROM. HEART: Normal rate and regular rhythm, normal S1/S1, no m/r/g LUNGS: CTAB, moving air well. No crackles or wheezes are heard. ABDOMEN: laparoscopic surgical incisions well approximately with out signs of superimposed infection, tenerness along epigastrium, bruising c/w recent procedure, BS++, no guarding on exam BACK: No CVAT, no obvious deformity. EXTREMITIES: Without cyanosis, clubbing or edema. NEUROLOGICAL: Grossly nonfocal. Alert and oriented, moving all 4 extremities. CN not formally tested but appear grossly intact. Discharge Exam General- oriented x 3, not in distress, speaks in sentences with no effort or accessory muscle use Eyes- anicteric Neck- no JVD Lungs- mild rhonchi R base, clear on the left Heart- normal rate, regular rhythm; no murmurs Abdomen- normal bowel sounds, nondistended, soft, no tenderness Extremities- no pretibial edema, no calf tenderness Neuro- alert, oriented x 3; no gross focal neurologic deficits Skin- warm & dry Updated Medication List Medication Instructions Recorded Confirmed Type lisinopril 10 mg tablet 10 mg PO QAM 07/30/18 12/11/24 History galcanezumab-gnlm 120 mg/mL 120 mg subcut MONTHLY 07/29/24 12/11/24 History subcutaneous pen injector (Emgality Pen) celecoxib 200 mg capsule 200 mg PO BID 12/11/24 12/11/24 History dihydroergotamine 0.5 mg/pump act. 1 spray intranasal UD PRN 12/11/24 12/11/24 History (4 mg/mL) nasal spray Prolonged headache attack duloxetine 30 mg capsule,delayed 30 mg PO QAM 12/11/24 12/11/24 History release iron,carbonyl 65 mg-vitamin C 125 1 tab PO Q OTHER DAY 12/11/24 12/11/24 History mg tablet,delayed release (Vitron-C) promethazine 25 mg tablet 25 mg PO Q6H PRN Nausea 12/11/24 12/11/24 History rabeprazole 20 mg tablet,delayed 20 mg PO DAILYBB 12/11/24 12/11/24 History release rosuvastatin 5 mg tablet 5 mg PO HS 12/11/24 12/11/24 History tadalafil 20 mg tablet 20 mg PO 2XWK 12/11/24 12/11/24 History topiramate 100 mg tablet 100 mg PO QAM 12/11/24 12/11/24 History hydromorphone (PF) 2 mg/mL 1 mg (0.5 mL) IV Q6H PRN pain #10 12/15/24 Rx injection syringe (Dilaudid (PF)) mL sucralfate 100 mg/mL oral 1 g (10 mL) PO QID 14 days #560 mL 12/15/24 Rx suspension zolpidem 5 mg tablet 5 mg PO HS PRN insomnia #10 tabs 12/15/24 Rx Hospital Stay Data Consultations 12/11/24 15:06 ED Decision to Admit Stat 12/11/24 15:31 Consult Gastroenterology Routine 12/11/24 15:49 Consult General Surgery Routine Procedures Performed Operation Date: 12/13/24 17:00 Actual Procedures p EGD Biopsy Cytology - Aurelio Rice MD Diagnostic Imagining Performed 12/11/24 10:54 CT abd pelvis IV con only Stat CLINICAL HISTORY: diffuse abd pain, gallbladder surgery 5 days ago TECHNIQUE: Helical axial images of the abdomen and pelvis were obtained and displayed. Automated dose lowering techniques and/or adjustment according to patient size were utilized for this exam. This exam was performed with intravenous contrast. CT DOSE: 1931.67 mGy.cm COMPARISON: Comparison is made to CT abdomen pelvis 11/28/2008 FINDINGS: Lower chest: Bibasilar atelectasis versus scarring is seen. Liver: Unremarkable. No focal lesions are seen. Gallbladder and biliary tree: Patient is status post cholecystectomy. No intra- or extrahepatic biliary ductal dilation. Pancreas: Unremarkable, no focal lesions. Spleen: Unremarkable. Adrenals: Unremarkable. Kidneys and ureters: Subcentimeter hypodensities are too small to characterize. Bladder: Unremarkable. Reproductive organs: Unremarkable. Bowel: The appendix is normal. A moderate hiatal hernia is seen. Lymph nodes Retroperitoneal: Unremarkable. Pelvic: Unremarkable. Mesenteric: Unremarkable. Peritoneum: Fat stranding and a small amount of free fluid is seen in the gal lbladder fossa. No well-defined fluid collection is seen. Vessels: Minimal atherosclerotic disease is noted. Abdominal wall: Fat stranding seen near the umbilicus compatible with port insertion. Bones: Degenerative changes in the visualized spine. IMPRESSION: No evidence of abscess or biliary leak in this patient status post recent cholecystectomy. There is fat stranding in the right upper quadrant compatible with recent instrumentation, as well as abdominal wall fluid. ACT 112: Negative or not required by law. 12/12/24 13:00 CT Abd and Pelvis [CT abd pelvis oral and IV con] Routine ABDOMEN AND PELVIS CT WITH IV AND ORAL CONTRAST CT DOSE: 1348.48 mGy.cm HISTORY: Acute nausea with lower abdominal pain nausea, lower abd pain TECHNIQUE: Multiaxial CT images of the abdomen and pelvis were performed following the IV administration of 94 cc of Optiray and oral contrast. A dose lowering technique was utilized adhering to the principles of ALARA. COMPARISON STUDY: CT abdomen and pelvis 12/11/2024 FINDINGS: There is progressive pronounced consolidative and groundglass densities within the right lung base, noted within the basal segments of the right lower lobe with air bronchograms and right lower lobe mucus plugging which have progressed from yesterday's exam. Trace pleural effusions. Mild linear left basilar consolidation. Cardiomegaly with coronary artery calcifications. There is no pneumatosis or pneumoperitoneum. Unremarkable spleen, pancreas and adrenal glands. Liver is within normal limits. Subcentimeter hypodensity in the inferior right hepatic lobe on image 43 series 2 is too small to characterize, likely benign. Cholecystomy clips. There is stranding/trace fluid within the ulysses hepatis and also along the inferior right hepatic lobe. No drainable postoperative collection or choledocholithiasis identified. Unremarkable kidneys. No hydronephrosis. Subcentimeter hypodense focus of the inferior pole right kidney is too small to characterize, likely a cyst. Decompressed bladder. Prostatomegaly with 1.6 cm focus of increased attenuation/enhancement within the left prostate apex. Atherosclerosis of the aorta. Increased amount of free fluid within the pelvis, still a small amount. Mid to distal esophageal wall thickening with large hiatal hernia. Moderate colonic fecal retention. Normal appendix. No acute fracture. Postoperative changes of the anterior abdominal wall. IMPRESSION: 1. Trace pleural effusions with prominent right basilar consolidation which is new/progressed from yesterday's exam suspicious for aspiration pneumonitis. 2. Large hiatal hernia. 3. Evidence of recent laparoscopic cholecystectomy. There is no postoperative fluid collection, however small amount of nonspecific free pelvic fluid has increased from yesterday's study. 4. No bowel obstruction or bowel wall thickening. 5. Indeterminate enhancing linear focus within the prostate apex. Correlate with PSA level. ACT 112: Negative or not required by law. The above report was generated using voice recognition software. It may contain grammatical, syntax or spelling errors. 12/14/24 13:16 CT Abd and Pelvis [CT abd pelvis wo con] Stat ABDOMEN AND PELVIS CT WITHOUT CONTRAST CT DOSE: 1286.7 mGy.cm HISTORY: severe upper abdominal pain TECHNIQUE: Multiaxial CT images of the abdomen and pelvis were performed without contrast. A dose lowering technique was utilized adhering to the principles of ALARA. COMPARISON STUDY: 12/12/2024 FINDINGS: There is persistent patchy consolidation at the visualized right lower lung, improved. There is a stable trace right pleural effusion. Stable large hiatal hernia. ABDOMEN: Gallbladder is surgically absent. Liver, spleen, pancreas, and adrenal glands have an unremarkable non-IV contrasted appearance. Kidneys show no hydronephrosis or calculi. There are mild atherosclerotic calcifications. No abdominal aortic aneurysm. Pelvis: Urinary bladder is decompressed. Prostate is enlarged. There is no significant retained stool. There is mild diffuse wall thickening and inflammation at the colon consistent with diffuse colitis. Normal appendix. No other bowel inflammation or obstruction. Stable small amount of low pelvic ascites. No free air or abscess. No enlarged adenopathy. Osseous structures: No acute osseous findings. IMPRESSION: 1. Persistent pneumonia at the right lung, improved. 2. Interval mild diffuse colitis. 3. Otherwise as described. ACT 112: Negative or not required by law. Discharge Instructions Given to Patient (Per Discharging Provider) Please refer to accompanying hospital discharge summary for further details. Total Time Total Time Spent Total Time Spent (In Minutes): 90 minutes
--- NOTE | 2024-12-15 10:41 | XRay Report ---
KUB HISTORY: NGT placement COMPARISON STUDY: 12/11/2024 x-ray and CT scan yesterday FINDINGS: There is a stable hiatal hernia with approximately a third of the stomach above the diaphra gm. The nasogastric tube tip is in the lower aspect of the hiatal hernia just above the diaphragm. Th ere is mild gaseous gastric distention. IMPRESSION: Nasogastric tube tip is in the portion of the stomach above the diaphragm. ACT 112: Negative or not required by law. The above report was generated using voice recognition software. It may contain grammatical, syntax o r spelling errors. Electronically signed by: Hermilo Wall M.D. 12/15/2024 10:40 AM
[2024-12-15 11:30] VITALS: RESP 16; O2SAT 96
[2024-12-15] MEDS: D5NSS + 20MEQ KCL 20 MEQ/1,000 ML BAG IV SCH (15:16)
[2024-12-15 16:20] VITALS: TEMP 99.7
[2024-12-15 20:26] VITALS: BP 158/82; PULSE 78
== END 2024-12-15 20:26 | disposition short-term general hospital (02) | DRG 392 ==
LOC: ED 10:33 → SUATTDRO 15:35 → EDINP 15:35 → 2N 16:36

== ENCOUNTER 2025-10-31 11:06 | Observation (INO) ==
--- NOTE | 2025-10-23 15:19 | Anesthesiology Consultation ---
Date of Service October 23, 2025 Assessment & Plan (1) Encounter for pre-operative examination: - Infectious disease screening: Per assessment on 10/22/25- No known recent infectious disease contacts or current infectious disease symptoms. - Cardiology office visit 01/08/25 [facility]: "...cardiomegaly and coronary calcifications...will be seeing hematology in March for clotting disorder...calcification of coronary artery-restart ASA 81 mg daily once he is off Eliquis...repeat stress test in 5 years...follow up prn..." - [place] [facility] visit 09/18/25: "Jesenia is a 60 yo M here today for evaluation of his headaches. As for the etiology, I agree with previous diagnosis of migraine -- we discussed how odd it is that it started at age 56. I do suspect his family hx of "sinus headaches," were possibility underlying migraine - he also has some associated conditions -- motion sickness, night mclain in childhood and brain freezes. He does have a red flag sign of known prostate cancer- however this does not tend to metastasize to brain -- and he has had a relatively recent MRI of the head in 09/2024 which was normal. He does meet ICHD-3 criteria for migraine without aura.. As for treatment recommendations: I have asked him to track his attacks. Acute: DHE NS -- I also suggested he try OTC excedrin Prevention: Continue emgality. I agree with his idea of tapering off topamax -- reduce from 100mg to 50mg for 1-2 months -- then stop. He has successfully tapered off his TCA and Cymbalta. We did discuss how propranolol has efficacy for both migraine and intention tremor --can revisit this agent if either condition progresses Goal: Find an effective headache abortive agent, reduce attack frequency, severity and/or duration by 50 percent. Follow up in 6 months.." - S/P Right Total shoulder arthroplasty 07/23/25: Grade 1 view, Glidescope#3, ETT 7.5 (Per anesthesia records: LMA working well supine but large leak in seated position. Unable to troubleshoot leak with repositioning. Patient intubated with glidescope under drape, 7.5 ETT). Chart Review Chart Review: Acceptable Risk for Surgery (pending evaluation DOS) and Patient NOT seen in Pre Admission Testing History Surgery Operation Date: 10/31/25 13:10 Proposed Procedures p Revision Right Anatomic Total Shoulder Arthroplasty to Right Reverse Total Shoulder Arthroplasty - Maco Marsh, Height/Weight Height: 6 ft 3 in Weight: 90.718 kg Allergies Allergy/AdvReac Type Severity Reaction Status Date / Time No Known Allergies Allergy Verified 10/31/25 11:10 Medications Home Medications Medication Instructions Recorded Confirmed Last Taken lisinopril 10 mg tablet 10 mg PO QAM 07/30/18 10/31/25 10/30/25 05:00 dihydroergotamine 0.5 mg/pump act. 1 spray intranasal UD PRN 12/11/24 10/31/25 07/18/25 (4 mg/mL) nasal spray Prolonged headache attack iron,carbonyl 65 mg-vitamin C 125 1 tab PO Q2D 12/11/24 10/31/25 10/29/25 mg tablet,delayed release (Vitron-C) rabeprazole 20 mg tablet,delayed 20 mg PO QAM 12/11/24 10/31/25 10/30/25 05:00 release (AcipHex) tadalafil 20 mg tablet (Cialis) 20 mg PO 2XWK 12/11/24 10/31/25 07/22/25 zolpidem 5 mg tablet 5 mg PO HS PRN insomnia #10 tabs 12/15/24 10/31/25 Unknown ascorbic acid (vitamin C) 500 mg 500 mg PO QAM 04/30/25 10/31/25 10/30/25 05:00 tablet (Vitamin C) celecoxib 200 mg capsule (Celebrex) 200 mg PO BID 09/02/25 10/31/25 10/30/25 22:00 rosuvastatin 5 mg tablet 10 mg PO HS 09/02/25 10/31/25 10/30/25 22:00 topiramate 100 mg tablet (Topamax) 50 mg PO QAM 09/18/25 10/31/25 10/30/25 22:00 amoxicillin 500 mg tablet 2,000 mg (4 x 500 mg) PO ONCE #4 10/06/25 10/31/25 Unknown tabs oxycodone 5 mg tablet 5 mg PO Q6 PRN pain #20 tabs 10/06/25 10/31/25 10/30/25 22:00 galcanezumab-gnlm 120 mg/mL 120 mg subcut MONTHLY 10/22/25 10/31/25 10/06/25 subcutaneous pen injector (Emgality Pen) Active Medications Generic Name Dose Route Start Last Admin Trade Name Burkeq PRN Reason Stop Dose Admin Acetaminophen 1,000 mg 10/31/25 06:00 10/31/25 11:27 Acetaminophen 500 Mg Tab PO 10/31/25 18:00 1,000 mg PREOP OMKAR Administration Dexamethasone Sodium Phosphate 10 mg 10/31/25 06:00 10/31/25 11:28 DexamethasonePf 10 Mg/Ml Vial IV 10/31/25 18:00 10 mg PREOP OMKAR Administration Famotidine 20 mg 10/31/25 06:00 10/31/25 11:27 Famotidine 20 Mg Tab PO 10/31/25 18:00 20 mg PREOP OMKAR Administration Gabapentin 600 mg 10/31/25 06:00 10/31/25 11:27 Gabapentin 600 Mg Dose PO 10/31/25 18:00 600 mg PREOP OMKAR Administration Lactated Ringer's 1,000 mls @ 15 mls/hr 10/31/25 06:00 10/31/25 11:27 Lr IV 11/01/25 05:59 15 mls/hr .Q24H OMKAR Administration Lactated Ringer's 1,000 mls @ 60 mls/hr 10/31/25 06:00 10/31/25 11:28 Lr IV 10/31/25 22:39 Not Given .[id number] OMKAR Past Medical History Medical History Barretts syndrome Chronic lumbar pain Chronic tremor Left hand CMC arthritis Dyslipidemia GERD (gastroesophageal reflux disease) Greater trochanteric bursitis of right hip History of COVID-19 (2021) Sore throat, fatigue, home test > resolved History of migraine History of prostate cancer Dx 2020, [facility] monitoring, no treatment as of yet History of radicular syndrome of lower extremity HTN (hypertension) Hx of blood clots 11/2024, right arm following the lap lay or multiple failed IV sites, was on Eliquis for 3 months, no noted issues since Follows with [place] hematology Hx of hiatal hernia Impingement syndrome of right shoulder Lumbar facet joint syndrome Myofascial pain Nausea Occasional Osteoarthritis of left shoulder Osteoarthritis of right shoulder Sacroiliitis Past Family History Family History Father Family history of diabetes mellitus Prostate cancer, Onset Age: 70 Radiation therapy Mother No problems noted. Brother No problems noted. Brother No problems noted. Sister No problems noted. Sister No problems noted. Daughter No problems noted. Other No family history of adverse response to anesthesia Past Surgical History Surgical History H/O thumb surgery B/L thumb surgery History of arthroscopic knee surgery Right History of colonoscopy History of elbow surgery Right History of esophagogastroduodenoscopy (EGD) (2024) History of hip surgery (2023) Right [place] of [place] fundop[place] [facility] [place] History of prostate biopsy (08/06/25) History of right shoulder replacement (07/25/25) Hx laparoscopic cholecystectomy 11/2024 Hx of arthroscopy of shoulder Right (04/2025) Social History Smoking Status: Never smoker Do You Dip or Chew Tobacco: No Hx Alcohol Use: Yes Alcohol type: beer alcohol intake frequency: holidays/special occasions only Hx Substance Use: No substance use type: does not use Physical Exam Vital Signs Last Vital Signs Temp 36.8 C 10/31/25 11:41 Pulse 58 L 10/31/25 11:41 Resp 20 10/31/25 11:41 BP 152/92 H 10/31/25 11:41 Pulse Ox 98 10/31/25 11:41 O2 Del Method Room Air 10/31/25 11:41 Testing Laboratory Results 10/22/25 WBC 3.2 H/H 14.7/43.5 PLATELETS 177 SODIUM 140 POTASSIUM 3.9 CHLORIDE 105 CO2 29 BUN 27 CREATININE 1.05 GLUCOSE 95 PT 10.3 PTT 26 INR 1.0 Surgeon preop orders not available at current time of review* Electrocardiogram Date: 08/06/25 SB at 59bpm. iRBBB. No significant change compared to 07/11/2025 per concrete rod buster comparison. Chest X-Ray Date: 08/06/25 Findings: + NAD Stress Test Date: 12/29/23 MPHR 91% METS 8 Normal without resting LV wall motion abnormalities or inducible ischemia LVEF 55% Mild mitral regurgitation Borderline mitral valve prolapse present Grade I diastolic dysfunction
[~2025-10-31 11:06] MED LIST: BUPIVACAINE 0.5 % 5 MG/1 ML PF 10ML VIAL ONE
[2025-10-31] MEDS: LR 15ML/HR IV SCH (11:27)
[2025-10-31] MEDS: FAMOTIDINE 20 MG TAB PO SCH (11:27)
[2025-10-31] MEDS: ACETAMINOPHEN 500 MG TAB PO SCH ×2 (11:27→21:33)
[2025-10-31] MEDS: GABAPENTIN 600 MG DOSE PO SCH (11:27)
[2025-10-31] MEDS: LR 60ML/HR IV SCH (11:28)
[2025-10-31] MEDS: dexAMETHasone**PF** 10 MG/ML VIAL IV SCH (11:28)
[2025-10-31] MEDS ORDERED: MIDAZOLAM HCL 1 MG/ML 2ML VIAL ONE (11:33)
[2025-10-31] MEDS ORDERED: PROMETHAZINE HCL 6.25 MG in SODIUM CHLORIDE 0.9% 50 ML IV PRN (11:34)
[2025-10-31] MEDS ORDERED: ATROPINE SULFATE 0.1 MG/ML 10ML SYR IV PRN (11:34)
[2025-10-31] MEDS ORDERED: ONDANSETRON INJ 2 MG/ML 2 ML VIAL IV PRN ×2 (11:34→15:11)
[2025-10-31] MEDS ORDERED: ROCURONIUM BROMIDE 10 MG/ML 5 ML VIAL IV ONE ×2 (11:35→13:16)
[2025-10-31] MEDS ORDERED: PROPOFOL IV EMULSION 10 MG/ML 20 ML VIAL IV ONE (11:35)
--- NOTE | 2025-10-31 11:58 | History & Physical Bridge Note ---
Date of Service October 31, 2025 History & Physical Bridge Note I have examined the patient, reviewed the History & Physical and in the interval since the performance of the History & Physical I have noted the following changes of clinical significance: no changes noted
[2025-10-31] MEDS: TRANEXAMIC ACID 1,000 MG **IV Pre-op IV SCH (12:41)
[2025-10-31] MEDS ORDERED: ePHEDrine sulfate 50 MG/5 ML SYR ONE (13:10)
[2025-10-31] MEDS: ORTHO JOINT ANESTHETIC ONE (13:21)
[2025-10-31] MEDS: ROPIV 0.5% 246mg, Ketorolac 30mg, EPINEPHrine 0.5mg in NSS INFIL SCH (13:50)
[2025-10-31] MEDS ORDERED: ONDANSETRON INJ 2 MG/ML 2 ML VIAL ONE (14:08)
[2025-10-31] MEDS ORDERED: SUGAMMADEX SODIUM 200 MG/2 ML VIAL IV ONE (14:09)
[2025-10-31] MEDS ORDERED: GLYCOPYRROLATE 0.2 MG/ML VIAL ONE (14:11)
--- NOTE | 2025-10-31 14:13 | Operative Report ---
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 He was seen in the preoperative holding area and the operative extremity identified and signed. Is given a preoperative antibiotic in the right interscalene nerve block. He was taken back the operating room and laid on table supine position. He was put under general anesthesia. He was put into the beachchair position. The right shoulder was prepped and draped sterile fashion. A timeout was done. The patient and the operative extremity was properly identified. The previous incision was opened back up. Dissection was taken down through the fascia. The deltopectoral interval was split. The shoulder replacement was subluxated anteriorly. There was a tear of the upper half of the subscapularis and the entire rotator interval. The lower border of the subscapularis was released off the inferior humerus. The shoulder was then dislocated. The humeral head was then removed. The glenoid was then exposed. The glenoid implant was then removed in piecemeal fashion. At this point we decided to convert to a reverse shoulder replacement. A guidepin was placed in the center of the prior central peg of the glenoid. A 25 mm baseplate reamer was then used. A 25 mm small superior augment was then reamed. The final 25 mm small augment baseplate was then impacted into place. A single 6.5 mm central screw was placed followed by superior and inferior locking screws. Is able to get excellent purchase of all the screws. A 40 mm glenosphere was then impacted into place. The proximal humerus was then exposed. A trial +6 offset humeral tray was used. The shoulder was reduced. The shoulder was brought through full range of motion and felt to be stable. The final standard humeral bearing was snapped into a +6 offset humeral tray. The humeral tray was then impacted onto the humeral stem. The shoulder was then reduced. The shoulder was brought through full range of motion and felt to be stable. The inferior border of the subscapularis was able to be repaired around the upper border of the pectoralis major. This was done just to get a little bit of increase stability. The entire joint was then irrigated with normal saline solution. A 3-minute Irrisept lavage was then done. The deltopectoral interval was then closed with 2-0 Vicryl. Skin was closed with 3-0 Vicryl and a Morgan Zipline. He was placed in a Silverlon dressing. He was given a regular arm sling. He was then extubated and transferred to a hospital bed. He was taken to the postanesthesia care unit in stable condition. He tolerated the procedure well. Stephan Sapp PA-C, was present for the entire procedure. He was critical for patient positioning, prepping, draping, retraction exposure, wound closure and application of sterile dressing. I attest to the content of the Intraoperative Record and any orders documented therein. Any exceptions are noted below.
--- NOTE | 2025-10-31 15:01 | Anesthesiology Progress Note ---
Date of Service October 31, 2025 Anesthesia Post Procedure Vital Signs Vital Signs: Temp Pulse Resp BP BP Pulse Ox O2 Del Method 10/31/25 14:55 78 20 163/95 H 98 Oxymask 10/31/25 14:45 73 13 150/96 H 98 Oxymask 10/31/25 14:35 35.1 C L 70 21 162/90 H 100 Oxymask 10/31/25 11:41 36.8 C 58 L 20 152/92 H 98 Room Air O2 Flow Rate 10/31/25 14:55 2 10/31/25 14:45 5 10/31/25 14:35 7 10/31/25 11:41 Transfer of Care Handoff Completed per policy Notes Mental Status: alert / awake / arousable and participated in evaluation Patient Amnestic to Procedure: Yes Nausea / Vomiting: adequately controlled Pain: adequately controlled Airway Patency, RR, SpO2: stable & adequate BP & HR: stable & adequate Hydration State: stable & adequate Anesthetic Complications: no major complications apparent and Pt Satisfied with anesthetic care
[2025-10-31] MEDS ORDERED: NALOXONE HCL 0.4 MG/1 ML VIAL/CARP IV PRN (15:11)
[2025-10-31] MEDS ORDERED: diphenhydrAMINE Capsule 25 MG CAP PO PRN (15:11)
[2025-10-31] MEDS ORDERED: ALUMINUM/MAGNESIUM SUSP 30 ML UDC PO PRN (15:11)
[2025-10-31] MEDS ORDERED: METOCLOPRAMIDE HCL INJ 5 MG/ML 2 ML VIAL IV PRN (15:11)
[2025-10-31] MEDS ORDERED: MAGNESIUM HYDROXIDE SUSP 30 ML UDC PO PRN (15:11)
--- NOTE | 2025-10-31 15:27 | XRay Report ---
RIGHT SHOULDER 2 VIEWS CLINICAL HISTORY: Postoperative examination. FINDINGS: 2 portable views of the right shoulder are compared to study dated 07/25/2025. The skeletal s tructures are osteopenic. A revised right shoulder arthroplasty is in near anatomic alignment. No acu te fracture is seen. Subcutaneous gas and soft tissue swelling overlying the right shoulder are expec racquel postsurgical changes. Mild productive degenerative change is noted at the acromioclavicular joint . IMPRESSION: Expected postoperative findings status post right shoulder arthroplasty revision. No acut e fracture is seen. Electronically signed by: Shmuel Holman M.D. 10/31/2025 3:24 PM
[2025-10-31] MEDS: SODIUM CHLORIDE 0.9% 1,000 ML IV SCH (17:00)
[2025-10-31] MEDS: KETOROLAC TROMETHAMINE 15 MG/ML VIAL IV SCH (17:14)
[2025-10-31 17:30] VITALS: RESP 16
[2025-10-31] MEDS: BUPIVACAINE LIPOSOME 1.3% 133 MG/10 ML VIAL ONE (18:48)
[2025-10-31] MEDS: ROSUVASTATIN CALCIUM 10 MG TAB PO SCH (21:34)
[2025-10-31] MEDS: SENNA 8.6 MG TAB PO SCH (21:34)
[2025-10-31] MEDS: ASPIRIN 81 MG ECTAB PO SCH (21:34)
[2025-10-31] MEDS: DOCUSATE SODIUM 100 MG CAP PO SCH (21:35)
[2025-10-31] MEDS: ZOLPIDEM TARTRATE 5 MG TAB PO PRN (21:41)
[2025-11-01 07:34] VITALS: BP 149/84; PULSE 56; TEMP 98.1; O2SAT 97
[2025-11-01] MEDS: MULTIVITAMIN TAB PO SCH (07:47)
[2025-11-01] MEDS: ASCORBIC ACID 500 MG TAB PO SCH (07:47)
[2025-11-01] MEDS: TOPIRAMATE 50 MG TAB PO SCH (07:48)
--- NOTE | 2025-11-01 07:52 | Orthopedic Progress Note ---
Date of Service November 01, 2025 Assessment & Plan (1) Status post reverse total arthroplasty of right shoulder: Overall he is doing fairly well. He is not having much pain in the right shoulder. He will be seen by physical therapy today for ambulation and range of motion exercises. He can be discharged to home later today. He will follow-up with orthopedics in 2 weeks. Tod Ba was seen and examined at bedside this morning. Overall is doing very well. He is not having much pain in the right shoulder. He has been up and ambulating to the bathroom. He has no complaints.. Review of Systems All systems reviewed & are unremarkable except as noted in HPI & below. Physical Exam On physical exam of the right shoulder, the dressing is clean and dry. He is wearing a sling as instructed. He has active motion of his hand and his wrist.. Results & Data Results & Data Laboratory Results . Diagnostic Findings Postoperative x-rays of the right shoulder show the prosthesis to be in anatomic alignment without any evidence of fracture complication, or loosening.. PG Care Time/CCT Total # of Minutes Spent Total Time Spent with Patient: Total time spent is greater than 50% in coordination of care (as documented) at patient's floor/unit and/or counseling patient: Coding Level of Care Code 47612 Post Operative Follow-Up Diagnoses Status post reverse total arthroplasty of right shoulder Z96.611
== END 2025-11-01 11:00 | disposition home or self-care (01) ==
LOC: 3E 11:06 → ASU 11:06